=== PATIENT | female | born 1950 | race Caucasian/White ===

== ENCOUNTER 2017-05-07 11:51 | Inpatient (IN) | payer MEDICARE, BC ==
[2017-05-07] MEDS ORDERED: MAG HYDROX/ALUMINUM HYD/SIMETH 30 ML ORAL.SUSP PO (12:30)
[2017-05-07] MEDS ORDERED: CALCIUM CARBONATE 500 MG TAB.CHEW PO (12:30)
[2017-05-07] MEDS ORDERED: IBUPROFEN 400 MG TABLET. PO (12:30)
[2017-05-07] MEDS ORDERED: PROCHLORPERAZINE 25 MG SUPP.RECT. PR (12:30)
[2017-05-07] MEDS ORDERED: ACETAMINOPHEN 325 MG TABLET. PO (12:30)
[2017-05-07] MEDS ORDERED: LIDOCAINE WITH 8.4% SOD BICARB 3 ML DISP.SYRIN. (13:20)
[2017-05-07] MEDS ORDERED: MIDAZOLAM HCL/PF 2 MG/2 ML VIAL. (13:21)
[2017-05-07] MEDS ORDERED: fentaNYL PF VIAL 100 MCG/2 ML VIAL (13:21)
[2017-05-07] MEDS ORDERED: FLUMAZENIL 0.5 MG/5 ML VIAL. IV (13:21)
[2017-05-07] MEDS ORDERED: NALOXONE 0.4 MG/ML VIAL. (13:21)
[2017-05-07 13:29] LABS: INR 1.2 (0.8-1.1); PROTHROMBIN TIME PATIENT 14.3 SEC (11.7-14.0)
[2017-05-07] MEDS: fentaNYL PF VIAL 100 MCG/2 ML VIAL IV ×3 (14:00→18:33)
[2017-05-07] MEDS: MIDAZOLAM HCL/PF 2 MG/2 ML VIAL. IV (14:00)
[2017-05-07] MEDS: LIDOCAINE WITH 8.4% SOD BICARB 3 ML DISP.SYRIN. INJ (14:00)
[2017-05-07] MEDS: CIPROFLOXACIN 400MG PREMIX 200 ML IV (14:39)
[2017-05-07] MEDS: IV 1/2 NORMAL SALINE 1,000 ML IV ×2 (14:39→22:23)
[2017-05-07] MEDS: PANTOPRAZOLE IV PUSH 40 MG VIAL. IVP (14:40)
[2017-05-07] MEDS: LACTOBACILLUS RHAMNOSUS GG 1 CAPSULE. PO ×2 (14:52→21:27)
[2017-05-07] MEDS: HYDROcodone/APAP 5/325MG 1 TAB TABLET PO (21:27)
[2017-05-08] MEDS: CIPROFLOXACIN 400MG PREMIX 200 ML IV ×3 (00:17→20:31)
[2017-05-08 05:41] LABS: ADD MAN DIFF? NO
[2017-05-08 05:47] LABS: BASO % 0 % (0-3); EOS # 0.1 x10^3/uL (0.0-0.7); EOS % 2 % (0-3); HEMATOCRIT 26.9 % (36.0-47.0); HEMOGLOBIN 8.9 g/dL (12.0-15.5); LYMPH # 0.9 x10^3/uL (1.0-4.8); LYMPH % 24 % (24-48); MEAN CORPUSCULAR HEMOGLOBIN 27 pg (25-35); MEAN CORPUSCULAR HGB CONC 33 g/dL (31-37); MEAN CORPUSCULAR VOLUME 82 fL (79-100); MONO # 0.4 x10^3/uL (0.0-1.1); MONO % 11 % (0-9); NEUT # 2.3 x10^3uL (1.8-7.7); NEUT % 62 % (31-73); PLATELET COUNT 144 x10^3/uL (140-400); RED BLOOD COUNT 3.29 x10^6/uL (3.50-5.40); RED CELL DISTRIBUTION WIDTH 15.2 % (11.5-14.5); WHITE BLOOD COUNT 3.6 x10^3/uL (4.0-11.0)
[2017-05-08] MEDS: IV 1/2 NORMAL SALINE 1,000 ML IV ×2 (06:08→20:31)
[2017-05-08 06:31] LABS: ALBUMIN 2.4 g/dL (3.4-5.0); ALBUMIN/GLOBULIN RATIO 0.7 (1.0-1.7); ALK PHOS 54 U/L (46-116); ALT (SGPT) 14 U/L (14-59); ANION GAP 8 (6-14); AST (SGOT) 10 U/L (15-37); BLOOD UREA NITROGEN 7 mg/dL (7-20); BUN/CREATININE RATIO 7 (6-20); CALCIUM 8.3 mg/dL (8.5-10.1); CARBON DIOXIDE 28 mmol/L (21-32); CHLORIDE 105 mmol/L (98-107); GFR 55.6; GLUCOSE 104 mg/dL (70-99); MAGNESIUM 1.7 mg/dL (1.8-2.4); PHOSPHORUS 3.6 mg/dL (2.6-4.7); POTASSIUM 3.8 mmol/L (3.5-5.1); SODIUM 141 mmol/L (136-145); TOTAL BILIRUBIN 0.7 mg/dL (0.2-1.0); TOTAL PROTEIN 5.7 g/dL (6.4-8.2)
[2017-05-08] MEDS: LACTOBACILLUS RHAMNOSUS GG 1 CAPSULE. PO ×2 (09:10→20:31)
[2017-05-08] MEDS: PANTOPRAZOLE IV PUSH 40 MG VIAL. IVP (09:10)
[2017-05-08] MEDS ORDERED: IPRATRPIUM/ALBUTEROL 0.5/2.5MG 3 ML NEBU. IH (09:15)
[2017-05-08] MEDS ORDERED: NON FORMULARY ITEM (Albuterol Sulfate (Proair Hfa Inhaler) 1 PUFF) INH (09:15)
[2017-05-08] MEDS ORDERED: traMADol 50 MG TABLET PO (09:15)
[2017-05-08] MEDS ORDERED: ALBUTEROL SULFATE 2.5 MG/3 ML NEBU. NEB (09:45)
[2017-05-08] MEDS: PANTOPRAZOLE 40 MG TABLET.DR. PO ×2 (09:49→09:57)
[2017-05-08] MEDS: SERTRALINE 50 MG TABLET. PO (10:00)
[2017-05-08] MEDS: amLODIPine BESYLATE 5 MG TABLET PO (10:00)
[2017-05-08] MEDS: MELOXICAM 7.5 MG TABLET PO (10:01)
[2017-05-08] MEDS: LOSARTAN POTASSIUM 50 MG TABLET. PO (10:01)
[2017-05-08] MEDS: HYDROcodone/APAP 5/325MG 1 TAB TABLET PO ×2 (14:07→20:32)
[2017-05-08] MEDS: traZODone 50 MG TABLET. PO (20:32)
[2017-05-08] MEDS: PROCHLORPERAZINE 10 MG/2 ML VIAL. IV (22:46)
[2017-05-09] MEDS: PANTOPRAZOLE IV PUSH 40 MG VIAL. IVP (07:30)
[2017-05-09] MEDS: IV 1/2 NORMAL SALINE 1,000 ML IV ×2 (10:06→20:59)
[2017-05-09] MEDS: CIPROFLOXACIN 400MG PREMIX 200 ML IV ×2 (10:07→20:58)
[2017-05-09] MEDS: LACTOBACILLUS RHAMNOSUS GG 1 CAPSULE. PO ×2 (10:07→22:05)
[2017-05-09] MEDS: SERTRALINE 50 MG TABLET. PO (10:07)
[2017-05-09] MEDS: amLODIPine BESYLATE 5 MG TABLET PO (10:08)
[2017-05-09] MEDS: MELOXICAM 7.5 MG TABLET PO (10:08)
[2017-05-09] MEDS: PANTOPRAZOLE 40 MG TABLET.DR. PO (10:08)
[2017-05-09] MEDS: LOSARTAN POTASSIUM 50 MG TABLET. PO (10:08)
[2017-05-09] MEDS: HYDROcodone/APAP 5/325MG 1 TAB TABLET PO ×2 (10:41→22:05)
[2017-05-09] MEDS: ONDANSETRON PF 4 MG/2 ML VIAL. IV (21:04)
[2017-05-09] MEDS: HYDROmorphone 2 MG/ML VIAL IVP (21:06)
[2017-05-09] MEDS: ZOLPIDEM 5 MG TABLET. PO (22:04)
[2017-05-09] MEDS: traZODone 50 MG TABLET. PO (22:04)
[2017-05-10] MEDS: IV 1/2 NORMAL SALINE 1,000 ML IV ×3 (00:23→20:44)
[2017-05-10 04:36] LABS: ADD MAN DIFF? NO
[2017-05-10 04:50] LABS: BASO % 0 % (0-3); EOS # 0.1 x10^3/uL (0.0-0.7); EOS % 3 % (0-3); HEMATOCRIT 27.3 % (36.0-47.0); HEMOGLOBIN 8.9 g/dL (12.0-15.5); LYMPH # 0.8 x10^3/uL (1.0-4.8); LYMPH % 19 % (24-48); MEAN CORPUSCULAR HEMOGLOBIN 27 pg (25-35); MEAN CORPUSCULAR HGB CONC 33 g/dL (31-37); MEAN CORPUSCULAR VOLUME 82 fL (79-100); MONO # 0.4 x10^3/uL (0.0-1.1); MONO % 9 % (0-9); NEUT % 68 % (31-73); PLATELET COUNT 144 x10^3/uL (140-400); RED BLOOD COUNT 3.35 x10^6/uL (3.50-5.40); RED CELL DISTRIBUTION WIDTH 15.2 % (11.5-14.5); WHITE BLOOD COUNT 4.4 x10^3/uL (4.0-11.0)
[2017-05-10 05:01] LABS: ANION GAP 7 (6-14); BLOOD UREA NITROGEN 10 mg/dL (7-20); CALCIUM 8.1 mg/dL (8.5-10.1); CARBON DIOXIDE 27 mmol/L (21-32); CHLORIDE 104 mmol/L (98-107); GFR 55.6; GLUCOSE 143 mg/dL (70-99); POTASSIUM 3.9 mmol/L (3.5-5.1); SODIUM 138 mmol/L (136-145)
[2017-05-10] MEDS: MELOXICAM 7.5 MG TABLET PO (09:04)
[2017-05-10] MEDS: LACTOBACILLUS RHAMNOSUS GG 1 CAPSULE. PO ×2 (09:04→20:42)
[2017-05-10] MEDS: PANTOPRAZOLE 40 MG TABLET.DR. PO (09:04)
[2017-05-10] MEDS: SERTRALINE 50 MG TABLET. PO (09:04)
[2017-05-10] MEDS: amLODIPine BESYLATE 5 MG TABLET PO (09:05)
[2017-05-10] MEDS: CIPROFLOXACIN 400MG PREMIX 200 ML IV (09:05)
[2017-05-10] MEDS: LOSARTAN POTASSIUM 50 MG TABLET. PO (09:05)
[2017-05-10] MEDS: HYDROmorphone 2 MG/ML VIAL IVP (10:43)
[2017-05-10] MEDS ORDERED: cefTRIAXone SODIUM 2 GM in IV DEXTROSE 5% 100 ML IV (11:45)
[2017-05-10] MEDS: cefTRIAXone IV Push 2 GM VIAL. IVP (13:29)
[2017-05-10] MEDS: ONDANSETRON PF 4 MG/2 ML VIAL. IV (16:13)
[2017-05-10] MEDS ORDERED: NALOXONE 0.4 MG/ML VIAL. (16:48)
[2017-05-10] MEDS ORDERED: LIDOCAINE WITH 8.4% SOD BICARB 3 ML DISP.SYRIN. ×2 (16:48→17:33)
[2017-05-10] MEDS ORDERED: fentaNYL PF VIAL 100 MCG/2 ML VIAL ×2 (16:48→17:34)
[2017-05-10] MEDS ORDERED: MIDAZOLAM HCL/PF 2 MG/2 ML VIAL. ×2 (16:48→17:34)
[2017-05-10] MEDS ORDERED: FLUMAZENIL 0.5 MG/5 ML VIAL. IV (16:48)
[2017-05-10] MEDS: LIDOCAINE WITH 8.4% SOD BICARB 3 ML DISP.SYRIN. INJ (17:00)
[2017-05-10] MEDS: MIDAZOLAM HCL/PF 2 MG/2 ML VIAL. IV ×2 (17:00→17:59)
[2017-05-10] MEDS: fentaNYL PF VIAL 100 MCG/2 ML VIAL IV ×2 (17:00→17:59)
[2017-05-10] MEDS ORDERED: GELATIN SPONGE SIZE 12-7MM SPONGE. (17:37)
[2017-05-10] MEDS: traZODone 50 MG TABLET. PO (20:42)
[2017-05-10] MEDS: HYDROcodone/APAP 5/325MG 1 TAB TABLET PO (21:48)
[2017-05-11 04:53] LABS: ADD MAN DIFF? NO
[2017-05-11 05:08] LABS: BASO % 0 % (0-3); EOS # 0.1 x10^3/uL (0.0-0.7); EOS % 4 % (0-3); HEMATOCRIT 32.4 % (36.0-47.0); HEMOGLOBIN 10.4 g/dL (12.0-15.5); LYMPH # 0.7 x10^3/uL (1.0-4.8); LYMPH % 20 % (24-48); MEAN CORPUSCULAR HEMOGLOBIN 26 pg (25-35); MEAN CORPUSCULAR HGB CONC 32 g/dL (31-37); MEAN CORPUSCULAR VOLUME 82 fL (79-100); MONO # 0.3 x10^3/uL (0.0-1.1); MONO % 8 % (0-9); NEUT # 2.4 x10^3uL (1.8-7.7); NEUT % 67 % (31-73); PLATELET COUNT 150 x10^3/uL (140-400); RED BLOOD COUNT 3.95 x10^6/uL (3.50-5.40); RED CELL DISTRIBUTION WIDTH 15.4 % (11.5-14.5); WHITE BLOOD COUNT 3.6 x10^3/uL (4.0-11.0)
[2017-05-11 05:34] LABS: ANION GAP 7 (6-14); BLOOD UREA NITROGEN 10 mg/dL (7-20); CALCIUM 8.6 mg/dL (8.5-10.1); CARBON DIOXIDE 26 mmol/L (21-32); CHLORIDE 107 mmol/L (98-107); GFR 55.6; GLUCOSE 102 mg/dL (70-99); POTASSIUM 3.9 mmol/L (3.5-5.1); SODIUM 140 mmol/L (136-145)
[2017-05-11] MEDS: IV 1/2 NORMAL SALINE 1,000 ML IV ×2 (05:38→16:44)
[2017-05-11] MEDS: LACTOBACILLUS RHAMNOSUS GG 1 CAPSULE. PO ×2 (08:21→20:19)
[2017-05-11] MEDS: SERTRALINE 50 MG TABLET. PO (08:21)
[2017-05-11] MEDS: oxyCODONE IR 5 MG TABLET PO ×3 (08:22→22:33)
[2017-05-11] MEDS: PANTOPRAZOLE 40 MG TABLET.DR. PO (08:22)
[2017-05-11] MEDS: LOSARTAN POTASSIUM 50 MG TABLET. PO (08:22)
[2017-05-11] MEDS: MELOXICAM 7.5 MG TABLET PO (08:22)
[2017-05-11] MEDS: amLODIPine BESYLATE 5 MG TABLET PO (08:23)
[2017-05-11] MEDS: cefTRIAXone IV Push 2 GM VIAL. IVP (11:18)
[2017-05-11] MEDS: traZODone 50 MG TABLET. PO (20:19)
[2017-05-11] MEDS: NYSTATIN TOPICAL POWDER 15GM BOTTLE. TP (20:20)
[2017-05-12] MEDS: IV 1/2 NORMAL SALINE 1,000 ML IV ×2 (03:25→12:23)
[2017-05-12 04:51] LABS: ADD MAN DIFF? NO
[2017-05-12 04:59] LABS: BASO % 1 % (0-3); EOS # 0.3 x10^3/uL (0.0-0.7); EOS % 8 % (0-3); HEMATOCRIT 28.1 % (36.0-47.0); LYMPH # 0.5 x10^3/uL (1.0-4.8); LYMPH % 16 % (24-48); MEAN CORPUSCULAR HEMOGLOBIN 26 pg (25-35); MEAN CORPUSCULAR HGB CONC 32 g/dL (31-37); MEAN CORPUSCULAR VOLUME 82 fL (79-100); MONO # 0.3 x10^3/uL (0.0-1.1); MONO % 9 % (0-9); NEUT # 2.2 x10^3uL (1.8-7.7); NEUT % 67 % (31-73); PLATELET COUNT 150 x10^3/uL (140-400); RED BLOOD COUNT 3.44 x10^6/uL (3.50-5.40); RED CELL DISTRIBUTION WIDTH 15.3 % (11.5-14.5); WHITE BLOOD COUNT 3.4 x10^3/uL (4.0-11.0)
[2017-05-12 05:13] LABS: ANION GAP 5 (6-14); BLOOD UREA NITROGEN 8 mg/dL (7-20); CALCIUM 8.4 mg/dL (8.5-10.1); CARBON DIOXIDE 27 mmol/L (21-32); CHLORIDE 105 mmol/L (98-107); CREATININE 0.8 mg/dL (0.6-1.0); GLUCOSE 114 mg/dL (70-99); POTASSIUM 3.9 mmol/L (3.5-5.1); SODIUM 137 mmol/L (136-145)
[2017-05-12] MEDS: NYSTATIN TOPICAL POWDER 15GM BOTTLE. TP ×2 (08:31→20:23)
[2017-05-12] MEDS: LOSARTAN POTASSIUM 50 MG TABLET. PO (08:32)
[2017-05-12] MEDS: amLODIPine BESYLATE 5 MG TABLET PO (08:32)
[2017-05-12] MEDS: SERTRALINE 50 MG TABLET. PO (08:32)
[2017-05-12] MEDS: PANTOPRAZOLE 40 MG TABLET.DR. PO (08:32)
[2017-05-12] MEDS: MELOXICAM 7.5 MG TABLET PO (08:33)
[2017-05-12] MEDS: LACTOBACILLUS RHAMNOSUS GG 1 CAPSULE. PO ×2 (08:33→20:22)
[2017-05-12] MEDS: MAGNESIUM SULFATE 2GM 50 ML IV (12:47)
[2017-05-12] MEDS: cefTRIAXone IV Push 2 GM VIAL. IVP (12:48)
[2017-05-12] MEDS: oxyCODONE IR 5 MG TABLET PO ×2 (12:53→20:23)
[2017-05-12] MEDS: traZODone 50 MG TABLET. PO (20:22)
[2017-05-13] MEDS: IV 1/2 NORMAL SALINE 1,000 ML IV ×3 (04:00→18:23)
[2017-05-13 05:48] LABS: ADD MAN DIFF? NO
[2017-05-13 06:25] LABS: ANION GAP 6 (6-14); BLOOD UREA NITROGEN 5 mg/dL (7-20); CALCIUM 7.8 mg/dL (8.5-10.1); CARBON DIOXIDE 26 mmol/L (21-32); CHLORIDE 107 mmol/L (98-107); CREATININE 0.8 mg/dL (0.6-1.0); GLUCOSE 104 mg/dL (70-99); POTASSIUM 3.8 mmol/L (3.5-5.1); SODIUM 139 mmol/L (136-145)
[2017-05-13 07:05] LABS: BASO % 1 % (0-3); EOS # 0.3 x10^3/uL (0.0-0.7); EOS % 9 % (0-3); HEMATOCRIT 27.3 % (36.0-47.0); HEMOGLOBIN 8.9 g/dL (12.0-15.5); LYMPH # 0.7 x10^3/uL (1.0-4.8); LYMPH % 24 % (24-48); MEAN CORPUSCULAR HEMOGLOBIN 27 pg (25-35); MEAN CORPUSCULAR HGB CONC 33 g/dL (31-37); MEAN CORPUSCULAR VOLUME 82 fL (79-100); MONO # 0.3 x10^3/uL (0.0-1.1); MONO % 9 % (0-9); NEUT # 1.6 x10^3uL (1.8-7.7); NEUT % 57 % (31-73); PLATELET COUNT 160 x10^3/uL (140-400); RED BLOOD COUNT 3.35 x10^6/uL (3.50-5.40); RED CELL DISTRIBUTION WIDTH 15.4 % (11.5-14.5); WHITE BLOOD COUNT 2.9 x10^3/uL (4.0-11.0)
[2017-05-13] MEDS: NYSTATIN TOPICAL POWDER 15GM BOTTLE. TP ×2 (09:14→20:48)
[2017-05-13] MEDS: LACTOBACILLUS RHAMNOSUS GG 1 CAPSULE. PO ×2 (09:15→20:48)
[2017-05-13] MEDS: PANTOPRAZOLE 40 MG TABLET.DR. PO (09:15)
[2017-05-13] MEDS: MELOXICAM 7.5 MG TABLET PO (09:15)
[2017-05-13] MEDS: LOSARTAN POTASSIUM 50 MG TABLET. PO (09:16)
[2017-05-13] MEDS: SERTRALINE 50 MG TABLET. PO (09:16)
[2017-05-13] MEDS: amLODIPine BESYLATE 5 MG TABLET PO (09:16)
[2017-05-13 11:30] LABS: POC GLUCOSE 95 mg/dL (70-99)
[2017-05-13] MEDS: clonazePAM 1 MG TABLET PO ×3 (11:38→18:24)
[2017-05-13] MEDS: cefTRIAXone IV Push 2 GM VIAL. IVP (11:39)
[2017-05-13] MEDS ORDERED: SALIVA STIMULANT AGENT 44ML SPRAY BOTTLE. PO (12:00)
[2017-05-13] MEDS: traZODone 50 MG TABLET. PO (20:48)
[2017-05-13] MEDS: HYDROcodone/APAP 5/325MG 1 TAB TABLET PO (20:55)
[2017-05-14] MEDS: IV 1/2 NORMAL SALINE 1,000 ML IV ×2 (02:36→12:59)
[2017-05-14] MEDS: HYDROcodone/APAP 5/325MG 1 TAB TABLET PO ×2 (06:23→19:43)
[2017-05-14 06:46] LABS: ADD MAN DIFF? NO
[2017-05-14 07:03] LABS: BASO % 1 % (0-3); EOS # 0.3 x10^3/uL (0.0-0.7); EOS % 10 % (0-3); HEMATOCRIT 29.9 % (36.0-47.0); HEMOGLOBIN 9.7 g/dL (12.0-15.5); LYMPH # 0.8 x10^3/uL (1.0-4.8); LYMPH % 29 % (24-48); MEAN CORPUSCULAR HEMOGLOBIN 26 pg (25-35); MEAN CORPUSCULAR HGB CONC 32 g/dL (31-37); MEAN CORPUSCULAR VOLUME 81 fL (79-100); MONO # 0.3 x10^3/uL (0.0-1.1); MONO % 9 % (0-9); NEUT # 1.4 x10^3uL (1.8-7.7); NEUT % 52 % (31-73); PLATELET COUNT 188 x10^3/uL (140-400); RED BLOOD COUNT 3.69 x10^6/uL (3.50-5.40); RED CELL DISTRIBUTION WIDTH 15.8 % (11.5-14.5); WHITE BLOOD COUNT 2.7 x10^3/uL (4.0-11.0)
[2017-05-14 07:06] LABS: ANION GAP 9 (6-14); BLOOD UREA NITROGEN 7 mg/dL (7-20); CALCIUM 8.9 mg/dL (8.5-10.1); CARBON DIOXIDE 26 mmol/L (21-32); CHLORIDE 108 mmol/L (98-107); CREATININE 0.7 mg/dL (0.6-1.0); GLUCOSE 116 mg/dL (70-99); POTASSIUM 3.7 mmol/L (3.5-5.1); SODIUM 143 mmol/L (136-145)
[2017-05-14] MEDS: clonazePAM 1 MG TABLET PO ×2 (09:44→19:43)
[2017-05-14] MEDS: SERTRALINE 50 MG TABLET. PO (09:45)
[2017-05-14] MEDS: MELOXICAM 7.5 MG TABLET PO (09:45)
[2017-05-14] MEDS: PANTOPRAZOLE 40 MG TABLET.DR. PO (09:45)
[2017-05-14] MEDS: amLODIPine BESYLATE 5 MG TABLET PO (09:45)
[2017-05-14] MEDS: LACTOBACILLUS RHAMNOSUS GG 1 CAPSULE. PO ×2 (09:46→19:44)
[2017-05-14] MEDS: LOSARTAN POTASSIUM 50 MG TABLET. PO (09:46)
[2017-05-14] MEDS: NYSTATIN TOPICAL POWDER 15GM BOTTLE. TP ×2 (10:00→21:50)
[2017-05-14] MEDS: cefTRIAXone IV Push 2 GM VIAL. IVP (12:58)
[2017-05-14 14:29] LABS: C DIFF BY PCR Negative (Negative)
[2017-05-14] MEDS: MEROPENEM IV Push 500 MG VIAL. IVP (17:42)
[2017-05-14] MEDS ORDERED: MEROPENEM 500 MG in IV NORMAL SALINE 50ML 50 ML IV (18:00)
[2017-05-14] MEDS: traZODone 50 MG TABLET. PO (19:44)
[2017-05-15] MEDS: MEROPENEM IV Push 500 MG VIAL. IVP ×4 (00:16→17:42)
[2017-05-15] MEDS: IV 1/2 NORMAL SALINE 1,000 ML IV ×2 (00:17→10:23)
[2017-05-15] MEDS: HYDROcodone/APAP 5/325MG 1 TAB TABLET PO ×2 (00:21→08:50)
[2017-05-15 04:12] LABS: ADD MAN DIFF? NO
[2017-05-15 04:22] LABS: BASO % 1 % (0-3); EOS # 0.3 x10^3/uL (0.0-0.7); EOS % 10 % (0-3); HEMATOCRIT 27.7 % (36.0-47.0); HEMOGLOBIN 9.1 g/dL (12.0-15.5); LYMPH # 0.9 x10^3/uL (1.0-4.8); LYMPH % 28 % (24-48); MEAN CORPUSCULAR HEMOGLOBIN 27 pg (25-35); MEAN CORPUSCULAR HGB CONC 33 g/dL (31-37); MEAN CORPUSCULAR VOLUME 81 fL (79-100); MONO # 0.3 x10^3/uL (0.0-1.1); MONO % 10 % (0-9); NEUT # 1.7 x10^3uL (1.8-7.7); NEUT % 52 % (31-73); PLATELET COUNT 201 x10^3/uL (140-400); RED BLOOD COUNT 3.42 x10^6/uL (3.50-5.40); RED CELL DISTRIBUTION WIDTH 16.1 % (11.5-14.5); WHITE BLOOD COUNT 3.3 x10^3/uL (4.0-11.0)
[2017-05-15 04:38] LABS: ANION GAP 8 (6-14); BLOOD UREA NITROGEN 10 mg/dL (7-20); CALCIUM 8.8 mg/dL (8.5-10.1); CARBON DIOXIDE 27 mmol/L (21-32); CHLORIDE 107 mmol/L (98-107); CREATININE 0.9 mg/dL (0.6-1.0); GFR 62.8; GLUCOSE 121 mg/dL (70-99); SODIUM 142 mmol/L (136-145)
[2017-05-15] MEDS: PANTOPRAZOLE 40 MG TABLET.DR. PO (05:42)
[2017-05-15] MEDS: LACTOBACILLUS RHAMNOSUS GG 1 CAPSULE. PO ×2 (08:46→20:49)
[2017-05-15] MEDS: SERTRALINE 50 MG TABLET. PO (08:46)
[2017-05-15] MEDS: MELOXICAM 7.5 MG TABLET PO (08:46)
[2017-05-15] MEDS: amLODIPine BESYLATE 5 MG TABLET PO (08:47)
[2017-05-15] MEDS: LOSARTAN POTASSIUM 50 MG TABLET. PO (08:47)
[2017-05-15] MEDS: NYSTATIN TOPICAL POWDER 15GM BOTTLE. TP ×2 (09:00→20:49)
[2017-05-15] MEDS: traZODone 50 MG TABLET. PO (20:49)
[2017-05-15] MEDS: clonazePAM 1 MG TABLET PO (23:18)
[2017-05-16] MEDS: MEROPENEM IV Push 500 MG VIAL. IVP ×4 (00:41→17:41)
[2017-05-16] MEDS: IV 1/2 NORMAL SALINE 1,000 ML IV ×3 (03:27→16:23)
[2017-05-16 04:25] LABS: ADD MAN DIFF? NO
[2017-05-16 04:29] LABS: BASO % 1 % (0-3); EOS # 0.4 x10^3/uL (0.0-0.7); EOS % 10 % (0-3); HEMATOCRIT 29.8 % (36.0-47.0); HEMOGLOBIN 9.9 g/dL (12.0-15.5); LYMPH # 1.2 x10^3/uL (1.0-4.8); LYMPH % 32 % (24-48); MEAN CORPUSCULAR HEMOGLOBIN 27 pg (25-35); MEAN CORPUSCULAR HGB CONC 33 g/dL (31-37); MEAN CORPUSCULAR VOLUME 81 fL (79-100); MONO # 0.4 x10^3/uL (0.0-1.1); MONO % 10 % (0-9); NEUT # 1.8 x10^3uL (1.8-7.7); NEUT % 47 % (31-73); PLATELET COUNT 235 x10^3/uL (140-400); RED BLOOD COUNT 3.66 x10^6/uL (3.50-5.40); WHITE BLOOD COUNT 3.7 x10^3/uL (4.0-11.0)
[2017-05-16 04:49] LABS: ANION GAP 6 (6-14); BLOOD UREA NITROGEN 11 mg/dL (7-20); CALCIUM 9.2 mg/dL (8.5-10.1); CARBON DIOXIDE 29 mmol/L (21-32); CHLORIDE 107 mmol/L (98-107); CREATININE 0.9 mg/dL (0.6-1.0); GFR 62.8; GLUCOSE 111 mg/dL (70-99); POTASSIUM 4.5 mmol/L (3.5-5.1); SODIUM 142 mmol/L (136-145)
[2017-05-16] MEDS: MELOXICAM 7.5 MG TABLET PO (09:45)
[2017-05-16] MEDS: HYDROcodone/APAP 5/325MG 1 TAB TABLET PO (09:46)
[2017-05-16] MEDS: LACTOBACILLUS RHAMNOSUS GG 1 CAPSULE. PO ×2 (09:46→20:25)
[2017-05-16] MEDS: amLODIPine BESYLATE 5 MG TABLET PO (09:46)
[2017-05-16] MEDS: LOSARTAN POTASSIUM 50 MG TABLET. PO (09:47)
[2017-05-16] MEDS: NYSTATIN TOPICAL POWDER 15GM BOTTLE. TP ×2 (09:47→20:26)
[2017-05-16] MEDS: SERTRALINE 50 MG TABLET. PO (09:47)
[2017-05-16] MEDS: PANTOPRAZOLE 40 MG TABLET.DR. PO (09:47)
[2017-05-16] MEDS: clonazePAM 1 MG TABLET PO ×2 (09:49→20:25)
[2017-05-16] MEDS: IOHEXOL 240 MG/ML 50ML VIAL. PO (10:00)
[2017-05-16] MEDS: IOHEXOL 300 MG/ML 100ML VIAL. IV (10:00)
[2017-05-16] MEDS ORDERED: CONTRAST GIVEN MC (10:00)
[2017-05-16] MEDS: traZODone 50 MG TABLET. PO (20:26)
[2017-05-17] MEDS: MEROPENEM IV Push 500 MG VIAL. IVP ×4 (00:13→18:00)
[2017-05-17] MEDS: IV 1/2 NORMAL SALINE 1,000 ML IV ×2 (00:14→12:23)
[2017-05-17] MEDS: HYDROcodone/APAP 5/325MG 1 TAB TABLET PO ×2 (05:46→09:30)
[2017-05-17] MEDS: NYSTATIN TOPICAL POWDER 15GM BOTTLE. TP (09:00)
[2017-05-17] MEDS: clonazePAM 1 MG TABLET PO (09:28)
[2017-05-17] MEDS: PANTOPRAZOLE 40 MG TABLET.DR. PO (09:28)
[2017-05-17] MEDS: LACTOBACILLUS RHAMNOSUS GG 1 CAPSULE. PO (09:28)
[2017-05-17] MEDS: LOSARTAN POTASSIUM 50 MG TABLET. PO (09:29)
[2017-05-17] MEDS: amLODIPine BESYLATE 5 MG TABLET PO (09:29)
[2017-05-17] MEDS: SERTRALINE 50 MG TABLET. PO (09:29)
[2017-05-17] MEDS: MELOXICAM 7.5 MG TABLET PO (09:30)
== END 2017-05-17 20:23 | disposition home or self-care (01) | DRG 871 ==
LOC: 6 SOUTH 11:51
PROC: 0J9C30Z Drainage of Pelvic Region Subcutaneous Tissue and Fascia with Drainage Device, Percutaneous Approach (ICD-10-PCS; 2017-05-07)
PROC: 0J9C30Z Drainage of Pelvic Region Subcutaneous Tissue and Fascia with Drainage Device, Percutaneous Approach (ICD-10-PCS; principal; 2017-05-10)
DX: A41.9 Sepsis, unspecified organism (principal); E43 Unspecified severe protein-calorie malnutrition; E66.01 Morbid (severe) obesity due to excess calories; K57.20 Diverticulitis of large intestine with perforation and abscess without bleeding; Z68.41 Body mass index [BMI] 40.0-44.9, adult; B37.2 Candidiasis of skin and nail; E11.9 Type 2 diabetes mellitus without complications; B96.20 Unspecified Escherichia coli [E. coli] as the cause of diseases classified elsewhere; F41.9 Anxiety disorder, unspecified; N73.9 Female pelvic inflammatory disease, unspecified; I10 Essential (primary) hypertension; J45.909 Unspecified asthma, uncomplicated; K44.9 Diaphragmatic hernia without obstruction or gangrene; K59.00 Constipation, unspecified; M19.90 Unspecified osteoarthritis, unspecified site; Z96.659 Presence of unspecified artificial knee joint; Z82.3 Family history of stroke; Z82.49 Family history of ischemic heart disease and other diseases of the circulatory system; Z83.3 Family history of diabetes mellitus; Z87.442 Personal history of urinary calculi; Z88.0 Allergy status to penicillin; Z88.5 Allergy status to narcotic agent; Z90.49 Acquired absence of other specified parts of digestive tract
CPT/HCPCS: 36415; 49406; 74176; 74177; 80048; 80053; 82962; 83735; 84100; 85025; 85610; 87071; 87075; 87186; 87205; 87324; 94760; 97161-GP; 97165-GO; 99152; 99153; A4215; C1729; C1894; C9113; J0696; J0744; J0780; J1170; J2185; J2250; J2405; J3010; J3490; J7060; Q9966; Q9967

== ENCOUNTER → 2017-06-17 | Outpatient (CLI) | payer MEDICARE | END | disposition home or self-care (01) | LOC: KCIC MRI 09:50 | DX: M75.121 Complete rotator cuff tear or rupture of right shoulder, not specified as traumatic (principal); M19.011 Primary osteoarthritis, right shoulder; M25.411 Effusion, right shoulder; M62.511 Muscle wasting and atrophy, not elsewhere classified, right shoulder; R60.0 Localized edema | CPT/HCPCS: 73221 ==

== ENCOUNTER 2018-04-29 10:44 | Inpatient (IN) | payer MEDICARE ==
[~2018-04-29] VITALS: Ht 154.9 cm; Wt 95.8 kg
[~2018-04-29 10:44] MED LIST: ALBU2.5V8 INH; AMLO5TAB4 PO; CEFP200T PO; CLON0.25 PO; CLON1TAB11 PO; DEXT30TA2 PO; DICL75TA PO; ESTR0.5T PO; FURO20TA3 PO; HYDR-2145 PO; IPRA3AMP29 IH; LOSA-73 PO; LOSA100T14 PO; MEDR2.5T28 PO; MELO15TA23 PO; METR500T PO; OMEP20TA63 PO; PANT40TA5 PO; SERT100T8 PO; SERT50TA8 PO; TRAM50TA PO; TRAZ-85 PO; VERA80TA2 PO
[2018-04-29 12:30] VITALS: BP 127/49
--- NOTE | 2018-04-29 12:30 | NUR ---
Pt transferred from [place] via [facility] with EMS. Report received from Shannon. Upon arrival pt si A&O X4, c/o pain only with movement, VSS. Completed admission and assessment. Oriented to room and routines. Paged Dr. Pearl for orders. Call light within reach. Will continue to monitor.
[2018-04-29] MEDS ORDERED: ONDANSETRON PF 4 MG/2 ML VIAL. IV PRN (13:15)
[2018-04-29 13:45] LABS: BASO % 0 % (0-3); EOS % 0 % (0-3); HEMATOCRIT 31.5 % (36.0-47.0); HEMOGLOBIN 10.4 g/dL (12.0-15.5); LYMPH # 0.7 x10^3/uL (1.0-4.8); LYMPH % 11 % (24-48); MEAN CORPUSCULAR HEMOGLOBIN 25 pg (25-35); MEAN CORPUSCULAR HGB CONC 33 g/dL (31-37); MEAN CORPUSCULAR VOLUME 77 fL (79-100); MONO # 0.1 x10^3/uL (0.0-1.1); MONO % 2 % (0-9); NEUT # 5.4 x10^3uL (1.8-7.7); NEUT % 87 % (31-73); PLATELET COUNT 232 x10^3/uL (140-400); RED BLOOD COUNT 4.09 x10^6/uL (3.50-5.40); RED CELL DISTRIBUTION WIDTH 16.8 % (11.5-14.5); WHITE BLOOD COUNT 6.3 x10^3/uL (4.0-11.0)
[2018-04-29 14:10] LABS: CALCIUM 8.9 mg/dL (8.5-10.1); GFR 55.5; POTASSIUM 4.1 mmol/L (3.5-5.1)
[2018-04-29 14:23] LABS: % BANDS 7 % (0-9); % LYMPHS 12 % (24-48); % SEGS 81 % (35-66); ANISOCYTOSIS SLIGHT; MICROCYTOSIS SLIGHT; OVALOCYTES FEW; PLT ESTIMATE ADEQUATE (ADEQUATE); POIKILOCYTOSIS SLIGHT
[2018-04-29] MEDS: fentaNYL PF VIAL 100 MCG/2 ML VIAL IV PRN ×2 (14:27→20:34)
[2018-04-29] MEDS ORDERED: GADOBUTROL 10 MMOL/10 ML VIAL IV ONE ×2 (15:30)
--- NOTE | 2018-04-29 16:06 | RAD ---
MRI of the lumbar spine without and with contrast 04/29/2018 CLINICAL HISTORY: Low back pain. TECHNIQUE: Unenhanced T1-weighted and T2-weighted sagittal and axial and inversion recovery sagittal images of the lumbar spine were obtained. After the intravenous administration of 10 cc of Gadavist, enhanced T1-weighted sagittal and axial images of the lumbar spine were obtained. FINDINGS: For the purposes of this dictation 5 lumbar vertebrae have been assumed. The last well-defined lumbar-appearing disc space will be referred to as L5-S1. L5 is partially sacralized. Mild to moderate S-shaped curvature of the thoracolumbar spine is seen. Degenerative signal changes are seen involving all of the disks of the lumbar spine. Loss of height of the L4-5 and L5-S1 discs is noted. Degenerative signal changes are seen within the marrow surrounding these discs. The conus medullaris is normal in position and signal characteristics. No area of abnormal contrast enhancement is seen. At the L1-2 disc space there is a mild generalized disc bulge. Degenerative changes are seen involving the facet joints bilaterally. These findings do not result in significant central spinal canal or neural foraminal stenosis. At the L2-3 disc space there is a mild generalized disc bulge. Degenerative changes are seen involving the facet joints bilaterally. These findings result in mild central spinal canal stenosis. No neural foraminal stenosis is seen. At the L3-4 disc space there is a moderate generalized disc bulge. Degenerative changes are seen involving the facet joints bilaterally. There is moderate ligamentum flavum hypertrophy bilaterally. There are small to moderate-sized facet joint effusions, right greater than left. These findings when combined result in moderate to severe central spinal canal stenosis. Mild bilateral neural foraminal stenosis is seen. At the L4-5 disc space there is a mild generalized disc bulge. Degenerative changes are seen involving the facet joints bilaterally. These findings when combined do not result in significant central spinal canal or neural foraminal stenosis. The L5-S1 disc space there is a mild generalized disc bulge. Degenerative changes are seen involving the facet joints bilaterally. These findings when combined do not result in significant central spinal canal or neural foraminal stenosis. IMPRESSION: The changes of degenerative disc disease are seen throughout the lumbar spine. These findings result in mild central spinal canal stenosis at L2-3 and moderate to severe central spinal canal stenosis at L3-4. Mild bilateral neural foraminal stenosis is seen L3-4. Electronically signed by: Benny Aguayo MD (04/29/2018 4:01 PM) [email or web address]
[2018-04-29 19:00] VITALS: BP 142/98
[2018-04-29] MEDS: clonazePAM 1 MG TABLET PO PRN (20:27)
[2018-04-29] MEDS: NYSTATIN TOPICAL POWDER 15GM BOTTLE. TP SCH (20:27)
[2018-04-29] MEDS: traZODone 50 MG TABLET. PO SCH (20:27)
[2018-04-29 23:00] VITALS: BP 124/58
[2018-04-30 02:43] VITALS: BP 118/88
[2018-04-30 07:00] VITALS: BP 144/57
[2018-04-30] MEDS: PANTOPRAZOLE 40 MG TABLET.DR. PO SCH (07:01)
[2018-04-30] MEDS: SERTRALINE 50 MG TABLET. PO SCH (08:43)
[2018-04-30] MEDS: MELOXICAM 7.5 MG TABLET PO SCH (08:44)
[2018-04-30] MEDS: amLODIPine BESYLATE 5 MG TABLET PO SCH (08:44)
[2018-04-30] MEDS: clonazePAM 1 MG TABLET PO PRN ×2 (08:44→21:29)
[2018-04-30] MEDS: LOSARTAN POTASSIUM 50 MG TABLET. PO SCH (08:44)
[2018-04-30] MEDS: fentaNYL PF VIAL 100 MCG/2 ML VIAL IV PRN ×2 (08:45→21:32)
[2018-04-30] MEDS: NYSTATIN TOPICAL POWDER 15GM BOTTLE. TP SCH ×2 (08:45→21:00)
[2018-04-30] MEDS ORDERED: ACETAMINOPHEN 325 MG TABLET. PO PRN (10:00)
--- NOTE | 2018-04-30 10:40 | NUR ---
IP> Pt may be removed form contact precautions. VRE in abd fluid has been resolved.
[2018-04-30 11:00] VITALS: BP 147/84
[2018-04-30] MEDS ORDERED: ALBUTEROL SULFATE 2.5 MG/3 ML NEBU. INH PRN ×2 (11:30→12:21)
[2018-04-30] MEDS ORDERED: IPRATRPIUM/ALBUTEROL 0.5/2.5MG 3 ML NEBU. IH PRN (11:30)
--- NOTE | 2018-04-30 11:41 | PN ---
DATE: 04/30/2018 SUBJECTIVE: The patient is resting flat in bed, comfortably in no apparent distress, continued to have severe pain with any movement. The pain starts in lower back and radiates to both legs, has also tingling and numbness, although she denied any loss of bowel or bladder control. She did have an MRI of her lumbar spine, which showed that there are degenerative changes seen throughout the lumbar spine. These findings resulted in mild central spinal canal stenosis at L2-L3 and ewppcogk-st-lhphys central spinal canal stenosis at L3-L4. She has mild lateral neural foraminal stenosis seen at L3-L4. We have consulted the neurosurgeon as well as the neurologist. PHYSICAL EXAMINATION: GENERAL: When I examined her this morning, she looked well and was clearly in no apparent respiratory distress. She was slightly pale, but no jaundice, cyanosis, or thyromegaly. No jugular venous distension. No lower limb edema. VITAL SIGNS: Heart rate was 63, blood pressure 144/57, temperature was 97.9, respiratory rate was 18 and oxygen saturation was 97%. HEAD, EYES, EARS, NOSE AND THROAT: Showed normocephalic, atraumatic. NECK: Supple. HEART: Showed normal first and second sounds. No gallop, rub or murmur. CHEST: Clear to auscultation. No crepitation or rhonchi. ABDOMEN: Distended, soft, nontender. NEUROLOGIC: She was awake, alert, responding appropriately. All cranial nerves intact. LABORATORY DATA: Showed white cell count 6300, hemoglobin 10, hematocrit 31, MCV 77, and platelet count 232,000. Her chemistry showed serum sodium 142, potassium 4.1, chloride 103, bicarbonate 29, anion gap of 10, BUN 21, creatinine 1. Her aPTT was 32. ASSESSMENT AND PLAN: New onset of low back pain that worsened over the last 3 days with difficulty walking, pain radiating to both lower extremities, tingling and numbness in her feet. MRI showed spondylolisthesis, well-defined lumbar appearing disk space with S-shaped curvature of the thoracolumbar spine is seen. She has also mild central spinal canal stenosis at L2-L3 and pavqxlwy-gb-gblxei central spinal canal stenosis at L3-L4. I will start her also on Lovenox for DVT prophylaxis. Would continue with pain management and await evaluation by the neurosurgeon and neurologist. ALISHA ROSARIO MD DR: Ashlee JOB#: [id number] / [id number]
--- NOTE | 2018-04-30 11:51 | HP ---
ADMIT DATE: 04/29/2018 HISTORY OF PRESENT ILLNESS: The patient is a 68-year-old female patient who presented to [facility] Emergency Room with a complaint of intermittent low back pain since the end of March. She has had no trauma. Her pain has progressed over the last 3 days and yesterday, she was unable to sit up in the chair. She also has radiculopathy going down to her feet, worse in the right side. She described it as a tingling sensation. She denied any loss of bowel or bladder control. She denied any perineal numbness or changes in sensation. The patient has had plain x-rays done, which she was told that showed only arthritis. She has recently completed a steroid taper, which seem to help at first, but the pain has since become worse. Her muscles became spasm with even the smallest movement. She is fine when she is sitting still in bed without any movement, but the moment she starts to move her pain gets worse. She was evaluated in the Emergency Room and basically had a CT scan of the lumbar spine there, which showed moderate degenerative changes of the lumbar spine with multilevel disk bulges throughout the lumbar spine and she has 7 mm retrolisthesis of L1 and L2 and right-sided L4 ____ and she was transferred to this hospital due to get an MRI and to consult the neurosurgeon as well as neurologist. While at [facility], she also found to have a UTI and was started on IV antibiotic after obtaining the appropriate culture. When I examined her this morning, she continued to have severe pain the moment she attempts to move or sit or change position. PAST MEDICAL HISTORY: Significant for obesity with a body mass index of 40 kilograms per square meter. She is also known to have hypertension, bronchial asthma, generalized osteoarthritis, previous episode of diverticulitis, history of VRE as well as E. coli. She did have diverticular abscess and was admitted to [facility] on 05/07/2017 and underwent placement of a drain and the abscess, which showed the growth of Streptococcus anginosus as well as E. coli that was resistant to the quinolone. PAST SURGICAL HISTORY: Significant for breast biopsy, cholecystectomy, total knee replacement, tonsillectomy and drainage with diverticular abscess. REVIEW OF SYSTEMS: As per history of present illness. ALLERGIES: She is allergic to PENICILLIN, although she did tolerate amoxicillin. SHE IS ALSO ALLERGIC TO AUGMENTIN, CODEINE, CLINDAMYCIN, AND MORPHINE. FAMILY HISTORY: Positive for cancer, coronary artery disease, diabetes, hypertension, and CVA. SOCIAL HISTORY: She is and lives with her . She does not smoke, drink alcohol or use recreational drugs. She has been using a walker since her symptoms started at the end of March. MEDICATIONS: She is currently on following medications: She is on ipratropium bromide/albuterol sulfate 3 mL by nebulizer 4 times a day, albuterol sulfate 1 puff every 6 hours, amlodipine 5 mg once a day, losartan potassium 50 mg once a day, meloxicam 15 mg once a day, clonazepam 1 mg 3 times a day, sertraline 50 mg daily and trazodone 50 mg at bedtime, omeprazole 20 mg daily. PHYSICAL EXAMINATION: GENERAL: On arrival to the Emergency Room at [facility], she looked well and was clearly in no apparent respiratory distress. No pallor, jaundice or cyanosis. No lymphadenopathy, no thyromegaly. No jugular venous distention. No limb edema. VITAL SIGNS: Her heart rate was 59, blood pressure 130/60, temperature was 98, respiratory rate was 18 and oxygen saturation was 96% on room air. HEAD, EYES, EARS, NOSE AND THROAT: Showed normocephalic, atraumatic. NECK: Supple. HEART: Showed normal first and second sounds. No gallop or murmur. CHEST: Clear to auscultation. No crepitation or rhonchi. ABDOMEN: Distended, soft, nontender. No guarding or rigidity. No organomegaly. All hernial orifices intact. Bowel sounds normal. NEUROLOGIC: She is awake, alert, responding appropriately. All cranial nerves intact. She moves her upper extremities without difficulty. She does complain of pain whenever she moves her lower extremities. She has also feeling of tingling and numbness in feet. LABORATORY DATA: While in the Emergency Room there, she has had lab work done as well as an EKG and a CT scan of the lumbar spine. Her white cell count was 5100, hemoglobin 10, hematocrit 31, MCV 77, and platelet count 241,000 with normal manual differential. Her urinalysis showed the urine was cloudy with a pH of 7, specific gravity of 1.010. The urine was negative for glucose, bilirubin, ketones and there was a trace of blood, negative for protein, there was moderate amount of leukocyte esterase with 20-40 wbc's, no rbc's and many bacteria. Her serum sodium was 140, potassium 3.7, chloride 104, bicarbonate was 32, glucose was 79, BUN 21, creatinine 1. Total bilirubin, AST, ALT, alkaline phosphatase were normal. Total protein was 6.7, albumin 3.3, calcium was 8.6, estimated GFR was 55 mL per minute. Her EKG showed that she was in sinus rhythm and no ST segment elevation or depression. Her CT scan of the lumbar spine showed that the lumbar vertebral body heights are maintained. Examination is limited due to exaggerated kyphosis and dextroscoliosis, bony fusions of L5-S1 vertebral levels. There is no obvious acute fracture identified. Moderate intervertebral disk height loss with a moderate disk bulges identified in the lumbar spine. There is mild 7 mm retrolisthesis of L1 and L2 and moderate facet degenerative changes, right-sided L4 ____ cystic structures identified in the left kidney measuring 3 cm, likely cyst similar to the prior CT scan, moderate aortic atherosclerosis, partially visualized; fatty atrophic changes of the pancreas. ASSESSMENT AND PLAN: The patient was admitted to [facility] with lower back pain that started on the end of March and has progressed recently with difficulty walking and pain is radiating to both legs with tingling and numbness. She denied any problem controlling her bladder or bowel. Plan is to reconcile all her medication, continue with the pain management and will consult the neurologist as well as the neurosurgeon and we ordered an MRI. ALISHA ROSARIO MD DR: JASWINDER/natalya JOB#: [id number] / [id number]
[2018-04-30] MEDS: ENOXAPARIN 40 MG/0.4 ML SYRINGE. SQ SCH (12:13)
--- NOTE | 2018-04-30 12:56 | NUR ---
SW following for discharge planning. Discussed with RN, pt is from home with , neuro consulted. RN advised no SW needs at this time. SW will continue to follow.
--- NOTE | 2018-04-30 14:01 | PDOC ---
Provider Note Provider Note patient seen and examined c/o back pain, no leg pain neuro intact significant scoliosis and moderately severe stenosis at L4-[address] Fofana and Dr. Bedoya for conservative management full consult dictated XIOMARA GARCIA MD Apr 30, 2018 14:00
[2018-04-30] MEDS ORDERED: methylPREDNISolone ACETATE 40 MG/ML VIAL. IM ONE (14:45)
[2018-04-30] MEDS ORDERED: BUPIVACAINE MPF 0.25% 10 ML VIAL. IJ ONE (14:45)
[2018-04-30 15:00] VITALS: BP 129/97
[2018-04-30] MEDS ORDERED: BUPIVACAINE MPF 0.25% 10 ML VIAL. ONE (15:00)
[2018-04-30] MEDS ORDERED: methylPREDNISolone ACETATE 40 MG/ML VIAL. ONE (15:00)
--- NOTE | 2018-04-30 15:05 | NUR ---
Pt received steroid inj to back per Dr Fofana. States she wants to wait to see how she feels in the am to decide on epidural in pain clinic. Appt is tenatively set for 1000 on 05/01.
[2018-04-30] MEDS: HYDROcodone/APAP 10/325 1 TAB TABLET PO PRN (16:36)
--- NOTE | 2018-04-30 16:38 | CONS ---
DATE OF CONSULTATION: 04/30/2018 REASON FOR CONSULTATION: Back pain. HISTORY OF PRESENT ILLNESS: The patient is a pleasant 68-year-old woman who reported that she has never had difficulties with significant back pain, but on 04/12 She developed lower back pain, which became more and more severe. She says that currently she has difficulty sitting for any length of time because of the development of severe pain and found that she must lay down virtually all of the time. The pain does not radiate into her lower extremities. She does not notice numbness or weakness in her lower extremities. She said that for a number of years, she has noticed if she stood for any length of time, she can develop a feeling of numbness in the lateral thighs. She has had no treatment for her lower back. A few years ago, she was told she does have scoliosis, but she has not had epidural steroids or physical therapy in the past. PAST MEDICAL HISTORY: Significant for obesity with a body mass index of 40. She also has problems with hypertension, asthma, degenerative arthritis, diverticulitis. Additionally, she has had problems with diverticular abscess. PAST SURGICAL HISTORY: Includes breast biopsy, cholecystectomy, knee replacement, tonsillectomy. ALLERGIES: SHE IS ALLERGIC TO PENICILLIN. SHE IS ALSO ALLERGIC TO AUGMENTIN, CODEINE, CLINDAMYCIN AND MORPHINE. MEDICATIONS: Reviewed on the MRAD. They are noncontributory. PERSONAL HISTORY: She is and lives with her . She does not smoke, drink alcohol or use drugs. She has been using a walker since the end of March when the symptoms became much more severe. REVIEW OF SYSTEMS: Twelve points was performed, it was negative other than outlined above. PHYSICAL EXAMINATION: GENERAL: She is pleasant, alert, cooperative, supine in bed. NEUROLOGIC: Her strength is 5/5 in upper and lower extremities bilaterally. On sensory examination, she was intact to light touch in the lower extremities bilaterally with hypoactive reflexes. Absent knee jerks. Negative straight leg raising except for back pain. There was full range of motion of the lower extremities bilaterally. She turned to the left side and on palpation of the lower lumbar spine, there was no significant tenderness. She did localize her pain to the very lower lumbar region. IMAGING: I reviewed a CT scan of the lumbar spine as well as an MRI scan. On those studies, there is significant scoliosis with stenosis, which is moderately severe at L4-5. At this point, with regard to evaluation, I think she is a poor surgical candidate and that she would require an instrumentation in addition to decompression, which would be problematic based on her body size. She has not had conservative measures. I think most appropriate for consideration at this point would be to have her seen by Rehab Medicine as well as the pain clinic. We will make those arrangements. XIOMARA GARCIA MD DR: ADINA/natalya JOB#: [id number] / [id number] JAQUELINE
--- NOTE | 2018-04-30 17:59 | CONS ---
DATE OF CONSULTATION: 04/30/2018 I saw her on 04/30/2018 at the request of Dr. Bardales for rehab evaluation. 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 She is with obesity, hypertension, asthmatic bronchitis, osteoarthritis, status post bilateral total knee arthroplasty done by Dr. Mustafa in the past without any problems, diverticulitis, VRE as well as E. coli, diverticular abscess, had placement of a drain done on 05/07/2017. The patient also had cholecystectomy, tonsillectomy, KNOWN ALLERGIC TO PENICILLIN, AUGMENTIN, CODEINE CAUSES RASH, CLINDAMYCIN. SHE IS ALLERGIC TO MORPHINE, NOT ALLERGY, MAINLY IT CAUSES GI DISCOMFORT. FAMILY HISTORY: Positive for carcinoma, coronary artery disease, diabetes mellitus, hypertension, cerebrovascular accident. The patient also had diabetes mellitus type 2. She lives with her in [facility], had three steps to enter the house, no steps inside the house. She has been independent with her mobility and self-care skills until her back problem started around 04/12/2018 without any specific injury. She is having difficulty to sit. She had to use a walker since the problem started. The patient denies any tingling or numbness in the extremities. She admits some constipation, but denies any difficulty with bladder control. The patient had MRI scan of her lumbar vertebrae done today, which revealed multilevel degenerative disk disease and degenerative joint disease of lumbar vertebrae with some degree of central spinal stenosis and neural foraminal compromise. PHYSICAL EXAMINATION: The patient on physical examination today revealed a middle-aged female. She is alert, oriented to time, place, person, and circumstance, follows commands appropriately, moves all 4 extremities voluntarily where she had 4+/5 grade muscle strength. Deep tendon reflexes are 1-2+ and symmetrical with absent ankle jerks. She had equal perception of touch and pinprick sensation bilaterally. She had tenderness to palpation over the right sacroiliac joint area and straight leg raising test is negative bilaterally. Her skin is intact at this time. She is independent with rolling from side to side. I have not tested her transfers or ambulation skills at present time. ASSESSMENT: A middle-aged female with degenerative disk disease and degenerative joint disease of lumbar vertebrae with some degree of central spinal and neural foraminal compromise without any clinical evidence of ongoing lumbar radiculopathy, diabetes mellitus, peripheral neuropathy, obesity, asthmatic bronchitis, hypertension, status post bilateral total knee arthroplasty. RECOMMENDATIONS: At her request, I have injected painful right sacroiliac joint area using Marcaine and Depo-Medrol solution under aseptic skin technique after skin preparation using alcohol swab and she tolerated the procedure satisfactorily without any side effects. To get her up as tolerated. Hopefully, home with outpatient followup when medically stable. Dr. Bardales, I appreciate asking me to participate in the care of this interesting patient. I will be glad to follow her with you as needed for her rehabilitation. SHEYLA SINGER MD DR: SRAVANI/natalya JOB#: [id number] / [id number]
[2018-04-30 19:00] VITALS: BP 107/51
[2018-04-30] MEDS: traZODone 50 MG TABLET. PO SCH (21:29)
[2018-04-30 23:00] VITALS: BP 108/45
[2018-05-01] MEDS: HYDROcodone/APAP 10/325 1 TAB TABLET PO PRN ×2 (00:44→12:13)
[2018-05-01 03:00] VITALS: BP 132/64
[2018-05-01 07:00] VITALS: BP 138/61
[2018-05-01] MEDS: PANTOPRAZOLE 40 MG TABLET.DR. PO SCH (07:06)
[2018-05-01] MEDS: NYSTATIN TOPICAL POWDER 15GM BOTTLE. TP SCH ×2 (09:00→21:00)
[2018-05-01] MEDS: ENOXAPARIN 40 MG/0.4 ML SYRINGE. SQ SCH (09:00)
[2018-05-01] MEDS: SERTRALINE 50 MG TABLET. PO SCH (09:03)
[2018-05-01] MEDS: clonazePAM 1 MG TABLET PO PRN ×2 (09:03→21:09)
[2018-05-01] MEDS: LOSARTAN POTASSIUM 50 MG TABLET. PO SCH (09:04)
[2018-05-01] MEDS: amLODIPine BESYLATE 5 MG TABLET PO SCH (09:05)
[2018-05-01] MEDS: MELOXICAM 7.5 MG TABLET PO SCH (09:05)
--- NOTE | 2018-05-01 09:07 | PDOC ---
PROGRESS NOTES Subjective Subjective She admits continued pain in her low back but got up and walked last evening after right sacroiliac joint injection and she is constipated. Objective Objective Vital Signs Date Time Temp Pulse Resp B/P (MAP) Pulse Ox O2 Delivery O2 Flow Rate FiO2 05/01/18 07:05 Room Air 05/01/18 07:00 98.1 47 18 138/61 (86) 99 98.1 Intake and Output 05/01/18 07:01 Intake Total 985 ml Balance 985 ml Intake Oral 985 ml # Voids 4 Physical Exam Physical Exam She is alert,supine in bed and no change noted with her neurological examination.She continues with painfully limited lumbar spine ROM. Plan Plan of Care She is planning to proceed with lumbar epidural steroid injection and hope it will ease her pain. Comment Review of Relevant I have reviewed the following items juju (where applicable) has been applied. Labs Laboratory Tests Test 04/29/18 12:46 04/29/18 13:30 04/29/18 16:44 04/29/18 19:51 Glucose (Fingerstick) 142 mg/dL (70-99) 138 mg/dL (70-99) 200 mg/dL (70-99) White Blood Count 6.3 x10^3/uL (4.0-11.0) Red Blood Count 4.09 x10^6/uL (3.50-5.40) Hemoglobin 10.4 g/dL (12.0-15.5) Hematocrit 31.5 % (36.0-47.0) Mean Corpuscular Volume 77 fL (79-100) Mean Corpuscular Hemoglobin 25 pg (25-35) Mean Corpuscular Hemoglobin Concent 33 g/dL (31-37) Red Cell Distribution Width 16.8 % (11.5-14.5) Platelet Count 232 x10^3/uL (140-400) Neutrophils (%) (Auto) 87 % (31-73) Lymphocytes (%) (Auto) 11 % (24-48) Monocytes (%) (Auto) 2 % (0-9) Eosinophils (%) (Auto) 0 % (0-3) Basophils (%) (Auto) 0 % (0-3) Neutrophils # (Auto) 5.4 x10^3uL (1.8-7.7) Lymphocytes # (Auto) 0.7 x10^3/uL (1.0-4.8) Monocytes # (Auto) 0.1 x10^3/uL (0.0-1.1) Eosinophils # (Auto) 0.0 x10^3/uL (0.0-0.7) Basophils # (Auto) 0.0 x10^3/uL (0.0-0.2) Segmented Neutrophils % 81 % (35-66) Band Neutrophils % 7 % (0-9) Lymphocytes % 12 % (24-48) Platelet Estimate Adequate (ADEQUATE) Poikilocytosis Slight Anisocytosis Slight Microcytosis Slight Ovalocytes Few Activated Partial Thromboplast Time 32 SEC (24-38) Sodium Level 142 mmol/L (136-145) Potassium Level 4.1 mmol/L (3.5-5.1) Chloride Level 103 mmol/L (98-107) Carbon Dioxide Level 29 mmol/L (21-32) Anion Gap 10 (6-14) Blood Urea Nitrogen 21 mg/dL (7-20) Creatinine 1.0 mg/dL (0.6-1.0) Estimated GFR (Cockcroft-Gault) 55.5 Glucose Level 154 mg/dL (70-99) Calcium Level 8.9 mg/dL (8.5-10.1) Test 04/30/18 07:20 04/30/18 11:38 04/30/18 16:57 04/30/18 18:40 Glucose (Fingerstick) 141 mg/dL (70-99) 101 mg/dL (70-99) 129 mg/dL (70-99) Creatine Kinase 25 U/L (26-192) Vitamin B12 Level 1122 pg/mL (247-911) Thyroid Stimulating Hormone (TSH) 0.577 uIU/mL (0.358-3.74) Test 04/30/18 20:51 05/01/18 07:33 Glucose (Fingerstick) 166 mg/dL (70-99) 96 mg/dL (70-99) Laboratory Tests Test 04/30/18 11:38 04/30/18 16:57 04/30/18 18:40 04/30/18 20:51 Glucose (Fingerstick) 101 mg/dL (70-99) 129 mg/dL (70-99) 166 mg/dL (70-99) Creatine Kinase 25 U/L (26-192) Vitamin B12 Level 1122 pg/mL (247-911) Thyroid Stimulating Hormone (TSH) 0.577 uIU/mL (0.358-3.74) Test 05/01/18 07:33 Glucose (Fingerstick) 96 mg/dL (70-99) Medications Current Medications Fentanyl Citrate (Fentanyl 2ml Vial) 50 mcg PRN Q3HRS PRN IV PAIN Last administered on 04/30/18 21:32; Start 04/29/18 at 13:15 Ondansetron HCl (Zofran) 4 mg PRN Q6HRS PRN IV NAUSEA/VOMITING Last administered on 04/30/18 10:15; Start 04/29/18 at 13:15 Gadobutrol (Gadavist) 10 mmol 1X ONCE IV ; Start 04/29/18 at 15:30; Stop at 15:31; Status DC Gadobutrol (Gadavist) 10 mmol 1X ONCE IV Last administered on 04/29/18at 15:21 ; Start 04/29/18 at 15:30; Stop 04/29/18 at 15:31; Status DC Amlodipine Besylate (Norvasc) 5 mg DAILY PO Last administered on 04/30/18 08: 44; Start 04/30/18 at 09:00 Clonazepam (KlonoPIN) 1 mg PRN TID PRN PO ANXIETY Last administered on 21:29; Start 04/29/18 at 18:30 Losartan Potassium (Cozaar) 50 mg DAILY PO Last administered on 04/30/18 08:44 ; Start 04/30/18 at 09:00 Sertraline HCl (Zoloft) 50 mg DAILY PO Last administered on 04/30/18 08:43; Start 04/30/18 at 09:00 Trazodone HCl (Desyrel) 50 mg QHS PO Last administered on 04/30/18 21:29; Start 04/29/18 at 21:00 Meloxicam (Mobic) 15 mg DAILY PO Last administered on 04/30/18 08:44; Start at 09:00 Pantoprazole Sodium (Protonix) 40 mg DAILYAC PO Last administered on 05/01/18 07:06; Start 04/30/18 at 07:30 Nystatin (Nystop) 1 seferino BID TP Last administered on 04/30/18at 08:45; Start at 21:00 Acetaminophen (Tylenol) 650 mg PRN Q6HRS PRN PO HEADACHE Last administered on at 10:14; Start 04/30/18 at 10:00 Enoxaparin Sodium (Lovenox 40mg Syringe) 40 mg DAILY SQ Last administered on at 12:13; Start 04/30/18 at 12:00 Albuterol Sulfate (Ventolin Neb Soln) 8.5 mg PRN Q6HRS PRN INH SHORTNESS OF BREATH; Start 04/30/18 at 11:30; Stop 04/30/18 at 12:21; Status DC Albuterol/ Ipratropium (Duoneb) 3 ml PRN QID PRN IH SHORTNESS OF BREATH; Start 04/30/18 at 11:30; Status UNV Albuterol Sulfate (Ventolin Neb Soln) 2.5 mg QID INH ; Start 05/01/18 at 17:00 Albuterol Sulfate (Ventolin Neb Soln) 2.5 mg PRN Q6HRS PRN INH SHORTNESS OF BREATH; Start 04/30/18 at 12:21; Stop 04/30/18 at 16:00; Status DC Methylprednisolone Acetate (DEPO-Medrol 40MG VIAL) 40 mg 1X ONCE IM ; Start at 14:45; Stop 04/30/18 at 14:46; Status DC Bupivacaine HCl (Sensorcaine-Mpf 0.25%) 10 ml 1X ONCE IJ ; Start 04/30/18 at 14 :45; Stop 04/30/18 at 14:46; Status DC Acetaminophen/ Hydrocodone Bitart (Lortab 10/325) 1 tab PRN Q6HRS PRN PO PAIN MODERATE TO SEVERE Last administered on 05/01/18at 00:44; Start 04/30/18 at 14:45 Active Scripts Active Reported Prilosec Otc (Omeprazole Magnesium) 20 Mg Tablet. 1 Tab PO DAILY Norvasc (Amlodipine Besylate) 5 Mg Tablet 1 Tab PO DAILY Losartan Potassium 50 Mg Tablet 50 Mg PO DAILY Meloxicam 15 Mg Tablet 1 Tab PO DAILY Trazodone Hcl 50 Mg Tablet 1 Tab PO QHS Sertraline Hcl 50 Mg Tablet 50 Mg PO DAILY Duoneb 0.5-3(2.5) Mg/3 Ml (Albuterol/Ipratropium) 3 Ml Ampul.neb 3 Ml IH PRN QID PRN Clonazepam 1 Mg Tablet 1 Tab PO PRN TID PRN Proair Hfa Inhaler (Albuterol Sulfate) 8.5 Gm Hfa.aer.ad 1 Puff INH PRN Q6HRS PRN Vitals/I & O Vital Sign - Last 24 Hours 04/30/18 04/30/18 04/30/18 04/30/18 11:00 15:00 16:36 19:00 Temp 97.7 97.8 98.2 97.7 97.8 98.2 Pulse 63 62 56 Resp 18 18 18 B/P (MAP) 147/84 (105) 129/97 (108) 107/51 (69) Pulse Ox 96 98 96 O2 Delivery Room Air Room Air Room Air Room Air 04/30/18 04/30/18 04/30/18 04/30/18 19:50 21:32 22:02 23:00 Temp 97.9 97.9 Pulse 57 Resp 20 18 18 B/P (MAP) 108/45 (66) Pulse Ox 96 O2 Delivery Room Air Room Air Room Air Room Air 05/01/18 05/01/18 05/01/18 05/01/18 00:44 01:44 03:00 07:00 Temp 97.7 98.1 97.7 98.1 Pulse 55 47 Resp 18 18 18 18 B/P (MAP) 132/64 (86) 138/61 (86) Pulse Ox 97 99 O2 Delivery Room Air Room Air Room Air 05/01/18 07:05 O2 Delivery Room Air Intake and Output 04/30/18 04/30/18 05/01/18 15:01 23:01 07:01 Intake Total 525 ml 460 ml Balance 525 ml 460 ml SHEYLA SINGER MD May 01, 2018 09:07
[2018-05-01] MEDS ORDERED: SENNOSIDES/DOCUSATE 8.6/50MG TABLET. PO PRN (09:15)
[2018-05-01] MEDS ORDERED: BISACODYL 5 MG TABLET.DR. PO PRN (09:15)
[2018-05-01] MEDS: fentaNYL PF VIAL 100 MCG/2 ML VIAL IV PRN ×2 (09:55→22:32)
--- NOTE | 2018-05-01 10:18 | PN ---
DATE: 05/01/2018 SUBJECTIVE: The patient is resting slightly propped up in bed, eating her breakfast comfortably, in no apparent distress. She said that Dr. Fofana injected her sore spot yesterday and she felt slightly better, was able to sit in the chair despite continuing pain. She was seen by Dr. Bardales, who recommended to start first the conservative measures and asked the pain clinic to arrange for the spinal epidural steroid injection as she would require an instrumentation in addition to decompression, which would be problematic based on her body size. OBJECTIVE: GENERAL: When I examined her this morning, she looked well and was clearly in no apparent respiratory distress. No pallor, jaundice, cyanosis or thyromegaly. No jugular venous distention. No lower limb edema. VITAL SIGNS: Her heart rate was 47, blood pressure was 138/61, temperature was 98.1, respiratory rate was 18 and oxygen saturation was 99%. The rest of the clinical examination was unremarkable, has not really changed. Her intake and output were incompletely recorded. LABORATORY DATA: Her lab work showed her blood sugar is well controlled. Her CK, vitamin B12 and TSH are all within normal range. ASSESSMENT AND PLAN: Significant scoliosis with stenosis, which is moderately severe at L4-L5. She has other medical problems including morbid obesity with a body mass index of 40, hypertension, bronchial asthma, degenerative joint disease and has had before history of diverticular abscess. The patient is scheduled for spinal epidural steroid injection at the pain clinic today. ALISHA ROSARIO MD DR: JASWINDER/natalya JOB#: [id number] / [id number]
--- NOTE | 2018-05-01 10:22 | NUR ---
SW following for discharge planning. Chart reviewed, discussed with RN. Pt is from home with and uses a walker at home. RN advised no SW needs at this time. SW will continue to follow.
[2018-05-01] MEDS ORDERED: methylPREDNISolone ACETATE 80 MG/ML VIAL. ONE (10:38)
[2018-05-01] MEDS ORDERED: methylPREDNISolone ACETATE 40 MG/ML VIAL. ONE (10:38)
[2018-05-01] MEDS ORDERED: IOHEXOL 180 MG/ML 10 ML VIAL. ONE (10:38)
[2018-05-01 11:00] VITALS: BP 90/63
--- NOTE | 2018-05-01 12:43 | PDOC ---
Infectious Disease Note Vital Sign Vital Signs Vital Signs Date Time Temp Pulse Resp B/P (MAP) Pulse Ox O2 Delivery O2 Flow Rate FiO2 05/01/18 12:13 Room Air 05/01/18 11:00 98.1 55 16 90/63 (72) 96 98.1 Labs Lab Laboratory Tests Test 04/30/18 16:57 04/30/18 18:40 04/30/18 20:51 05/01/18 07:33 Glucose (Fingerstick) 129 mg/dL (70-99) 166 mg/dL (70-99) 96 mg/dL (70-99) Creatine Kinase 25 U/L (26-192) Vitamin B12 Level 1122 pg/mL (247-911) Thyroid Stimulating Hormone (TSH) 0.577 uIU/mL (0.358-3.74) Test 05/01/18 11:16 Glucose (Fingerstick) 92 mg/dL (70-99) Objective Assessment Back pain Asymptomatic , abnormal urine Obesity h/o c diff Plan Plan of Care no need for antibiotics offered her to check u/a strait cath, pt is comfortable no need, she feels fine urinating without any problem VAZQUEZ GAMBLE MD May 01, 2018 12:43
--- NOTE | 2018-05-01 13:19 | CONS ---
DATE OF CONSULTATION: CONSULTING PHYSICIAN: Dr. Pearl. REASON FOR CONSULTATION: UTI. HISTORY OF PRESENT ILLNESS: This is a 68-year-old female who was transferred from [place]. The patient evidently is having severe back pain that started about 04/12 and just gotten worse as she could not do anything that is why she called ambulance and went to the hospital. Evidently, she has been getting treatment off and on last 3 or 4 times with UTI without any symptoms, and the primary care keep checking the urine and keep throwing some antibiotics at her. The patient denies any nausea, vomiting, diarrhea. Denies any incontinence other than occasionally she knows she has to pee, but because of the pain, she does not go to the bathroom, and she does have accidents at that time, but she is able to control and she knows when she has to urinate. The patient denies any nausea, vomiting, diarrhea. Denies any urinary symptoms, denies any fevers, chills, night sweats. PAST MEDICAL HISTORY: Positive for history of C. diff. The patient has obesity. The patient has "recurrent UTI." The patient had diverticulitis and diverticular abscess in the past. She has had knee replacement, cholecystectomy and breast biopsy. SOCIAL HISTORY: Negative for smoking, alcohol, illicit drug use. ALLERGIES: SHE IS LISTED ALLERGIC TO AUGMENTIN, CLINDAMYCIN. CURRENT MEDICATIONS: The patient is not on any antibiotics. The patient evidently received Cipro at [place]. REVIEW OF SYSTEMS: As per HPI, all other systems reviewed are negative. PHYSICAL EXAMINATION: GENERAL: Alert, oriented female, not in distress. VITAL SIGNS: Stable, afebrile. HEENT: NAD. NECK: Supple, no JVP, no lymphadenopathy. LUNGS: Clear. HEART: S1, S2 regular. ABDOMEN: Benign. EXTREMITIES: No edema, no cyanosis. SKIN: Unremarkable. The patient is neurologically intact. LABORATORY DATA: White count 6.3. BUN and creatinine are normal. CT scan of the spine showed degenerative joint disease, mild spinal stenosis. IMPRESSION: 1. Back pain. 2. Osteoarthritis. 3. Asymptomatic abnormal urinalysis, should not be treated. The patient does not have any symptoms. There is no urinary tract infection. She is at high risk for C. diff coming back. 4. Obesity. 5. Hypertension. RECOMMENDATIONS: No need for any antibiotics. Supportive care. I did offer her to check urine with straight catheterization if there is any question that she should have, and she is comfortable. She does not want straight catheterization. Thank you very much, Dr. Pearl, for giving me the opportunity to participate in this patient's care and a detailed education done to her about when to call UTI or not. VAZQUEZ GAMBLE MD DR: ESTHER/natalya JOB#: [id number] / [id number]
[2018-05-01] MEDS: GABAPENTIN 100 MG CAPSULE. PO SCH ×2 (14:27→21:09)
[2018-05-01 15:00] VITALS: BP 121/45
--- NOTE | 2018-05-01 15:13 | PDOC2 ---
NEUROLOGY CONSULT Date of Admission Date of Admission DATE: 05/01/18 TIME: 14:58 Reason for Consult Reason for Consult: IMPRESSION: NEUROLOGY CONSULTATION 04-30-18 Right LE numbness and tingling. Peripheral neuropathy. Chronic back pain. 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 DM. OA. Obesity. RECOMMENDATIONS/PLAN: Neurontin 100 mg tid. L-spine MRI, performed. Lab: see orders. Consulted NS. Weight reduction. OT/PT. HISTORY OF THE PRESENT ILLNESS: 68-y-old female patient with Hx of chronic back pain. She has increased pain in her lower back recently with symptoms of numbness and tingling in her right LE. Her left LE is fine. Her UE are not involved. No symptoms of urinary or bowel dysfunction. PAST MEDICAL HISTORY: Hypertension, bronchial asthma, generalized osteoarthritis, previous episode of diverticulitis, history of VRE as well as E. coli. Diverticular abscess and was admitted to [facility] on 05/07/2017 and underwent placement of a drain and the abscess, which showed the growth of Streptococcus anginosus as well as E. coli that was resistant to the quinolone. PAST SURGICAL HISTORY: Breast biopsy, cholecystectomy, total knee replacement, tonsillectomy and drainage with diverticular abscess. ALLERGIES: She is allergic to PENICILLIN, although she did tolerate amoxicillin. SHE IS ALSO ALLERGIC TO AUGMENTIN, CODEINE, CLINDAMYCIN, AND MORPHINE. FAMILY HISTORY: Cancer, coronary artery disease, diabetes, hypertension, and CVA. SOCIAL HISTORY: She is and lives with her . She does not smoke, drink alcohol or use recreational drugs. MEDICATIONS: Refer to MAR REVIEW OF SYSTEMS: Constitutional: Obesity. Head: No traumatic brain or head injury. Skin: No edema, or rash. Ear: No infection, tinnitus. Eyes: No vision loss or color blindness. Nose: No bleeding or purulent discharges. Hearing: No hearing decrease. Neck: No injury. Cardiac: No ND, arrhythmia. Pulmonary: No COPD. GI: No GI ulcer, GI bleeding. Urinary/genital: UTI. Endocrinologic: Diabetes Mellitus, obesity. Skeletomuscular: No muscular atrophy, deformity. Neurological: see HP. Psychiatric: Denies drug use/abuse. Otherwise, not [id number] review of systems. PHYSICAL EXAMINATION: General appearance is in chronic distress. HEENT: Normocephalic and nontraumatic. Eyes, nose, ears, and throat are unremarkable. Neck is supple. No lymphadenopathy. No crepitus. Cardiovascular: S1, S2, regular rate and rhythm. Pulmonary: Clear to auscultation bilaterally. Abdomen: Bowel sounds are positive. Abdomen is soft, nontender, and nondistended. Extremities: No rash, lesions, or edema. No restriction of range of motion NEUROLOGICAL EXAMINATION: Alert Oriented to time, place and person. PERRL. EOMI. CN: no focal findings. Muscle tone: within normal. Muscle strength: 4+ DTR: 1 due to obesity. Plantar reflex: Flexor response bilaterally Gait: not examined in bed. Sensory exam: no abnormal findings. No cerebellar signs elicited. F-T-N test accurate. Current Medications Current Medications Current Medications Fentanyl Citrate (Fentanyl 2ml Vial) 50 mcg PRN Q3HRS PRN IV PAIN Last administered on 05/01/18at 09:55; Start 04/29/18 at 13:15 Ondansetron HCl (Zofran) 4 mg PRN Q6HRS PRN IV NAUSEA/VOMITING Last administered on 04/30/18at 10:15; Start 04/29/18 at 13:15 Gadobutrol (Gadavist) 10 mmol 1X ONCE IV ; Start 04/29/18 at 15:30; Stop at 15:31; Status DC Gadobutrol (Gadavist) 10 mmol 1X ONCE IV Last administered on 04/29/18at 15:21 ; Start 04/29/18 at 15:30; Stop 04/29/18 at 15:31; Status DC Amlodipine Besylate (Norvasc) 5 mg DAILY PO Last administered on 05/01/18at 09: 05; Start 04/30/18 at 09:00 Clonazepam (KlonoPIN) 1 mg PRN TID PRN PO ANXIETY Last administered on 09:03; Start 04/29/18 at 18:30 Losartan Potassium (Cozaar) 50 mg DAILY PO Last administered on 05/01/18at 09:04 ; Start 04/30/18 at 09:00 Sertraline HCl (Zoloft) 50 mg DAILY PO Last administered on 05/01/18at 09:03; Start 04/30/18 at 09:00 Trazodone HCl (Desyrel) 50 mg QHS PO Last administered on 04/30/18at 21:29; Start 04/29/18 at 21:00 Meloxicam (Mobic) 15 mg DAILY PO Last administered on 05/01/18at 09:05; Start at 09:00 Pantoprazole Sodium (Protonix) 40 mg DAILYAC PO Last administered on 05/01/18at 07:06; Start 04/30/18 at 07:30 Nystatin (Nystop) 1 seferino BID TP Last administered on 04/30/18at 08:45; Start at 21:00 Acetaminophen (Tylenol) 650 mg PRN Q6HRS PRN PO HEADACHE Last administered on at 10:14; Start 04/30/18 at 10:00 Enoxaparin Sodium (Lovenox 40mg Syringe) 40 mg DAILY SQ Last administered on at 12:13; Start 04/30/18 at 12:00 Albuterol Sulfate (Ventolin Neb Soln) 8.5 mg PRN Q6HRS PRN INH SHORTNESS OF BREATH; Start 04/30/18 at 11:30; Stop 04/30/18 at 12:21; Status DC Albuterol/ Ipratropium (Duoneb) 3 ml PRN QID PRN IH SHORTNESS OF BREATH; Start 04/30/18 at 11:30; Status UNV Albuterol Sulfate (Ventolin Neb Soln) 2.5 mg QID INH ; Start 05/01/18 at 17:00 Albuterol Sulfate (Ventolin Neb Soln) 2.5 mg PRN Q6HRS PRN INH SHORTNESS OF BREATH; Start 04/30/18 at 12:21; Stop 04/30/18 at 16:00; Status DC Methylprednisolone Acetate (DEPO-Medrol 40MG VIAL) 40 mg 1X ONCE IM ; Start at 14:45; Stop 04/30/18 at 14:46; Status DC Bupivacaine HCl (Sensorcaine-Mpf 0.25%) 10 ml 1X ONCE IJ ; Start 04/30/18 at 14 :45; Stop 04/30/18 at 14:46; Status DC Acetaminophen/ Hydrocodone Bitart (Lortab 10/325) 1 tab PRN Q6HRS PRN PO PAIN MODERATE TO SEVERE Last administered on 05/01/18at 12:13; Start 04/30/18 at 14:45 Senna/Docusate Sodium (Senna Plus) 1 tab PRN BID PRN PO CONSTIPATION; Start at 09:15 Bisacodyl (Dulcolax Tab) 5 mg PRN DAILY PRN PO CONSTIPATION; Start 05/01/18 at 09:15 Methylprednisolone Acetate (DEPO-Medrol 40MG VIAL) 40 mg STK-MED ONCE .ROUTE ; Start 05/01/18 at 10:38; Stop 05/01/18 at 10:40; Status DC Iohexol (Omnipaque 180 Mg/ml) 10 ml STK-MED ONCE .ROUTE ; Start 05/01/18 at 10: 38; Stop 05/01/18 at 10:40; Status DC Methylprednisolone Acetate (DEPO-Medrol 80MG VIAL) 80 mg STK-MED ONCE .ROUTE ; Start 05/01/18 at 10:38; Stop 05/01/18 at 10:40; Status DC Gabapentin (Neurontin) 100 mg TID PO Last administered on 05/01/18at 14:27; Start 05/01/18 at 14:00 Bupivacaine HCl (Sensorcaine-Mpf 0.25%) 10 ml STK-MED ONCE .ROUTE ; Start at 15:00; Stop 05/01/18 at 14:24; Status DC Methylprednisolone Acetate (DEPO-Medrol 40MG VIAL) 40 mg STK-MED ONCE .ROUTE ; Start 04/30/18 at 15:00; Stop 05/01/18 at 14:24; Status DC Active Scripts Active Reported Prilosec Otc (Omeprazole Magnesium) 20 Mg Tablet.dr 1 Tab PO DAILY Norvasc (Amlodipine Besylate) 5 Mg Tablet 1 Tab PO DAILY Losartan Potassium 50 Mg Tablet 50 Mg PO DAILY Meloxicam 15 Mg Tablet 1 Tab PO DAILY Trazodone Hcl 50 Mg Tablet 1 Tab PO QHS Sertraline Hcl 50 Mg Tablet 50 Mg PO DAILY Duoneb 0.5-3(2.5) Mg/3 Ml (Albuterol/Ipratropium) 3 Ml Ampul.neb 3 Ml IH PRN QID PRN Clonazepam 1 Mg Tablet 1 Tab PO PRN TID PRN Proair Hfa Inhaler (Albuterol Sulfate) 8.5 Gm Hfa.aer.ad 1 Puff INH PRN Q6HRS PRN Allergies Allergies: Allergies Coded Allergies Type Severity Reaction Last Updated Verified Penicillins Allergy Intermediate 12/22/14 Yes clindamycin Allergy Intermediate 12/22/14 Yes codeine Adverse Reaction Intermediate Itching; 04/29/18 Yes morphine Adverse Reaction Mild nausea/vomiting 04/29/18 Yes ROS Review of System The patient denies any associated fevers, chills, headache, ear pain, rhinorrhea , sore throat, stiff neck, productive cough, chest pain, shortness of breath, back or flank pain, abdominal pain, nausea, vomiting, diarrhea, constipation, dysuria, rash, numbness, weakness, tingling, incontinence, difficulty ambulating, or diaphoresis. Physical Exam Physical Exam General: Well developed, well nourished, no acute distress, well appearing HEENT: Pupils equally round and reactive to light, EOMI, no discharge, normal conjunctiva Neck: Supple, no nuchal rigidity, no JVD, trachea midline, no tenderness Cardiac: RRR, no murmurs, no gallops, no rubs Chest/Lungs: CTAB, no wheeze, no rhonchi, no crackles Abdomen: soft, non-distended, no guarding, no peritoneal signs, non-tender Back: No tenderness Extremities: no edema, pulses intact, non-tender,capillary refill <3 sec bilateral upper and lower extremities, Neuro: Alert and oriented x 4, no focal deficits, normal speech Vitals Vitals: Vital Signs Date Time Temp Pulse Resp B/P (MAP) Pulse Ox O2 Delivery O2 Flow Rate FiO2 05/01/18 13:23 Room Air 05/01/18 11:00 98.1 55 16 90/63 (72) 96 98.1 Labs Labs Laboratory Tests Test 04/29/18 16:44 04/29/18 19:51 04/30/18 07:20 04/30/18 11:38 Glucose (Fingerstick) 138 mg/dL (70-99) 200 mg/dL (70-99) 141 mg/dL (70-99) 101 mg/dL (70-99) Test 04/30/18 16:57 04/30/18 18:40 04/30/18 20:51 05/01/18 07:33 Glucose (Fingerstick) 129 mg/dL (70-99) 166 mg/dL (70-99) 96 mg/dL (70-99) Creatine Kinase 25 U/L (26-192) Vitamin B12 Level 1122 pg/mL (247-911) Thyroid Stimulating Hormone (TSH) 0.577 uIU/mL (0.358-3.74) Test 05/01/18 11:16 Glucose (Fingerstick) 92 mg/dL (70-99) Laboratory Tests Test 04/30/18 16:57 04/30/18 18:40 04/30/18 20:51 05/01/18 07:33 Glucose (Fingerstick) 129 mg/dL (70-99) 166 mg/dL (70-99) 96 mg/dL (70-99) Creatine Kinase 25 U/L (26-192) Vitamin B12 Level 1122 pg/mL (247-911) Thyroid Stimulating Hormone (TSH) 0.577 uIU/mL (0.358-3.74) Test 05/01/18 11:16 Glucose (Fingerstick) 92 mg/dL (70-99) ANGIE SIM MD May 01, 2018 15:13
--- NOTE | 2018-05-01 15:14 | PDOC ---
PROGRESS NOTES Assessment Assessment Right LE numbness and tingling. Peripheral neuropathy. Chronic back pain. 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 DM. OA. Obesity. RECOMMENDATIONS/PLAN: Neurontin 100 mg tid. Consulted NS. Weight reduction. OT/PT. FU with NS. FU with PCP. FU with Neurology as needed. HISTORY OF THE PRESENT ILLNESS: 68-y-old female patient with Hx of chronic back pain. She has increased pain in her lower back recently with symptoms of numbness and tingling in her right LE. Her left LE is fine. Her UE are not involved. No symptoms of urinary or bowel dysfunction. PAST MEDICAL HISTORY: Hypertension, bronchial asthma, generalized osteoarthritis, previous episode of diverticulitis, history of VRE as well as E. coli. Diverticular abscess and was admitted to [facility] on 05/07/2017 and underwent placement of a drain and the abscess, which showed the growth of Streptococcus anginosus as well as E. coli that was resistant to the quinolone. PAST SURGICAL HISTORY: Breast biopsy, cholecystectomy, total knee replacement, tonsillectomy and drainage with diverticular abscess. ALLERGIES: She is allergic to PENICILLIN, although she did tolerate amoxicillin. SHE IS ALSO ALLERGIC TO AUGMENTIN, CODEINE, CLINDAMYCIN, AND MORPHINE. FAMILY HISTORY: Cancer, coronary artery disease, diabetes, hypertension, and CVA. SOCIAL HISTORY: She is and lives with her . She does not smoke, drink alcohol or use recreational drugs. MEDICATIONS: Refer to MAR REVIEW OF SYSTEMS: Constitutional: Obesity. Head: No traumatic brain or head injury. Skin: No edema, or rash. Ear: No infection, tinnitus. Eyes: No vision loss or color blindness. Nose: No bleeding or purulent discharges. Hearing: No hearing decrease. Neck: No injury. Cardiac: No MO, arrhythmia. Pulmonary: No COPD. GI: No GI ulcer, GI bleeding. Urinary/genital: UTI. Endocrinologic: Diabetes Mellitus, obesity. Skeletomuscular: No muscular atrophy, deformity. Neurological: see HP. Psychiatric: Denies drug use/abuse. Otherwise, not [id number] review of systems. PHYSICAL EXAMINATION: General appearance is in chronic distress. HEENT: Normocephalic and nontraumatic. Eyes, nose, ears, and throat are unremarkable. Neck is supple. No lymphadenopathy. No crepitus. Cardiovascular: S1, S2, regular rate and rhythm. Pulmonary: Clear to auscultation bilaterally. Abdomen: Bowel sounds are positive. Abdomen is soft, nontender, and nondistended. Extremities: No rash, lesions, or edema. No restriction of range of motion NEUROLOGICAL EXAMINATION: Alert Oriented to time, place and person. PERRL. EOMI. CN: no focal findings. Muscle tone: within normal. Muscle strength: 4+ DTR: 1 due to obesity. Plantar reflex: Flexor response bilaterally Gait: not examined in chair. Sensory exam: no abnormal findings. No cerebellar signs elicited. F-T-N test accurate. Objective Objective Vital Signs Date Time Temp Pulse Resp B/P (MAP) Pulse Ox O2 Delivery O2 Flow Rate FiO2 05/01/18 13:23 Room Air 05/01/18 11:00 98.1 55 16 90/63 (72) 96 98.1 Intake and Output 05/01/18 07:01 Intake Total 985 ml Balance 985 ml Intake Oral 985 ml # Voids 4 Vitals Signs Vitals VS - Last 72 Hours, by Label Date Time Temp Pulse Resp B/P (MAP) Pulse Ox O2 Delivery O2 Flow Rate FiO2 05/01/18 13:23 Room Air 05/01/18 12:13 Room Air 05/01/18 11:00 98.1 55 16 90/63 (72) 96 Room Air 98.1 05/01/18 09:55 Nasal Cannula 05/01/18 09:05 47 138/61 05/01/18 09:04 70 138/61 05/01/18 07:05 Room Air 05/01/18 07:00 98.1 47 18 138/61 (86) 99 Room Air 98.1 05/01/18 03:00 97.7 55 18 132/64 (86) 97 Room Air 97.7 05/01/18 01:44 18 05/01/18 00:44 18 04/30/18 23:00 97.9 57 18 108/45 (66) 96 Room Air 97.9 04/30/18 22:02 18 Room Air 04/30/18 21:32 20 Room Air 04/30/18 19:50 Room Air 04/30/18 19:00 98.2 56 18 107/51 (69) 96 Room Air 98.2 04/30/18 16:36 Room Air 04/30/18 15:00 97.8 62 18 129/97 (108) 98 Room Air 97.8 04/30/18 11:00 97.7 63 18 147/84 (105) 96 Room Air 97.7 04/30/18 08:45 Room Air 04/30/18 08:44 64 144/57 04/30/18 08:44 64 144/57 04/30/18 07:00 97.9 64 18 144/57 (86) 97 Room Air 97.9 04/30/18 07:00 Room Air Laboratory Laboratory Laboratory Tests Test 04/30/18 16:57 04/30/18 18:40 04/30/18 20:51 05/01/18 07:33 Glucose (Fingerstick) 129 mg/dL (70-99) 166 mg/dL (70-99) 96 mg/dL (70-99) Creatine Kinase 25 U/L (26-192) Vitamin B12 Level 1122 pg/mL (247-911) Thyroid Stimulating Hormone (TSH) 0.577 uIU/mL (0.358-3.74) Test 05/01/18 11:16 Glucose (Fingerstick) 92 mg/dL (70-99) Medication Medications Current Medications Albuterol Sulfate (Ventolin Neb Soln) 2.5 mg QID INH ; Start 05/01/18 at 17:00 Bisacodyl (Dulcolax Tab) 5 mg PRN DAILY PRN PO CONSTIPATION; Start 05/01/18 at 09:15 Gabapentin (Neurontin) 100 mg TID PO Last administered on 05/01/18at 14:27; Start 05/01/18 at 14:00 Iohexol (Omnipaque 180 Mg/ml) 10 ml STK-MED ONCE .ROUTE ; Start 05/01/18 at 10: 38; Stop 05/01/18 at 10:40; Status DC Methylprednisolone Acetate (DEPO-Medrol 40MG VIAL) 40 mg STK-MED ONCE .ROUTE ; Start 05/01/18 at 10:38; Stop 05/01/18 at 10:40; Status DC Methylprednisolone Acetate (DEPO-Medrol 80MG VIAL) 80 mg STK-MED ONCE .ROUTE ; Start 05/01/18 at 10:38; Stop 05/01/18 at 10:40; Status DC Senna/Docusate Sodium (Senna Plus) 1 tab PRN BID PRN PO CONSTIPATION; Start at 09:15 Comment Review of Relevant I have reviewed the following items juju (where applicable) has been applied. ANGIE SIM MD May 01, 2018 15:14
[2018-05-01] MEDS: ALBUTEROL SULFATE 2.5 MG/3 ML NEBU. INH SCH (17:00)
[2018-05-01 19:00] VITALS: BP 114/48
[2018-05-01] MEDS: traZODone 50 MG TABLET. PO SCH (21:09)
[2018-05-01 23:00] VITALS: BP 113/41
[2018-05-02 03:00] VITALS: BP 145/64
[2018-05-02 07:00] VITALS: BP 169/70
[2018-05-02] MEDS: ALBUTEROL SULFATE 2.5 MG/3 ML NEBU. INH SCH ×2 (08:36→11:45)
[2018-05-02] MEDS: NYSTATIN TOPICAL POWDER 15GM BOTTLE. TP SCH ×2 (09:00→21:00)
[2018-05-02] MEDS: GABAPENTIN 100 MG CAPSULE. PO SCH ×3 (09:29→20:47)
[2018-05-02] MEDS: ENOXAPARIN 40 MG/0.4 ML SYRINGE. SQ SCH (09:29)
[2018-05-02] MEDS: PANTOPRAZOLE 40 MG TABLET.DR. PO SCH (09:30)
[2018-05-02] MEDS: amLODIPine BESYLATE 5 MG TABLET PO SCH (09:30)
[2018-05-02] MEDS: MELOXICAM 7.5 MG TABLET PO SCH (09:30)
[2018-05-02] MEDS: LOSARTAN POTASSIUM 50 MG TABLET. PO SCH (09:31)
[2018-05-02] MEDS: SERTRALINE 50 MG TABLET. PO SCH (09:31)
[2018-05-02] MEDS: HYDROcodone/APAP 10/325 1 TAB TABLET PO PRN ×2 (09:32→20:52)
[2018-05-02] MEDS: DOCUSATE SODIUM 100 MG CAPSULE. PO SCH ×2 (09:32→20:47)
[2018-05-02] MEDS: POLYETHYLENE GLYCOL 3350 17 GM PACKET. PO SCH (09:33)
--- NOTE | 2018-05-02 09:51 | PDOC ---
PROGRESS NOTES Subjective Subjective She admits severe low back pain. Objective Objective Vital Signs Date Time Temp Pulse Resp B/P (MAP) Pulse Ox O2 Delivery O2 Flow Rate FiO2 05/02/18 09:32 20 Room Air 05/02/18 09:31 60 169/70 05/02/18 07:00 97.8 99 97.8 Intake and Output 05/02/18 07:01 Intake Total 295 ml Balance 295 ml Intake Oral 295 ml # Voids 2 Physical Exam Physical Exam She admits pain this AM after she felt good after lumbar epidural steroid injection. No change with her neurological status. She is moving both lower extremities actively but continues with pain limiting her bed mobility and transfers. Plan Plan of Care To see how she responds in the next few days and to get her up as tolerated. Comment Review of Relevant I have reviewed the following items juju (where applicable) has been applied. Labs Laboratory Tests Test 04/30/18 11:38 04/30/18 16:57 04/30/18 18:40 04/30/18 20:51 Glucose (Fingerstick) 101 mg/dL (70-99) 129 mg/dL (70-99) 166 mg/dL (70-99) Creatine Kinase 25 U/L (26-192) Vitamin B12 Level 1122 pg/mL (247-911) Thyroid Stimulating Hormone (TSH) 0.577 uIU/mL (0.358-3.74) Test 05/01/18 07:33 05/01/18 11:16 05/01/18 16:51 05/01/18 20:46 Glucose (Fingerstick) 96 mg/dL (70-99) 92 mg/dL (70-99) 115 mg/dL (70-99) 140 mg/dL (70-99) Test 05/02/18 07:17 Glucose (Fingerstick) 105 mg/dL (70-99) Laboratory Tests Test 05/01/18 11:16 05/01/18 16:51 05/01/18 20:46 05/02/18 07:17 Glucose (Fingerstick) 92 mg/dL (70-99) 115 mg/dL (70-99) 140 mg/dL (70-99) 105 mg/dL (70-99) Medications Current Medications Fentanyl Citrate (Fentanyl 2ml Vial) 50 mcg PRN Q3HRS PRN IV PAIN Last administered on 05/01/18 22:32; Start 04/29/18 at 13:15 Ondansetron HCl (Zofran) 4 mg PRN Q6HRS PRN IV NAUSEA/VOMITING Last administered on 04/30/18 10:15; Start 04/29/18 at 13:15 Gadobutrol (Gadavist) 10 mmol 1X ONCE IV ; Start 04/29/18 at 15:30; Stop at 15:31; Status DC Gadobutrol (Gadavist) 10 mmol 1X ONCE IV Last administered on 04/29/18at 15:21 ; Start 04/29/18 at 15:30; Stop 04/29/18 at 15:31; Status DC Amlodipine Besylate (Norvasc) 5 mg DAILY PO Last administered on 05/02/18 09: 30; Start 04/30/18 at 09:00 Clonazepam (KlonoPIN) 1 mg PRN TID PRN PO ANXIETY Last administered on 21:09; Start 04/29/18 at 18:30 Losartan Potassium (Cozaar) 50 mg DAILY PO Last administered on 05/02/18 09:31 ; Start 04/30/18 at 09:00 Sertraline HCl (Zoloft) 50 mg DAILY PO Last administered on 05/02/18 09:31; Start 04/30/18 at 09:00 Trazodone HCl (Desyrel) 50 mg QHS PO Last administered on 05/01/18at 21:09; Start 04/29/18 at 21:00 Meloxicam (Mobic) 15 mg DAILY PO Last administered on 05/02/18 09:30; Start at 09:00 Pantoprazole Sodium (Protonix) 40 mg DAILYAC PO Last administered on 05/02/18 09:30; Start 04/30/18 at 07:30 Nystatin (Nystop) 1 seferino BID TP Last administered on 04/30/18 08:45; Start at 21:00 Acetaminophen (Tylenol) 650 mg PRN Q6HRS PRN PO HEADACHE Last administered on 10:14; Start 04/30/18 at 10:00 Enoxaparin Sodium (Lovenox 40mg Syringe) 40 mg DAILY SQ Last administered on at 09:29; Start 04/30/18 at 12:00 Albuterol Sulfate (Ventolin Neb Soln) 8.5 mg PRN Q6HRS PRN INH SHORTNESS OF BREATH; Start 04/30/18 at 11:30; Stop 04/30/18 at 12:21; Status DC Albuterol/ Ipratropium (Duoneb) 3 ml PRN QID PRN IH SHORTNESS OF BREATH; Start 04/30/18 at 11:30; Status UNV Albuterol Sulfate (Ventolin Neb Soln) 2.5 mg QID INH ; Start 05/01/18 at 17:00 Albuterol Sulfate (Ventolin Neb Soln) 2.5 mg PRN Q6HRS PRN INH SHORTNESS OF BREATH; Start 04/30/18 at 12:21; Stop 04/30/18 at 16:00; Status DC Methylprednisolone Acetate (DEPO-Medrol 40MG VIAL) 40 mg 1X ONCE IM ; Start at 14:45; Stop 04/30/18 at 14:46; Status DC Bupivacaine HCl (Sensorcaine-Mpf 0.25%) 10 ml 1X ONCE IJ ; Start 04/30/18 at 14 :45; Stop 04/30/18 at 14:46; Status DC Acetaminophen/ Hydrocodone Bitart (Lortab 10/325) 1 tab PRN Q6HRS PRN PO PAIN MODERATE TO SEVERE Last administered on 05/01/18at 12:13; Start 04/30/18 at 14:45 ; Stop 05/02/18 at 09:01; Status DC Senna/Docusate Sodium (Senna Plus) 1 tab PRN BID PRN PO CONSTIPATION; Start at 09:15 Bisacodyl (Dulcolax Tab) 5 mg PRN DAILY PRN PO CONSTIPATION; Start 05/01/18 at 09:15 Methylprednisolone Acetate (DEPO-Medrol 40MG VIAL) 40 mg STK-MED ONCE .ROUTE ; Start 05/01/18 at 10:38; Stop 05/01/18 at 10:40; Status DC Iohexol (Omnipaque 180 Mg/ml) 10 ml STK-MED ONCE .ROUTE ; Start 05/01/18 at 10: 38; Stop 05/01/18 at 10:40; Status DC Methylprednisolone Acetate (DEPO-Medrol 80MG VIAL) 80 mg STK-MED ONCE .ROUTE ; Start 05/01/18 at 10:38; Stop 05/01/18 at 10:40; Status DC Gabapentin (Neurontin) 100 mg TID PO Last administered on 05/02/18at 09:29; Start 05/01/18 at 14:00 Bupivacaine HCl (Sensorcaine-Mpf 0.25%) 10 ml STK-MED ONCE .ROUTE ; Start at 15:00; Stop 05/01/18 at 14:24; Status DC Methylprednisolone Acetate (DEPO-Medrol 40MG VIAL) 40 mg STK-MED ONCE .ROUTE ; Start 04/30/18 at 15:00; Stop 05/01/18 at 14:24; Status DC Acetaminophen/ Hydrocodone Bitart (Lortab 10/325) 1 tab PRN Q4HRS PRN PO PAIN MODERATE TO SEVERE Last administered on 05/02/18at 09:32; Start 05/02/18 at 09:00 Docusate Sodium (Colace) 100 mg BID PO Last administered on 05/02/18at 09:32; Start 05/02/18 at 09:00 Polyethylene Glycol (miraLAX PACKET) 17 gm DAILY PO Last administered on at 09:33; Start 05/02/18 at 09:00 Active Scripts Active Reported Prilosec Otc (Omeprazole Magnesium) 20 Mg Tablet. 1 Tab PO DAILY Norvasc (Amlodipine Besylate) 5 Mg Tablet 1 Tab PO DAILY Losartan Potassium 50 Mg Tablet 50 Mg PO DAILY Meloxicam 15 Mg Tablet 1 Tab PO DAILY Trazodone Hcl 50 Mg Tablet 1 Tab PO QHS Sertraline Hcl 50 Mg Tablet 50 Mg PO DAILY Duoneb 0.5-3(2.5) Mg/3 Ml (Albuterol/Ipratropium) 3 Ml Ampul.neb 3 Ml IH PRN QID PRN Clonazepam 1 Mg Tablet 1 Tab PO PRN TID PRN Proair Hfa Inhaler (Albuterol Sulfate) 8.5 Gm Hfa.aer.ad 1 Puff INH PRN Q6HRS PRN Vitals/I & O Vital Sign - Last 24 Hours 1/18/19 1/18/19 1/18/19 1/18/19 09:55 11:00 12:13 13:23 Temp 98.1 98.1 Pulse 55 Resp 16 B/P (MAP) 90/63 (72) Pulse Ox 96 O2 Delivery Nasal Cannula Room Air Room Air Room Air 05/01/18 05/01/18 05/01/18 05/01/18 15:00 19:00 19:50 22:32 Temp 98.0 97.9 98.0 97.9 Pulse 57 63 Resp 18 18 18 B/P (MAP) 121/45 (70) 114/48 (70) Pulse Ox 96 97 O2 Delivery Room Air Room Air Room Air Room Air 05/01/18 05/01/18 05/02/18 05/02/18 23:00 23:02 03:00 07:00 Temp 97.8 97.7 97.8 97.8 97.7 97.8 Pulse 53 53 60 Resp 18 18 18 18 B/P (MAP) 113/41 (65) 145/64 (91) 169/70 (103) Pulse Ox 98 96 99 O2 Delivery Room Air Room Air Room Air Room Air 05/02/18 05/02/18 05/02/18 09:30 09:31 09:32 Pulse 60 60 Resp 20 B/P (MAP) 169/70 169/70 O2 Delivery Room Air Intake and Output 05/01/18 05/01/18 05/02/18 15:01 23:01 07:01 Intake Total 175 ml 120 ml Balance 175 ml 120 ml SHEYLA SINGER MD May 02, 2018 09:51
--- NOTE | 2018-05-02 10:14 | PN ---
DATE: 05/02/2018 SUBJECTIVE: The patient is resting slightly propped up in bed, in no apparent respiratory distress. She did very well yesterday after the epidural steroid injection, has been up and about, is able to walk and did very well. Unfortunately, her pain is back to square one this morning. PHYSICAL EXAMINATION: GENERAL: When I examined her, she looked pale, but no jaundice, cyanosis or thyromegaly. No jugular venous distention. No lymphedema. VITAL SIGNS: Her heart rate was 60, blood pressure 169/70, temperature was 97.8, respiratory rate was 18 and oxygen saturation was 99% on room air. HEAD, EYES, EARS, NOSE AND THROAT: Normocephalic, atraumatic. NECK: Supple. CARDIAC: Normal first and second heart sounds. NEUROLOGIC: She was awake, alert, responding appropriately. All cranial nerves intact. She moves extremities without difficulty. INS AND OUTS: Her intake and output were incompletely recorded. LABORATORY DATA: Showed blood sugar is well controlled. Her white cell count was 6300, hemoglobin 10, hematocrit 31, MCV 77, and platelet count 232,000. Her chemistry showed serum sodium 142, potassium 4.1, chloride 103, bicarbonate 29, anion gap of 10, BUN 21, creatinine 1. ASSESSMENT: 1. Severe low back pain with significant scoliosis and stenosis, which is moderately severe at L4-L5, did very well yesterday immediately after spinal epidural steroid injection. Unfortunately, she continues to have severe pain today. 2. She has multiple other medical problems including: A. Morbid obesity with a body mass index of 40. B. Hypertension. C. Bronchial asthma. D. Degenerative joint disease. E. History of diverticular abscess. PLAN: My plan is to increase her Lortab to every 4 hours. I started her on some Colace and MiraLax. We will consult Physical and Occupational Therapy to work with her with Pain Management, so that she can start working out and also to make sure that she does not get constipated I added Colace and MiraLax. ALISHA ROSARIO MD DR: JASWINDER/natalya JOB#: [id number] / [id number]
[2018-05-02 11:00] VITALS: BP 168/68
[2018-05-02 15:00] VITALS: BP 147/73
[2018-05-02] MEDS: ALBUTEROL SULFATE 2.5 MG/3 ML NEBU. NEB SCH ×2 (15:21→20:00)
[2018-05-02 19:20] VITALS: BP 124/44
[2018-05-02] MEDS: traZODone 50 MG TABLET. PO SCH (20:47)
[2018-05-02] MEDS: clonazePAM 1 MG TABLET PO PRN (20:52)
[2018-05-02 23:18] VITALS: BP 184/46
[2018-05-03 03:12] VITALS: BP 97/51
[2018-05-03] MEDS: HYDROcodone/APAP 10/325 1 TAB TABLET PO PRN ×2 (04:21→20:20)
[2018-05-03 05:05] LABS: HEMATOCRIT 28.7 % (36.0-47.0); HEMOGLOBIN 9.4 g/dL (12.0-15.5); RED BLOOD COUNT 3.72 x10^6/uL (3.50-5.40); RED CELL DISTRIBUTION WIDTH 17.2 % (11.5-14.5); WHITE BLOOD COUNT 5.1 x10^3/uL (4.0-11.0)
[2018-05-03 05:23] LABS: ALBUMIN 2.7 g/dL (3.4-5.0); ALBUMIN/GLOBULIN RATIO 0.8 (1.0-1.7); CALCIUM 8.7 mg/dL (8.5-10.1); GFR 55.5; POTASSIUM 5.1 mmol/L (3.5-5.1); TOTAL BILIRUBIN 0.4 mg/dL (0.2-1.0)
[2018-05-03 07:00] VITALS: BP 151/61
[2018-05-03] MEDS: ALBUTEROL SULFATE 2.5 MG/3 ML NEBU. NEB SCH (07:07)
[2018-05-03] MEDS: clonazePAM 1 MG TABLET PO PRN ×2 (08:20→20:22)
[2018-05-03] MEDS: POLYETHYLENE GLYCOL 3350 17 GM PACKET. PO SCH (08:21)
[2018-05-03] MEDS: ENOXAPARIN 40 MG/0.4 ML SYRINGE. SQ SCH (08:21)
[2018-05-03] MEDS: GABAPENTIN 100 MG CAPSULE. PO SCH ×3 (08:22→20:20)
[2018-05-03] MEDS: PANTOPRAZOLE 40 MG TABLET.DR. PO SCH (08:22)
[2018-05-03] MEDS: LOSARTAN POTASSIUM 50 MG TABLET. PO SCH (08:22)
[2018-05-03] MEDS: MELOXICAM 7.5 MG TABLET PO SCH (08:23)
[2018-05-03] MEDS: SERTRALINE 50 MG TABLET. PO SCH (08:23)
[2018-05-03] MEDS: amLODIPine BESYLATE 5 MG TABLET PO SCH (08:23)
[2018-05-03] MEDS: DOCUSATE SODIUM 100 MG CAPSULE. PO SCH ×2 (08:23→20:20)
[2018-05-03] MEDS: NYSTATIN TOPICAL POWDER 15GM BOTTLE. TP SCH ×2 (08:24→21:00)
--- NOTE | 2018-05-03 09:54 | PN ---
DATE: 05/03/2018 SUBJECTIVE: The patient is resting slightly propped up in bed, in no apparent respiratory distress. She is awake, alert. On questioning her, she had a great day yesterday throughout the day; however, at the end of the day she started having her pain again. When she tried to go to the bathroom at nighttime she had severe pain. PHYSICAL EXAMINATION: GENERAL: When I examined her today, she looked well and was clearly in no apparent respiratory distress. No pallor, jaundice, cyanosis, or thyromegaly. No jugular venous distension. No lymphedema. VITAL SIGNS: Her heart rate was 56, blood pressure 151/61, temperature was 97.5, respiratory rate was 18 and oxygen saturation was 96%. The rest of clinical examination is stable, has not really changed. Her intake over the last 24 hours was incompletely recorded. LABORATORY DATA: As of this morning showed a white cell count 5100, hemoglobin 9.4, hematocrit 28.7, MCV 77 and platelet count 229,000. Her chemistry showed a serum sodium 137, potassium 5.1, chloride 102, bicarbonate 30, anion gap of 5, BUN is 41, creatinine 1, her estimated GFR was 55 mL per minute, her glucose 159, calcium was 8.7. Total bilirubin, AST, ALT, alkaline phosphatase were normal. Total protein 6, albumin was 2.7. ASSESSMENT: 1. Severe low back pain and significant scoliosis and stenosis, which is moderate to severe at L4-L5. She did very well yesterday, walked around and sat in the chair for almost 2 hours. Unfortunately, the pain came back again at nighttime. 2. She has multiple other medical problems including: A. Morbid obesity with body mass index of 40. B. Hypertension. C. Bronchial asthma. D. Degenerative joint disease. E. History of diverticular abscess. PLAN: To continue with Lortab. Continue with physical and occupational therapy. Hopefully, tomorrow if she feels much better, she can be discharged home. ALISHA ROSARIO MD DR: JASWINDER/natalya JOB#: [id number] / [id number]
[2018-05-03 10:49] VITALS: BP 128/59
[2018-05-03 14:53] VITALS: BP 118/58
[2018-05-03] MEDS: traZODone 50 MG TABLET. PO SCH (20:20)
[2018-05-03 23:22] VITALS: BP 91/41
[2018-05-04 03:05] VITALS: BP 116/45
[2018-05-04 07:00] VITALS: BP 149/64
[2018-05-04] MEDS: ALBUTEROL SULFATE 2.5 MG/3 ML NEBU. NEB SCH ×2 (07:04→11:30)
--- NOTE | 2018-05-04 08:54 | PDOC ---
PROGRESS NOTES Subjective Subjective She feels better. Objective Objective Vital Signs Date Time Temp Pulse Resp B/P (MAP) Pulse Ox O2 Delivery O2 Flow Rate FiO2 05/04/18 07:00 97.5 51 18 149/64 (92) 94 Room Air 97.5 Intake and Output 05/04/18 07:01 Intake Total 1620 ml Output Total 300 ml Balance 1320 ml Intake Oral 1620 ml Output Urine Total 300 ml # Voids 4 Physical Exam Physical Exam She is supine in bed and comfortable and she did walk in hallway yesterday. Plan Plan of Custodial today with out patient follow up and I have reviewed with her home exercise program. Comment Review of Relevant I have reviewed the following items juju (where applicable) has been applied. Labs Laboratory Tests Test 05/02/18 11:35 05/02/18 16:46 05/02/18 20:55 05/03/18 03:50 Glucose (Fingerstick) 69 mg/dL (70-99) 103 mg/dL (70-99) 93 mg/dL (70-99) White Blood Count 5.1 x10^3/uL (4.0-11.0) Red Blood Count 3.72 x10^6/uL (3.50-5.40) Hemoglobin 9.4 g/dL (12.0-15.5) Hematocrit 28.7 % (36.0-47.0) Mean Corpuscular Volume 77 fL (79-100) Mean Corpuscular Hemoglobin 25 pg (25-35) Mean Corpuscular Hemoglobin Concent 33 g/dL (31-37) Red Cell Distribution Width 17.2 % (11.5-14.5) Platelet Count 229 x10^3/uL (140-400) Sodium Level 137 mmol/L (136-145) Potassium Level 5.1 mmol/L (3.5-5.1) Chloride Level 102 mmol/L (98-107) Carbon Dioxide Level 30 mmol/L (21-32) Anion Gap 5 (6-14) Blood Urea Nitrogen 41 mg/dL (7-20) Creatinine 1.0 mg/dL (0.6-1.0) Estimated GFR (Cockcroft-Gault) 55.5 BUN/Creatinine Ratio 41 (6-20) Glucose Level 129 mg/dL (70-99) Calcium Level 8.7 mg/dL (8.5-10.1) Total Bilirubin 0.4 mg/dL (0.2-1.0) Aspartate Amino Transf (AST/SGOT) 7 U/L (15-37) Alanine Aminotransferase (ALT/SGPT) 13 U/L (14-59) Alkaline Phosphatase 87 U/L (46-116) Total Protein 6.0 g/dL (6.4-8.2) Albumin 2.7 g/dL (3.4-5.0) Albumin/Globulin Ratio 0.8 (1.0-1.7) Test 05/03/18 07:06 05/03/18 11:06 05/03/18 16:18 05/03/18 21:22 Glucose (Fingerstick) 99 mg/dL (70-99) 84 mg/dL (70-99) 128 mg/dL (70-99) 111 mg/dL (70-99) Test 05/04/18 08:02 Glucose (Fingerstick) 92 mg/dL (70-99) Laboratory Tests Test 05/03/18 11:06 05/03/18 16:18 05/03/18 21:22 05/04/18 08:02 Glucose (Fingerstick) 84 mg/dL (70-99) 128 mg/dL (70-99) 111 mg/dL (70-99) 92 mg/dL (70-99) Medications Current Medications Fentanyl Citrate (Fentanyl 2ml Vial) 50 mcg PRN Q3HRS PRN IV PAIN Last administered on 05/01/18at 22:32; Start 04/29/18 at 13:15 Ondansetron HCl (Zofran) 4 mg PRN Q6HRS PRN IV NAUSEA/VOMITING Last administered on 04/30/18at 10:15; Start 04/29/18 at 13:15 Gadobutrol (Gadavist) 10 mmol 1X ONCE IV ; Start 04/29/18 at 15:30; Stop at 15:31; Status DC Gadobutrol (Gadavist) 10 mmol 1X ONCE IV Last administered on 04/29/18at 15:21 ; Start 04/29/18 at 15:30; Stop 04/29/18 at 15:31; Status DC Amlodipine Besylate (Norvasc) 5 mg DAILY PO Last administered on 05/03/18at 08: 23; Start 04/30/18 at 09:00 Clonazepam (KlonoPIN) 1 mg PRN TID PRN PO ANXIETY Last administered on 20:22; Start 04/29/18 at 18:30 Losartan Potassium (Cozaar) 50 mg DAILY PO Last administered on 05/03/18at 08:22 ; Start 04/30/18 at 09:00 Sertraline HCl (Zoloft) 50 mg DAILY PO Last administered on 05/03/18at 08:23; Start 04/30/18 at 09:00 Trazodone HCl (Desyrel) 50 mg QHS PO Last administered on 05/03/18at 20:20; Start 04/29/18 at 21:00 Meloxicam (Mobic) 15 mg DAILY PO Last administered on 05/03/18 08:23; Start at 09:00 Pantoprazole Sodium (Protonix) 40 mg DAILYAC PO Last administered on 05/03/18 08:22; Start 04/30/18 at 07:30 Nystatin (Nystop) 1 seferino BID TP Last administered on 04/30/18at 08:45; Start at 21:00 Acetaminophen (Tylenol) 650 mg PRN Q6HRS PRN PO HEADACHE Last administered on at 10:14; Start 04/30/18 at 10:00 Enoxaparin Sodium (Lovenox 40mg Syringe) 40 mg DAILY SQ Last administered on at 08:21; Start 04/30/18 at 12:00 Albuterol Sulfate (Ventolin Neb Soln) 8.5 mg PRN Q6HRS PRN INH SHORTNESS OF BREATH; Start 04/30/18 at 11:30; Stop 04/30/18 at 12:21; Status DC Albuterol/ Ipratropium (Duoneb) 3 ml PRN QID PRN IH SHORTNESS OF BREATH; Start 04/30/18 at 11:30; Status UNV Albuterol Sulfate (Ventolin Neb Soln) 2.5 mg QID INH ; Start 05/01/18 at 17:00; Stop 05/02/18 at 12:01; Status DC Albuterol Sulfate (Ventolin Neb Soln) 2.5 mg PRN Q6HRS PRN INH SHORTNESS OF BREATH; Start 04/30/18 at 12:21; Stop 04/30/18 at 16:00; Status DC Methylprednisolone Acetate (DEPO-Medrol 40MG VIAL) 40 mg 1X ONCE IM ; Start at 14:45; Stop 04/30/18 at 14:46; Status DC Bupivacaine HCl (Sensorcaine-Mpf 0.25%) 10 ml 1X ONCE IJ ; Start 04/30/18 at 14 :45; Stop 04/30/18 at 14:46; Status DC Acetaminophen/ Hydrocodone Bitart (Lortab 10325) 1 tab PRN Q6HRS PRN PO PAIN MODERATE TO SEVERE Last administered on 05/01/18at 12:13; Start 04/30/18 at 14:45 ; Stop 05/02/18 at 09:01; Status DC Senna/Docusate Sodium (Senna Plus) 1 tab PRN BID PRN PO CONSTIPATION, 1sT CHOICE Last administered on 05/03/18at 16:40; Start 05/01/18 at 09:15 Bisacodyl (Dulcolax Tab) 5 mg PRN DAILY PRN PO CONSTIPATION, 2nd CHOICE; Start 05/01/18 at 09:15 Methylprednisolone Acetate (DEPO-Medrol 40MG VIAL) 40 mg STK-MED ONCE .ROUTE ; Start 05/01/18 at 10:38; Stop 05/01/18 at 10:40; Status DC Iohexol (Omnipaque 180 Mg/ml) 10 ml STK-MED ONCE .ROUTE ; Start 05/01/18 at 10: 38; Stop 05/01/18 at 10:40; Status DC Methylprednisolone Acetate (DEPO-Medrol 80MG VIAL) 80 mg STK-MED ONCE .ROUTE ; Start 05/01/18 at 10:38; Stop 05/01/18 at 10:40; Status DC Gabapentin (Neurontin) 100 mg TID PO Last administered on 05/03/18at 20:20; Start 05/01/18 at 14:00 Bupivacaine HCl (Sensorcaine-Mpf 0.25%) 10 ml STK-MED ONCE .ROUTE ; Start at 15:00; Stop 05/01/18 at 14:24; Status DC Methylprednisolone Acetate (DEPO-Medrol 40MG VIAL) 40 mg STK-MED ONCE .ROUTE ; Start 04/30/18 at 15:00; Stop 05/01/18 at 14:24; Status DC Acetaminophen/ Hydrocodone Bitart (Lortab 10/325) 1 tab PRN Q4HRS PRN PO PAIN MODERATE TO SEVERE Last administered on 05/03/18at 20:20; Start 05/02/18 at 09:00 Docusate Sodium (Colace) 100 mg BID PO Last administered on 05/03/18at 20:20; Start 05/02/18 at 09:00 Polyethylene Glycol (miraLAX PACKET) 17 gm DAILY PO Last administered on at 08:21; Start 05/02/18 at 09:00 Albuterol Sulfate (Ventolin Neb Soln) 2.5 mg RTQID NEB ; Start 05/02/18 at 16:00 Active Scripts Active Reported Prilosec Otc (Omeprazole Magnesium) 20 Mg Tablet.dr 1 Tab PO DAILY Norvasc (Amlodipine Besylate) 5 Mg Tablet 1 Tab PO DAILY Losartan Potassium 50 Mg Tablet 50 Mg PO DAILY Meloxicam 15 Mg Tablet 1 Tab PO DAILY Trazodone Hcl 50 Mg Tablet 1 Tab PO QHS Sertraline Hcl 50 Mg Tablet 50 Mg PO DAILY Duoneb 0.5-3(2.5) Mg/3 Ml (Albuterol/Ipratropium) 3 Ml Ampul.neb 3 Ml IH PRN QID PRN Clonazepam 1 Mg Tablet 1 Tab PO PRN TID PRN Proair Hfa Inhaler (Albuterol Sulfate) 8.5 Gm Hfa.aer.ad 1 Puff INH PRN Q6HRS PRN Vitals/I & O Vital Sign - Last 24 Hours 05/03/18 05/03/18 05/03/18 05/03/18 10:49 14:53 19:55 20:20 Temp 97.7 97.7 97.7 97.7 Pulse 65 59 Resp 18 18 20 B/P (MAP) 128/59 (82) 118/58 (78) Pulse Ox 97 98 O2 Delivery Room Air Room Air Room Air Room Air 05/03/18 05/03/18 05/04/18 05/04/18 21:20 23:22 03:05 07:00 Temp 97.9 98.0 97.5 97.9 98.0 97.5 Pulse 63 59 51 Resp 20 18 18 18 B/P (MAP) 91/41 (58) 116/45 (68) 149/64 (92) Pulse Ox 97 97 94 O2 Delivery Room Air Room Air Room Air Room Air Intake and Output 05/03/18 05/03/18 05/04/18 15:01 23:01 07:01 Intake Total 600 ml 540 ml 480 ml Output Total 300 ml Balance 300 ml 540 ml 480 ml SHEYLA SINGER MD May 04, 2018 08:54
[2018-05-04] MEDS: DOCUSATE SODIUM 100 MG CAPSULE. PO SCH (09:00)
[2018-05-04] MEDS: POLYETHYLENE GLYCOL 3350 17 GM PACKET. PO SCH (09:00)
[2018-05-04] MEDS: NYSTATIN TOPICAL POWDER 15GM BOTTLE. TP SCH (09:00)
[2018-05-04] MEDS: amLODIPine BESYLATE 5 MG TABLET PO SCH (09:11)
[2018-05-04] MEDS: LOSARTAN POTASSIUM 50 MG TABLET. PO SCH (09:11)
[2018-05-04] MEDS: MELOXICAM 7.5 MG TABLET PO SCH (09:12)
[2018-05-04] MEDS: PANTOPRAZOLE 40 MG TABLET.DR. PO SCH (09:12)
[2018-05-04] MEDS: SERTRALINE 50 MG TABLET. PO SCH (09:12)
[2018-05-04] MEDS: GABAPENTIN 100 MG CAPSULE. PO SCH (09:12)
[2018-05-04] MEDS: ENOXAPARIN 40 MG/0.4 ML SYRINGE. SQ SCH (09:13)
[2018-05-04] MEDS: clonazePAM 1 MG TABLET PO PRN (09:16)
[2018-05-04] MEDS ORDERED: HYDR-2769 PO (09:37)
[2018-05-04] MEDS ORDERED: GABA-585 PO (09:37)
--- NOTE | 2018-05-04 10:06 | DS ---
DATE OF DISCHARGE: 05/04/2018 HOSPITAL COURSE: The patient is a 68-year-old female patient who came with severe intractable low back pain, for which we have consulted Dr. Bardales who did not recommend any surgical intervention. She was seen by Dr. Fofana who injected her sacroiliac joint, and she was seen by Dr. Keo Bedoya, who did a spinal epidural steroid injection, and she did very well. She is now up and about, walking without any difficulty. She felt that the Neurontin actually helped her more than the meloxicam, and the plan was to discharge her home to continue on her hydrocodone as well as Neurontin, to follow with the pain management clinic as an outpatient. PHYSICAL EXAMINATION: GENERAL: When I examined her today, she was resting slightly propped up in bed, in no apparent respiratory distress. No pallor, jaundice, cyanosis or thyromegaly. No jugular venous distension. No lower limb edema. VITAL SIGNS: Her heart rate was 51, blood pressure 149/64, temperature was 97.5, respiratory rate was 18 and oxygen saturation was 94%. The rest of clinical examination is unremarkable has not changed. She has been up and about ambulating without assistance or assistive devices. LABORATORY DATA: Showed that her blood sugar has been well controlled. Her most recent lab work available showed her serum sodium was around 137, potassium 5.1, chloride 102, bicarbonate 30, anion gap of 5, BUN 41, creatinine 1, estimated GFR was 55 mL per minute. Her glucose 129, calcium was 8.7. Total bilirubin, AST, ALT, alkaline phosphatase were normal. Total protein 6.6 g/dL and albumin was 2.7. Her most recent lab work as of yesterday showed a white cell count 5000, hemoglobin 9.4, hematocrit 28.7, MCV 77 and platelet count of 229,000. DISCHARGE MEDICATIONS: She was discharged home to continue on gabapentin 100 mg 3 times a day, hydrocodone/APAP 10/325 one tablet every 4 hours as needed, amlodipine for Norvasc 5 mg once a day, clonazepam 1 mg 3 times a day as needed for anxiety, ipratropium bromide, albuterol sulfate in 3 mL by nebulizer 4 times a day. Losartan potassium 50 mg once a day, omeprazole for Prilosec 20 mg daily, sertraline 50 mg daily and trazodone 50 mg at bedtime. FINAL DISCHARGE DIAGNOSES: 1. Severe low back pain and significant scoliosis and stenosis, which is moderate to severe at L4-L5. She did very well with the spinal epidural steroid injection. 2. The patient has multiple other medical problems including morbid obesity with a body mass index of 40, hypertension, bronchial asthma, degenerative joint disease, history of diverticular abscess. ALISHA ROSARIO MD DR: JASWINDER/natalya JOB#: [id number] / [id number]
--- NOTE | 2018-05-04 10:43 | NUR ---
SW following for discharge planning. Discussed with RN, discussed with Dr. Pearl. Per Dr. Pearl, pt is feeling much better and will be discharging home today with . No further SW needs.
--- NOTE | 2018-05-04 10:46 | PDOC ---
PROGRESS NOTES Assessment Right LE numbness and tingling, lumbar radiculopathy, patient feeling better. Chronic back pain. 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 DM. OA. Obesity. Plan Neurontin 100 mg tid. Neurosurgery and physiatry consults noted Weight reduction. OT/PT. FU with NS and physiatry FU with Neurology as needed. Home with outpatient rehab Subjective I feel much better, I want to go home Objective Vital Signs Date Time Temp Pulse Resp B/P (MAP) Pulse Ox O2 Delivery O2 Flow Rate FiO2 05/04/18 09:11 51 149/64 05/04/18 07:00 97.5 18 94 Room Air 97.5 Intake and Output 05/04/18 07:01 Intake Total 1620 ml Output Total 300 ml Balance 1320 ml Intake Oral 1620 ml Output Urine Total 300 ml # Voids 4 PHYSICAL EXAM Alert. Oriented to time, place and person. PERRL. EOMI. CN: no focal findings. Muscle tone: normal. Muscle strength: 4+/5 DTR: 1+ Plantar reflex: flexor Gait: not examined in bed. Sensory exam: patchy loss in right leg. No cerebellar signs elicited. Review of Relevant I have reviewed the following items juju (where applicable) has been applied. Labs Laboratory Tests Test 05/02/18 11:35 05/02/18 16:46 05/02/18 20:55 05/03/18 03:50 Glucose (Fingerstick) 69 mg/dL (70-99) 103 mg/dL (70-99) 93 mg/dL (70-99) White Blood Count 5.1 x10^3/uL (4.0-11.0) Red Blood Count 3.72 x10^6/uL (3.50-5.40) Hemoglobin 9.4 g/dL (12.0-15.5) Hematocrit 28.7 % (36.0-47.0) Mean Corpuscular Volume 77 fL (79-100) Mean Corpuscular Hemoglobin 25 pg (25-35) Mean Corpuscular Hemoglobin Concent 33 g/dL (31-37) Red Cell Distribution Width 17.2 % (11.5-14.5) Platelet Count 229 x10^3/uL (140-400) Sodium Level 137 mmol/L (136-145) Potassium Level 5.1 mmol/L (3.5-5.1) Chloride Level 102 mmol/L (98-107) Carbon Dioxide Level 30 mmol/L (21-32) Anion Gap 5 (6-14) Blood Urea Nitrogen 41 mg/dL (7-20) Creatinine 1.0 mg/dL (0.6-1.0) Estimated GFR (Cockcroft-Gault) 55.5 BUN/Creatinine Ratio 41 (6-20) Glucose Level 129 mg/dL (70-99) Calcium Level 8.7 mg/dL (8.5-10.1) Total Bilirubin 0.4 mg/dL (0.2-1.0) Aspartate Amino Transf (AST/SGOT) 7 U/L (15-37) Alanine Aminotransferase (ALT/SGPT) 13 U/L (14-59) Alkaline Phosphatase 87 U/L (46-116) Total Protein 6.0 g/dL (6.4-8.2) Albumin 2.7 g/dL (3.4-5.0) Albumin/Globulin Ratio 0.8 (1.0-1.7) Test 05/03/18 07:06 05/03/18 11:06 05/03/18 16:18 05/03/18 21:22 Glucose (Fingerstick) 99 mg/dL (70-99) 84 mg/dL (70-99) 128 mg/dL (70-99) 111 mg/dL (70-99) Test 05/04/18 08:02 Glucose (Fingerstick) 92 mg/dL (70-99) Laboratory Tests Test 05/03/18 11:06 05/03/18 16:18 05/03/18 21:22 05/04/18 08:02 Glucose (Fingerstick) 84 mg/dL (70-99) 128 mg/dL (70-99) 111 mg/dL (70-99) 92 mg/dL (70-99) Medications Current Medications Fentanyl Citrate (Fentanyl 2ml Vial) 50 mcg PRN Q3HRS PRN IV PAIN Last administered on 05/01/18at 22:32; Start 04/29/18 at 13:15 Ondansetron HCl (Zofran) 4 mg PRN Q6HRS PRN IV NAUSEA/VOMITING Last administered on 04/30/18at 10:15; Start 04/29/18 at 13:15 Gadobutrol (Gadavist) 10 mmol 1X ONCE IV ; Start 04/29/18 at 15:30; Stop at 15:31; Status DC Gadobutrol (Gadavist) 10 mmol 1X ONCE IV Last administered on 04/29/18at 15:21 ; Start 04/29/18 at 15:30; Stop 04/29/18 at 15:31; Status DC Amlodipine Besylate (Norvasc) 5 mg DAILY PO Last administered on 05/04/18at 09: 11; Start 04/30/18 at 09:00 Clonazepam (KlonoPIN) 1 mg PRN TID PRN PO ANXIETY Last administered on 09:16; Start 04/29/18 at 18:30 Losartan Potassium (Cozaar) 50 mg DAILY PO Last administered on 05/04/18at 09:11 ; Start 04/30/18 at 09:00 Sertraline HCl (Zoloft) 50 mg DAILY PO Last administered on 05/04/18at 09:12; Start 04/30/18 at 09:00 Trazodone HCl (Desyrel) 50 mg QHS PO Last administered on 05/03/18at 20:20; Start 04/29/18 at 21:00 Meloxicam (Mobic) 15 mg DAILY PO Last administered on 05/04/18at 09:12; Start at 09:00 Pantoprazole Sodium (Protonix) 40 mg DAILYAC PO Last administered on 05/04/18at 09:12; Start 04/30/18 at 07:30 Nystatin (Nystop) 1 seferino BID TP Last administered on 04/30/18at 08:45; Start at 21:00 Acetaminophen (Tylenol) 650 mg PRN Q6HRS PRN PO HEADACHE Last administered on at 10:14; Start 04/30/18 at 10:00 Enoxaparin Sodium (Lovenox 40mg Syringe) 40 mg DAILY SQ Last administered on at 09:13; Start 04/30/18 at 12:00 Albuterol Sulfate (Ventolin Neb Soln) 8.5 mg PRN Q6HRS PRN INH SHORTNESS OF BREATH; Start 04/30/18 at 11:30; Stop 04/30/18 at 12:21; Status DC Albuterol/ Ipratropium (Duoneb) 3 ml PRN QID PRN IH SHORTNESS OF BREATH; Start 04/30/18 at 11:30; Status UNV Albuterol Sulfate (Ventolin Neb Soln) 2.5 mg QID INH ; Start 05/01/18 at 17:00; Stop 05/02/18 at 12:01; Status DC Albuterol Sulfate (Ventolin Neb Soln) 2.5 mg PRN Q6HRS PRN INH SHORTNESS OF BREATH; Start 04/30/18 at 12:21; Stop 04/30/18 at 16:00; Status DC Methylprednisolone Acetate (DEPO-Medrol 40MG VIAL) 40 mg 1X ONCE IM ; Start at 14:45; Stop 04/30/18 at 14:46; Status DC Bupivacaine HCl (Sensorcaine-Mpf 0.25%) 10 ml 1X ONCE IJ ; Start 04/30/18 at 14 :45; Stop 04/30/18 at 14:46; Status DC Acetaminophen/ Hydrocodone Bitart (Lortab 10/325) 1 tab PRN Q6HRS PRN PO PAIN MODERATE TO SEVERE Last administered on 05/01/18at 12:13; Start 04/30/18 at 14:45 ; Stop 05/02/18 at 09:01; Status DC Senna/Docusate Sodium (Senna Plus) 1 tab PRN BID PRN PO CONSTIPATION, 1sT CHOICE Last administered on 05/03/18at 16:40; Start 05/01/18 at 09:15 Bisacodyl (Dulcolax Tab) 5 mg PRN DAILY PRN PO CONSTIPATION, 2nd CHOICE; Start 05/01/18 at 09:15 Methylprednisolone Acetate (DEPO-Medrol 40MG VIAL) 40 mg STK-MED ONCE .ROUTE ; Start 05/01/18 at 10:38; Stop 05/01/18 at 10:40; Status DC Iohexol (Omnipaque 180 Mg/ml) 10 ml STK-MED ONCE .ROUTE ; Start 05/01/18 at 10: 38; Stop 05/01/18 at 10:40; Status DC Methylprednisolone Acetate (DEPO-Medrol 80MG VIAL) 80 mg STK-MED ONCE .ROUTE ; Start 05/01/18 at 10:38; Stop 05/01/18 at 10:40; Status DC Gabapentin (Neurontin) 100 mg TID PO Last administered on 05/04/18at 09:12; Start 05/01/18 at 14:00 Bupivacaine HCl (Sensorcaine-Mpf 0.25%) 10 ml STK-MED ONCE .ROUTE ; Start at 15:00; Stop 05/01/18 at 14:24; Status DC Methylprednisolone Acetate (DEPO-Medrol 40MG VIAL) 40 mg STK-MED ONCE .ROUTE ; Start 04/30/18 at 15:00; Stop 05/01/18 at 14:24; Status DC Acetaminophen/ Hydrocodone Bitart (Lortab 10/325) 1 tab PRN Q4HRS PRN PO PAIN MODERATE TO SEVERE Last administered on 05/03/18at 20:20; Start 05/02/18 at 09:00 Docusate Sodium (Colace) 100 mg BID PO Last administered on 05/03/18at 20:20; Start 05/02/18 at 09:00 Polyethylene Glycol (miraLAX PACKET) 17 gm DAILY PO Last administered on at 08:21; Start 05/02/18 at 09:00 Albuterol Sulfate (Ventolin Neb Soln) 2.5 mg RTQID NEB ; Start 05/02/18 at 16:00 Active Scripts Active Reported Prilosec Otc (Omeprazole Magnesium) 20 Mg Tablet.dr 1 Tab PO DAILY Norvasc (Amlodipine Besylate) 5 Mg Tablet 1 Tab PO DAILY Losartan Potassium 50 Mg Tablet 50 Mg PO DAILY Meloxicam 15 Mg Tablet 1 Tab PO DAILY Trazodone Hcl 50 Mg Tablet 1 Tab PO QHS Sertraline Hcl 50 Mg Tablet 50 Mg PO DAILY Duoneb 0.5-3(2.5) Mg/3 Ml (Albuterol/Ipratropium) 3 Ml Ampul.neb 3 Ml IH PRN QID PRN Clonazepam 1 Mg Tablet 1 Tab PO PRN TID PRN Proair Hfa Inhaler (Albuterol Sulfate) 8.5 Gm Hfa.aer.ad 1 Puff INH PRN Q6HRS PRN Vitals/I & O Vital Sign - Last 24 Hours 05/03/18 05/03/18 05/03/1819 10:49 14:53 19:55 20:20 Temp 97.7 97.7 97.7 97.7 Pulse 65 59 Resp 18 18 20 B/P (MAP) 128/59 (82) 118/58 (78) Pulse Ox 97 98 O2 Delivery Room Air Room Air Room Air Room Air 05/03/18 05/03/18 05/04/18 05/04/18 21:20 23:22 03:05 07:00 Temp 97.9 98.0 97.5 97.9 98.0 97.5 Pulse 63 59 51 Resp 20 18 18 18 B/P (MAP) 91/41 (58) 116/45 (68) 149/64 (92) Pulse Ox 97 97 94 O2 Delivery Room Air Room Air Room Air Room Air 05/04/18 05/04/18 09:11 09:11 Pulse 51 51 B/P (MAP) 149/64 149/64 Intake and Output 05/03/18 05/03/18 05/04/18 15:01 23:01 07:01 Intake Total 600 ml 540 ml 480 ml Output Total 300 ml Balance 300 ml 540 ml 480 ml DOUG ASENCIO MD May 04, 2018 10:46
[2018-05-04 11:15] VITALS: BP 142/71
--- NOTE | 2018-05-04 13:36 | NUR ---
Discharge Note: [place] Discharge instructions and discharge home medications reviewed with Patient and a copy given. All questions have been answered and understanding verbalized. The following instructions and handouts were given: discharge instructions (diet, activity, etc.), medications, 2 prescriptions (Neurontin, Lortab), follow-up instructions, patient education. Discontinued lines and drains: peripheral IV discontinued without complications and with catheter tip intact. Patient discharged to home with self care via private vehicle.
== END 2018-05-04 13:30 | disposition home or self-care (01) | DRG 552 ==
LOC: 4 NORTH 12:20
PROVIDERS: ADMIT Internal Medicine; ATTEND Internal Medicine
PROC: 3E0R33Z Introduction of Anti-inflammatory into Spinal Canal, Percutaneous Approach (ICD-10-PCS; principal; 2018-05-01)
PROC: 3E0R3BZ Introduction of Anesthetic Agent into Spinal Canal, Percutaneous Approach (ICD-10-PCS; 2018-05-01)
DX: M47.26 Other spondylosis with radiculopathy, lumbar region (principal); M48.061 Spinal stenosis, lumbar region without neurogenic claudication; E66.01 Morbid (severe) obesity due to excess calories; J45.909 Unspecified asthma, uncomplicated; Z88.0 Allergy status to penicillin; Z88.8 Allergy status to other drugs, medicaments and biological substances; E11.40 Type 2 diabetes mellitus with diabetic neuropathy, unspecified; G89.29 Other chronic pain; I10 Essential (primary) hypertension; K59.00 Constipation, unspecified; M15.9 Polyosteoarthritis, unspecified; E11.42 Type 2 diabetes mellitus with diabetic polyneuropathy; Z96.653 Presence of artificial knee joint, bilateral; Z79.899 Other long term (current) drug therapy; Z82.3 Family history of stroke; Z82.49 Family history of ischemic heart disease and other diseases of the circulatory system; Z87.440 Personal history of urinary (tract) infections; Z88.5 Allergy status to narcotic agent; Z83.3 Family history of diabetes mellitus; Z79.4 Long term (current) use of insulin; Z68.39 Body mass index [BMI] 39.0-39.9, adult; M41.9 Scoliosis, unspecified
CPT/HCPCS: 36415; 62323; 72158; 80048; 80053; 82550; 82607; 82962; 84443; 85007; 85025; 85027; 85730; A9585; J1030; J1040; J1650; J2405; J3010; J3490; Q9965; 97110; 97116; 97530

== ENCOUNTER 2018-05-25 08:40 | Inpatient (IN) | payer MEDICARE ==
[~2018-05-25] VITALS: Ht 154.9 cm; Wt 97.5 kg
[~2018-05-25 08:40] MED LIST changes: +GABA-585 PO; +HYDR-2769 PO
[2018-05-25 10:30] VITALS: BP 103/55
--- NOTE | 2018-05-25 11:24 | PDOC1 ---
History and Physical Date of Admission Date of Admission DATE: 05/25/18 TIME: 11:22 Identification/Chief Complaint Chief Complaint seen in er at [facility] with intractable back and radicular leg pain, required iv narcotics for relief, HAS HAD NO SUCESS WITH pt OUT-PT, PAIN INCREASED X 2 DAYS Past Medical History Past Medical History Past Medical History Past Medical History: Diverticulitis, Diverticulosis Past Surgical History: No Surgical History Additional Information: Never smoker Alcohol Use: None Drug Use: None, fhx obesity PAST SURGICAL HISTORY: breast biopsy, cholecystectomy, total knee replacement, tonsillectomy and drainage with diverticular abscess. ALLERGIES: She is allergic to PENICILLIN, although she did tolerate amoxicillin. SHE IS ALSO ALLERGIC TO AUGMENTIN, CODEINE,but takes hydrocodone ok , all to CLINDAMYCIN, AND MORPHINE. FAMILY HISTORY: Positive for cancer, coronary artery disease, diabetes, hypertension, and CVA. SOCIAL HISTORY: She does not smoke, drink alcohol or use recreational drugs. Cardiovascular: HTN Pulmonary: Asthma Psych: Anxiety Past Surgical History Past Surgical History Procedures ERCP+sphincterotomy. Findings 1. Dilated common bile duct up to the ampulla 2. Papillary stenosis 3. Status post sphincterotomy and balloon swipe. Plan Past Surgical History: Breast Biopsy, Cholecystectomy, Total knee replacement, Tonsillectomy, Other Family History Family History: Cancer, Coronary Artery Disease, Diabetes, Hypertension, Stroke Social History ALCOHOL: none Drugs: None Current Medications Current Medications Active Scripts Active Hydrocodone-Apap 10-325 (Hydrocodone Bit/Acetaminophen) 1 Tab Tablet 1 Tab PO Q4H PRN 30 Days Gabapentin (Gabapentin) 100 Mg Capsule 100 Mg PO TID 30 Days Reported Prilosec Otc (Omeprazole Magnesium) 20 Mg Tablet.dr 1 Tab PO DAILY Norvasc (Amlodipine Besylate) 5 Mg Tablet 1 Tab PO DAILY Losartan Potassium 50 Mg Tablet 50 Mg PO DAILY Trazodone Hcl 50 Mg Tablet 1 Tab PO QHS Sertraline Hcl 50 Mg Tablet 50 Mg PO DAILY Duoneb 0.5-3(2.5) Mg/3 Ml (Albuterol/Ipratropium) 3 Ml Ampul.neb 3 Ml IH PRN QID PRN Clonazepam 1 Mg Tablet 1 Tab PO PRN TID PRN Allergies Allergies: Coded Allergies: Penicillins (Verified Allergy, Intermediate, 12/22/14) clindamycin (Verified Allergy, Intermediate, 12/22/14) codeine (Verified Adverse Reaction, Intermediate, Itching;, 04/29/18) morphine (Verified Adverse Reaction, Mild, nausea/vomiting, 04/29/18) ROS General: No: Chills, Night Sweats, Fatigue, Malaise, Appetite, Other PSYCHOLOGICAL ROS: No: Anxiety, Behavioral Disorder, Concentration difficultie , Decreased libido, Depression, Disorientation, Hallucinations, Hostility, Irritablity, Memory difficulties, Mood Swings, Obsessive thoughts, Physical abuse, Sexual abuse, Sleep disturbances, Suicidal ideation, Other Eyes: No Blurry vision, No Decreased vision, No Double vision, No Dry eyes, No Excessive tearing, No Eye Pain, No Itchy Eyes, No Loss of vision, No Photophobia , No Scotomata, No Uses contacts, No Uses glasses, No Other HEENT: No: Heacaches, Visual Changes, Hearing change, Nasal congestion, Nasal discharge, Oral lesions, Sinus pain, Sore Throat, Epistaxis, Sneezing, Snoring, Tinnitus, Vertigo, Vocal changes, Other ALLERGY AND IMMUNOLOGY: No: Hives, Insect Bite Sensitivity, Itchy/Watery Eyes, Nasal Congestion, Post Nasal Drip, Seasonal Allergies, Other Hematological and Lymphatic: No: Bleeding Problems, Blood Clots, Blood Transfusions, Brusing, Night Sweats, Pallor, Swollen Lymph Nodes, Other Cardiovascular: No Chest Pain, No Palpitations, No Orthopnea, No Paroxysmal Noc. Dyspnea, No Edema, No Lt Headedness, No Other Gastrointestinal: Yes Constipation Genitourinary: No Dysuria, No Frequency, No Incontinence, No Hematuria, No Retention, No Discharge, No Urgency, No Pain, No Flank Pain, No Other, No , No , No , No , No , No , No Musculoskeletal: Yes Gait Disturbance Neurological: Yes Gait Disturbance Skin: No Dry Skin, No Eczema, No Hair Changes, No Lumps, No Mole Changes, No Mottling, No Nail Changes, No Pruritus, No Rash, No Skin Lesion Changes, No Other, No Acne Physical Exam General: Alert, Oriented X3, Cooperative, moderate distress HEENT: Atraumatic, PERRLA Lungs: Clear to auscultation, Normal air movement Heart: S1S2, RRR, no thrills, no gallops Breasts: Not examined Abdomen: Normal bowel sounds, Soft, Other (VERY OBESE, NO PALPABLE MASS) Rectal Exam: not examined PELVIC: Examination not indicated Extremities: No clubbing, No cyanosis Skin: No breakdown Neuro: Normal speech, Sensation intact, Cranial nerves 3-12 NL Psych/Mental Status: Mental status NL, Mood NL Images Images MRI of the lumbar spine without and with contrast 04/29/2018 CLINICAL HISTORY: Low back pain. TECHNIQUE: Unenhanced T1-weighted and T2-weighted sagittal and axial and inversion recovery sagittal images of the lumbar spine were obtained. After the intravenous administration of 10 cc of Gadavist, enhanced T1-weighted sagittal and axial images of the lumbar spine were obtained. FINDINGS: For the purposes of this dictation 5 lumbar vertebrae have been assumed. The last well-defined lumbar-appearing disc space will be referred to as L5-S1. L5 is partially sacralized. Mild to moderate S-shaped curvature of the thoracolumbar spine is seen. Degenerative signal changes are seen involving all of the disks of the lumbar spine. Loss of height of the L4-5 and L5-S1 discs is noted. Degenerative signal changes are seen within the marrow surrounding these discs. The conus medullaris is normal in position and signal characteristics. No area of abnormal contrast enhancement is seen. At the L1-2 disc space there is a mild generalized disc bulge. Degenerative changes are seen involving the facet joints bilaterally. These findings do not result in significant central spinal canal or neural foraminal stenosis. At the L2-3 disc space there is a mild generalized disc bulge. Degenerative changes are seen involving the facet joints bilaterally. These findings result in mild central spinal canal stenosis. No neural foraminal stenosis is seen. At the L3-4 disc space there is a moderate generalized disc bulge. Degenerative changes are seen involving the facet joints bilaterally. There is moderate ligamentum flavum hypertrophy bilaterally. There are small to moderate-sized facet joint effusions, right greater than left. These findings when combined result in moderate to severe central spinal canal stenosis. Mild bilateral neural foraminal stenosis is seen. At the L4-5 disc space there is a mild generalized disc bulge. Degenerative changes are seen involving the facet joints bilaterally. These findings when combined do not result in significant central spinal canal or neural foraminal stenosis. The L5-S1 disc space there is a mild generalized disc bulge. Degenerative changes are seen involving the facet joints bilaterally. These findings when combined do not result in significant central spinal canal or neural foraminal stenosis. IMPRESSION: The changes of degenerative disc disease are seen throughout the lumbar spine. These findings result in mild central spinal canal stenosis at L2-3 and moderate to severe central spinal canal stenosis at L3-4. Mild bilateral neural foraminal stenosis is seen L3-4. Electronically signed by: Benny Aguayo MD (04/29/2018 4:01 PM) [id number] VTE Prophylaxis Ordered VTE Prophylaxis Devices: Yes VTE Pharmacological Prophylaxi: Yes Assessment/Plan Assessment/Plan Right LE numbness and tingling., INTRACTABLE PAIN Peripheral neuropathy. Chronic back pain. 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 moderate to severe central spinal canal stenosis at L3-4. Mild bilateral neural foraminal stenosis is seen L3-4. DM. OA. Obesity. PLAN IV PAIN CONTROL Neurology consult consult DR SINGER DVT PROPHYLAXIS CONT HOME MEDS PT/OT TRANSFER CARE TO DR ROSARIO, HER PCP LIDIA CONNELLY MD May 25, 2018 11:24
[2018-05-25] MEDS ORDERED: clonazePAM 1 MG TABLET PO PRN (11:45)
[2018-05-25] MEDS ORDERED: ALBUTEROL SULFATE 2.5 MG/3 ML NEBU. NEB PRN (11:45)
[2018-05-25] MEDS: fentaNYL PF VIAL 100 MCG/2 ML VIAL IV PRN ×2 (11:58→15:41)
[2018-05-25] MEDS: PANTOPRAZOLE 40 MG TABLET.DR. PO SCH (12:50)
[2018-05-25] MEDS: SERTRALINE 50 MG TABLET. PO SCH (12:50)
[2018-05-25] MEDS: LOSARTAN POTASSIUM 50 MG TABLET. PO SCH (12:51)
[2018-05-25] MEDS: amLODIPine BESYLATE 5 MG TABLET PO SCH (12:51)
[2018-05-25 13:07] LABS: BILIRUBIN,URINE NEGATIVE (NEG); COLOR,URINE YELLOW; NITRITE,URINE POSITIVE (NEG); PH,URINE 8.5; PROTEIN,URINE NEGATIVE (NEG-TRACE)
[2018-05-25 13:23] LABS: CLARITY,URINE CLOUDY
[2018-05-25 13:25] LABS: BACTERIA,URINE MANY /HPF (0-FEW); RBC,URINE OCC /HPF (0-2); SQUAMOUS EPITHELIAL CELL,UR FEW /LPF; WBC,URINE >40 /HPF (0-4)
[2018-05-25 13:40] LABS: BASO % 0 % (0-3); EOS # 0.1 x10^3/uL (0.0-0.7); EOS % 2 % (0-3); HEMATOCRIT 32.1 % (36.0-47.0); HEMOGLOBIN 10.4 g/dL (12.0-15.5); LYMPH # 0.8 x10^3/uL (1.0-4.8); LYMPH % 17 % (24-48); MEAN CORPUSCULAR HEMOGLOBIN 26 pg (25-35); MEAN CORPUSCULAR HGB CONC 32 g/dL (31-37); MEAN CORPUSCULAR VOLUME 80 fL (79-100); MONO # 0.4 x10^3/uL (0.0-1.1); MONO % 9 % (0-9); NEUT # 3.3 x10^3uL (1.8-7.7); NEUT % 72 % (31-73); PLATELET COUNT 172 x10^3/uL (140-400); RED CELL DISTRIBUTION WIDTH 18.5 % (11.5-14.5); WHITE BLOOD COUNT 4.6 x10^3/uL (4.0-11.0)
[2018-05-25 13:48] LABS: ALBUMIN 3.1 g/dL (3.4-5.0); ALBUMIN/GLOBULIN RATIO 0.9 (1.0-1.7); CALCIUM 8.9 mg/dL (8.5-10.1); CREATININE 0.9 mg/dL (0.6-1.0); GFR 62.6; TOTAL BILIRUBIN 0.9 mg/dL (0.2-1.0); TOTAL PROTEIN 6.5 g/dL (6.4-8.2)
[2018-05-25] MEDS: GABAPENTIN 100 MG CAPSULE. PO SCH ×2 (14:18→21:00)
[2018-05-25] MEDS: HYDROcodone/APAP 10/325 1 TAB TABLET PO PRN (14:18)
[2018-05-25 15:00] VITALS: BP 127/58
--- NOTE | 2018-05-25 16:08 | PDOC2 ---
NEUROLOGY CONSULT Date of Admission Date of Admission DATE: 05/25/18 TIME: 15:49 Reason for Consult Reason for Consult: IMPRESSION: Severe lower back pain, acute on chronic. Disc bulging. L3-L4 moderate to severe stenosis. UTI. Obesity. No cord compression or nerve roots impingement on L-spine MRI. RECOMMENDATIONS/PLAN: L-spine MRI performed. Pain control. Consulted Pain Clinic. Consulted Dr. Fofana. OT/PT. Treat medical diseases. Weight reduction. HISTORY OF THE PRESENT ILLNESS: 68-y-old female patient with above medical diseases and lower back pain since . She received injection in Pain Clinic stating helped some degree of her pain. Her pain recurred in the past 2 to 3 days to the point she was unable to move or mobile. No focaled sensory or motor deficits. No urinary or bowel incontinence or retention. Past Medical History Past Medical History: Diverticulitis, Diverticulosis Cardiovascular: HTN Pulmonary: Asthma Psych: Anxiet PAST SURGICAL HISTORY: Breast biopsy, cholecystectomy, total knee replacement, tonsillectomy and drainage with diverticular abscess. ERCP+sphincterotomy. Findings: 1. Dilated common bile duct up to the ampulla 2. Papillary stenosis 3. Status post sphincterotomy and balloon swipe FAMILY HISTORY: Positive for cancer, coronary artery disease, diabetes, hypertension, and CVA. SOCIAL HISTORY: She does not smoke, drink alcohol or use recreational drugs. Psych: Anxiety ALCOHOL: none Drugs: None Allergies Coded Allergies: Penicillins (Verified Allergy, Intermediate, 12/22/14) clindamycin (Verified Allergy, Intermediate, 12/22/14) codeine (Verified Adverse Reaction, Intermediate, Itching;, 04/29/18) morphine (Verified Adverse Reaction, Mild, nausea/vomiting, 04/29/18) ROS General: No: Chills, Night Sweats, Fatigue, Malaise, Appetite, Other PSYCHOLOGICAL ROS: No: Anxiety, Behavioral Disorder, Concentration difficultie , Decreased libido, Depression, Disorientation, Hallucinations, Hostility, Irritablity, Memory difficulties, Mood Swings, Obsessive thoughts, Physical abuse, Sexual abuse, Sleep disturbances, Suicidal ideation, Other Eyes: No Blurry vision, No Decreased vision, No Double vision, No Dry eyes, No Excessive tearing, No Eye Pain, No Itchy Eyes, No Loss of vision, No Photophobia , No Scotomata, No Uses contacts, No Uses glasses, No Other HEENT: No: Heacaches, Visual Changes, Hearing change, Nasal congestion, Nasal discharge, Oral lesions, Sinus pain, Sore Throat, Epistaxis, Sneezing, Snoring, Tinnitus, Vertigo, Vocal changes, Other ALLERGY AND IMMUNOLOGY: No: Hives, Insect Bite Sensitivity, Itchy/Watery Eyes, Nasal Congestion, Post Nasal Drip, Seasonal Allergies, Other Hematological and Lymphatic: No: Bleeding Problems, Blood Clots, Blood Transfusions, Brusing, Night Sweats, Pallor, Swollen Lymph Nodes, Other Cardiovascular: No Chest Pain, No Palpitations, No Orthopnea, No Paroxysmal Noc. Dyspnea, No Edema, No Lt Headedness, No Other Gastrointestinal: Yes Constipation Genitourinary: No Dysuria, No Frequency, No Incontinence, No Hematuria, No Retention, No Discharge, No Urgency, No Pain, No Flank Pain, No Other, No , No , No , No , No , No , No Musculoskeletal: Yes Gait Disturbance Neurological: Yes Gait Disturbance Skin: No Dry Skin, No Eczema, No Hair Changes, No Lumps, No Mole Changes, No Mottling, No Nail Changes, No Pruritus, No Rash, No Skin Lesion Changes, No Other, No Acne MEDICATIONS: Refer to MAR PHYSICAL EXAMINATION: General appearance is in subacute distress. HEENT: Normocephalic and nontraumatic. Eyes, nose, ears, and throat are unremarkable. Neck is supple. No lymphadenopathy. No crepitus. Cardiovascular: S1, S2, regular rate and rhythm. Pulmonary: Clear to auscultation bilaterally. Abdomen: Bowel sounds are positive. Abdomen is soft, nontender, and nondistended. Extremities: No rash, lesions, or edema. Restriction of range of motion due to back pain. NEUROLOGICAL EXAMINATION: Alert Oriented to time, place and person. PERRL. EOMI. CN: no focal findings. Muscle tone: within normal. Muscle strength: 4+ DTR: 1- due to obesity. Plantar reflex: Flexor response bilaterally Gait: not examined in bed. Sensory exam: no abnormal findings. No cerebellar signs elicited. F-T-N test fine. Current Medications Current Medications Current Medications Fentanyl Citrate (Fentanyl 2ml Vial) 50 mcg PRN Q2HR PRN IV PAIN Last administered on 05/25/18at 15:41; Start 05/25/18 at 11:45 Amlodipine Besylate (Norvasc) 5 mg DAILY PO Last administered on 05/25/18at 12: 51; Start 05/25/18 at 12:30 Clonazepam (KlonoPIN) 1 mg PRN TID PRN PO ANXIETY; Start 05/25/18 at 11:45 Gabapentin (Neurontin) 100 mg TID PO Last administered on 05/25/18at 14:18; Start 05/25/18 at 14:00 Acetaminophen/ Hydrocodone Bitart (Lortab 10/325) 1 tab PRN Q4HRS PRN PO PAIN Last administered on 05/25/18at 14:18; Start 05/25/18 at 11:45 Albuterol Sulfate (Ventolin Neb Soln) 2.5 mg PRN Q6HRS PRN NEB SHORTNESS OF BREATH; Start 05/25/18 at 11:45 Losartan Potassium (Cozaar) 50 mg DAILY PO Last administered on 05/25/18at 12:51 ; Start 05/25/18 at 12:30 Sertraline HCl (Zoloft) 50 mg DAILY PO Last administered on 05/25/18at 12:50; Start 05/25/18 at 12:30 Trazodone HCl (Desyrel) 50 mg QHS PO ; Start 05/25/18 at 21:00 Pantoprazole Sodium (Protonix) 40 mg DAILYAC PO Last administered on 05/25/18at 12:50; Start 05/25/18 at 12:30 Active Scripts Active Hydrocodone-Apap 10-325 (Hydrocodone Bit/Acetaminophen) 1 Tab Tablet 1 Tab PO Q4H PRN 30 Days Gabapentin (Gabapentin) 100 Mg Capsule 100 Mg PO TID 30 Days Reported Prilosec Otc (Omeprazole Magnesium) 20 Mg Tablet. 1 Tab PO DAILY Norvasc (Amlodipine Besylate) 5 Mg Tablet 1 Tab PO DAILY Losartan Potassium 50 Mg Tablet 50 Mg PO DAILY Trazodone Hcl 50 Mg Tablet 1 Tab PO QHS Sertraline Hcl 50 Mg Tablet 50 Mg PO DAILY Duoneb 0.5-3(2.5) Mg/3 Ml (Albuterol/Ipratropium) 3 Ml Ampul.neb 3 Ml IH PRN QID PRN Clonazepam 1 Mg Tablet 1 Tab PO PRN TID PRN Allergies Allergies: Allergies Coded Allergies Type Severity Reaction Last Updated Verified Penicillins Allergy Intermediate 12/22/14 Yes clindamycin Allergy Intermediate 12/22/14 Yes codeine Adverse Reaction Intermediate Itching; 04/29/18 Yes morphine Adverse Reaction Mild nausea/vomiting 04/29/18 Yes ROS Review of System The patient denies any associated fevers, chills, headache, ear pain, rhinorrhea , sore throat, stiff neck, productive cough, chest pain, shortness of breath, back or flank pain, abdominal pain, nausea, vomiting, diarrhea, constipation, dysuria, rash, numbness, weakness, tingling, incontinence, difficulty ambulating, or diaphoresis. Physical Exam Physical Exam General: Well developed, well nourished, no acute distress, well appearing HEENT: Pupils equally round and reactive to light, EOMI, no discharge, normal conjunctiva Neck: Supple, no nuchal rigidity, no JVD, trachea midline, no tenderness Cardiac: RRR, no murmurs, no gallops, no rubs Chest/Lungs: CTAB, no wheeze, no rhonchi, no crackles Abdomen: soft, non-distended, no guarding, no peritoneal signs, non-tender Back: No tenderness Extremities: no edema, pulses intact, non-tender,capillary refill <3 sec bilateral upper and lower extremities, Neuro: Alert and oriented x 4, no focal deficits, normal speech Vitals Vitals: Vital Signs Date Time Temp Pulse Resp B/P (MAP) Pulse Ox O2 Delivery O2 Flow Rate FiO2 05/25/18 15:41 16 Nasal Cannula 2.0 05/25/18 15:00 98.1 64 127/58 (81) 98.1 05/25/18 10:30 95 Labs Labs Laboratory Tests Test 05/25/18 12:35 05/25/18 13:05 Urine Collection Type Unknown Urine Color Yellow Urine Clarity Cloudy Urine pH 8.5 Urine Specific [place] 1.015 Urine Protein Negative mg/dL (NEG-TRACE) Urine Glucose (UA) Negative mg/dL (NEG) Urine Ketones (Stick) Negative mg/dL (NEG) Urine Blood Negative (NEG) Urine Nitrite Positive (NEG) Urine Bilirubin Negative (NEG) Urine Urobilinogen Dipstick 1.0 mg/dL (0.2 mg/dL) Urine Leukocyte Esterase Large (NEG) Urine RBC Occ /HPF (0-2) Urine WBC >40 /HPF (0-4) Urine Squamous Epithelial Cells Few /LPF Urine Bacteria Many /HPF (0-FEW) Urine Mucus Slight /LPF White Blood Count 4.6 x10^3/uL (4.0-11.0) Red Blood Count 4.00 x10^6/uL (3.50-5.40) Hemoglobin 10.4 g/dL (12.0-15.5) Hematocrit 32.1 % (36.0-47.0) Mean Corpuscular Volume 80 fL (79-100) Mean Corpuscular Hemoglobin 26 pg (25-35) Mean Corpuscular Hemoglobin Concent 32 g/dL (31-37) Red Cell Distribution Width 18.5 % (11.5-14.5) Platelet Count 172 x10^3/uL (140-400) Neutrophils (%) (Auto) 72 % (31-73) Lymphocytes (%) (Auto) 17 % (24-48) Monocytes (%) (Auto) 9 % (0-9) Eosinophils (%) (Auto) 2 % (0-3) Basophils (%) (Auto) 0 % (0-3) Neutrophils # (Auto) 3.3 x10^3uL (1.8-7.7) Lymphocytes # (Auto) 0.8 x10^3/uL (1.0-4.8) Monocytes # (Auto) 0.4 x10^3/uL (0.0-1.1) Eosinophils # (Auto) 0.1 x10^3/uL (0.0-0.7) Basophils # (Auto) 0.0 x10^3/uL (0.0-0.2) Sodium Level 141 mmol/L (136-145) Potassium Level 4.0 mmol/L (3.5-5.1) Chloride Level 101 mmol/L (98-107) Carbon Dioxide Level 33 mmol/L (21-32) Anion Gap 7 (6-14) Blood Urea Nitrogen 20 mg/dL (7-20) Creatinine 0.9 mg/dL (0.6-1.0) Estimated GFR (Cockcroft-Gault) 62.6 BUN/Creatinine Ratio 22 (6-20) Glucose Level 86 mg/dL (70-99) Calcium Level 8.9 mg/dL (8.5-10.1) Total Bilirubin 0.9 mg/dL (0.2-1.0) Aspartate Amino Transf (AST/SGOT) 8 U/L (15-37) Alanine Aminotransferase (ALT/SGPT) 19 U/L (14-59) Alkaline Phosphatase 80 U/L (46-116) Total Protein 6.5 g/dL (6.4-8.2) Albumin 3.1 g/dL (3.4-5.0) Albumin/Globulin Ratio 0.9 (1.0-1.7) Laboratory Tests Test 05/25/18 12:35 05/25/18 13:05 Urine Collection Type Unknown Urine Color Yellow Urine Clarity Cloudy Urine pH 8.5 Urine Specific [place] 1.015 Urine Protein Negative mg/dL (NEG-TRACE) Urine Glucose (UA) Negative mg/dL (NEG) Urine Ketones (Stick) Negative mg/dL (NEG) Urine Blood Negative (NEG) Urine Nitrite Positive (NEG) Urine Bilirubin Negative (NEG) Urine Urobilinogen Dipstick 1.0 mg/dL (0.2 mg/dL) Urine Leukocyte Esterase Large (NEG) Urine RBC Occ /HPF (0-2) Urine WBC >40 /HPF (0-4) Urine Squamous Epithelial Cells Few /LPF Urine Bacteria Many /HPF (0-FEW) Urine Mucus Slight /LPF White Blood Count 4.6 x10^3/uL (4.0-11.0) Red Blood Count 4.00 x10^6/uL (3.50-5.40) Hemoglobin 10.4 g/dL (12.0-15.5) Hematocrit 32.1 % (36.0-47.0) Mean Corpuscular Volume 80 fL (79-100) Mean Corpuscular Hemoglobin 26 pg (25-35) Mean Corpuscular Hemoglobin Concent 32 g/dL (31-37) Red Cell Distribution Width 18.5 % (11.5-14.5) Platelet Count 172 x10^3/uL (140-400) Neutrophils (%) (Auto) 72 % (31-73) Lymphocytes (%) (Auto) 17 % (24-48) Monocytes (%) (Auto) 9 % (0-9) Eosinophils (%) (Auto) 2 % (0-3) Basophils (%) (Auto) 0 % (0-3) Neutrophils # (Auto) 3.3 x10^3uL (1.8-7.7) Lymphocytes # (Auto) 0.8 x10^3/uL (1.0-4.8) Monocytes # (Auto) 0.4 x10^3/uL (0.0-1.1) Eosinophils # (Auto) 0.1 x10^3/uL (0.0-0.7) Basophils # (Auto) 0.0 x10^3/uL (0.0-0.2) Sodium Level 141 mmol/L (136-145) Potassium Level 4.0 mmol/L (3.5-5.1) Chloride Level 101 mmol/L (98-107) Carbon Dioxide Level 33 mmol/L (21-32) Anion Gap 7 (6-14) Blood Urea Nitrogen 20 mg/dL (7-20) Creatinine 0.9 mg/dL (0.6-1.0) Estimated GFR (Cockcroft-Gault) 62.6 BUN/Creatinine Ratio 22 (6-20) Glucose Level 86 mg/dL (70-99) Calcium Level 8.9 mg/dL (8.5-10.1) Total Bilirubin 0.9 mg/dL (0.2-1.0) Aspartate Amino Transf (AST/SGOT) 8 U/L (15-37) Alanine Aminotransferase (ALT/SGPT) 19 U/L (14-59) Alkaline Phosphatase 80 U/L (46-116) Total Protein 6.5 g/dL (6.4-8.2) Albumin 3.1 g/dL (3.4-5.0) Albumin/Globulin Ratio 0.9 (1.0-1.7) ANGIE SIM MD May 25, 2018 16:08
[2018-05-25 19:00] VITALS: BP 106/43
--- NOTE | 2018-05-25 19:48 | CONS ---
DATE OF CONSULTATION: 05/25/2018 ATTENDING PHYSICIAN: Dr. Ba. The patient was seen at the request of Dr. Ba for rehab evaluation. 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 Mustafa in the past without any problems, diverticulitis, VRE as well as E. coli, diverticular abscess, status post drainage placement done on 05/07/2017, also status post cholecystectomy, tonsillectomy. ALLERGIES: KNOWN ALLERGIC TO PENICILLIN, AUGMENTIN, CODEINE, CLINDAMYCIN, MORPHINE. The patient also with family history positive for carcinoma, coronary artery disease, diabetes mellitus, hypertension, cerebrovascular accident. The patient had history of diabetes mellitus type 2, lives with her in [place], [place], home had three steps to enter the house, no steps inside the house. She has been independent with her mobility and self-care skills until her back problem started on 04/12/2018 without any specific injury having difficulty to sit. She had to use a walker ever since then. The patient admits radiation of pain to her right lower extremity with associated tingling and numbness. She admits some problems with constipation, but denies any difficulty with bladder control, had an MRI scan of her lumbar vertebrae, which revealed multilevel degenerative disk disease and degenerative joint disease of lumbar vertebrae with some degree of central spinal stenosis and neural foraminal compromise. She had gone through epidural steroid injection without any lasting help. I have injected her right sacral joint area during her last admission on 04/30/2018 with temporary help. The patient had been using a roller walker and also abdominal binder as lumbar corset. The patient admits continued pain and hydrocodone is not helping. PHYSICAL EXAMINATION: Today revealed a middle-aged female. She is alert, oriented to time, place, person and circumstance and follows commands appropriately. Moves all 4 extremities voluntarily where she had 4+/5 grade muscle strength. Deep tendon reflexes are 1-2+ and symmetrical with absent ankle jerks. She had equal perception of touch and pinprick sensation bilaterally. She had tenderness to palpation mainly over right sacroiliac joint area and straight leg raising test is negative bilaterally. Her skin is intact at this time. She complains of pain while rolling from side to side. I have not tested her transfers or ambulation skills at this time. ASSESSMENT: A middle-aged female with degenerative disk disease and degenerative joint disease of lumbar vertebrae with some degree of central spinal and neural foraminal compromise with right lumbar radiculitis. No clinical evidence of ongoing lumbar radiculopathy, diabetes mellitus with peripheral neuropathy, obesity, asthmatic bronchitis, hypertension, status post bilateral total knee arthroplasty. RECOMMENDATION: To ask Physical Therapy and Occupational Therapy to see her. She might need lumbar corset for use while up and to ask for a neurosurgical advice as trigger point injection and epidural steroid injection did not provide any lasting help. Dr. Ba, I appreciate asking me to participate in the care of this interesting patient. I will be glad to follow her with you as needed for her rehabilitation. SHEYLA SINGER MD DR: SRAVANI/natalya JOB#: [id number] / [id number]
[2018-05-25] MEDS: traZODone 50 MG TABLET. PO SCH (21:00)
[2018-05-26 03:00] VITALS: BP 116/91
--- NOTE | 2018-05-26 03:30 | NUR ---
[employer] was down for 5 hours. See chart for documentation of medications given and shift assessment.
[2018-05-26 07:15] VITALS: BP 110/47
[2018-05-26] MEDS: PANTOPRAZOLE 40 MG TABLET.DR. PO SCH (08:51)
[2018-05-26] MEDS: LOSARTAN POTASSIUM 50 MG TABLET. PO SCH (08:52)
[2018-05-26] MEDS: amLODIPine BESYLATE 5 MG TABLET PO SCH (08:52)
[2018-05-26] MEDS: GABAPENTIN 100 MG CAPSULE. PO SCH ×3 (08:52→21:49)
[2018-05-26] MEDS: SERTRALINE 50 MG TABLET. PO SCH (08:52)
[2018-05-26] MEDS: HYDROcodone/APAP 10/325 1 TAB TABLET PO PRN ×3 (08:53→21:50)
--- NOTE | 2018-05-26 09:58 | PDOC ---
PROGRESS NOTES Subjective Subjective She admits continued low back pain. Objective Objective Vital Signs Date Time Temp Pulse Resp B/P (MAP) Pulse Ox O2 Delivery O2 Flow Rate FiO2 05/26/18 08:53 95 Room Air 05/26/18 08:52 57 110/47 05/26/18 07:15 98.0 18 98.0 05/26/18 03:00 1.0 Intake and Output 05/26/18 07:00 Intake Total 120 ml Balance 120 ml Intake Oral 120 ml # Voids 6 Physical Exam Physical Exam She is supine in bed and in no acute distress and no change with her neurological status.She is not getting up much. Plan Plan of Care Awaiting neurosurgical advise and she is agreeable for trial of 2nd lumbar epidural steroid injection to be done tomorrow. Comment Review of Relevant I have reviewed the following items juju (where applicable) has been applied. Labs Laboratory Tests Test 05/25/18 12:35 05/25/18 13:05 Urine Collection Type Unknown Urine Color Yellow Urine Clarity Cloudy Urine pH 8.5 Urine Specific [place] 1.015 Urine Protein Negative mg/dL (NEG-TRACE) Urine Glucose (UA) Negative mg/dL (NEG) Urine Ketones (Stick) Negative mg/dL (NEG) Urine Blood Negative (NEG) Urine Nitrite Positive (NEG) Urine Bilirubin Negative (NEG) Urine Urobilinogen Dipstick 1.0 mg/dL (0.2 mg/dL) Urine Leukocyte Esterase Large (NEG) Urine RBC Occ /HPF (0-2) Urine WBC >40 /HPF (0-4) Urine Squamous Epithelial Cells Few /LPF Urine Bacteria Many /HPF (0-FEW) Urine Mucus Slight /LPF White Blood Count 4.6 x10^3/uL (4.0-11.0) Red Blood Count 4.00 x10^6/uL (3.50-5.40) Hemoglobin 10.4 g/dL (12.0-15.5) Hematocrit 32.1 % (36.0-47.0) Mean Corpuscular Volume 80 fL (79-100) Mean Corpuscular Hemoglobin 26 pg (25-35) Mean Corpuscular Hemoglobin Concent 32 g/dL (31-37) Red Cell Distribution Width 18.5 % (11.5-14.5) Platelet Count 172 x10^3/uL (140-400) Neutrophils (%) (Auto) 72 % (31-73) Lymphocytes (%) (Auto) 17 % (24-48) Monocytes (%) (Auto) 9 % (0-9) Eosinophils (%) (Auto) 2 % (0-3) Basophils (%) (Auto) 0 % (0-3) Neutrophils # (Auto) 3.3 x10^3uL (1.8-7.7) Lymphocytes # (Auto) 0.8 x10^3/uL (1.0-4.8) Monocytes # (Auto) 0.4 x10^3/uL (0.0-1.1) Eosinophils # (Auto) 0.1 x10^3/uL (0.0-0.7) Basophils # (Auto) 0.0 x10^3/uL (0.0-0.2) Sodium Level 141 mmol/L (136-145) Potassium Level 4.0 mmol/L (3.5-5.1) Chloride Level 101 mmol/L (98-107) Carbon Dioxide Level 33 mmol/L (21-32) Anion Gap 7 (6-14) Blood Urea Nitrogen 20 mg/dL (7-20) Creatinine 0.9 mg/dL (0.6-1.0) Estimated GFR (Cockcroft-Gault) 62.6 BUN/Creatinine Ratio 22 (6-20) Glucose Level 86 mg/dL (70-99) Calcium Level 8.9 mg/dL (8.5-10.1) Total Bilirubin 0.9 mg/dL (0.2-1.0) Aspartate Amino Transf (AST/SGOT) 8 U/L (15-37) Alanine Aminotransferase (ALT/SGPT) 19 U/L (14-59) Alkaline Phosphatase 80 U/L (46-116) Total Protein 6.5 g/dL (6.4-8.2) Albumin 3.1 g/dL (3.4-5.0) Albumin/Globulin Ratio 0.9 (1.0-1.7) Laboratory Tests Test 05/25/18 12:35 05/25/18 13:05 Urine Collection Type Unknown Urine Color Yellow Urine Clarity Cloudy Urine pH 8.5 Urine Specific [place] 1.015 Urine Protein Negative mg/dL (NEG-TRACE) Urine Glucose (UA) Negative mg/dL (NEG) Urine Ketones (Stick) Negative mg/dL (NEG) Urine Blood Negative (NEG) Urine Nitrite Positive (NEG) Urine Bilirubin Negative (NEG) Urine Urobilinogen Dipstick 1.0 mg/dL (0.2 mg/dL) Urine Leukocyte Esterase Large (NEG) Urine RBC Occ /HPF (0-2) Urine WBC >40 /HPF (0-4) Urine Squamous Epithelial Cells Few /LPF Urine Bacteria Many /HPF (0-FEW) Urine Mucus Slight /LPF White Blood Count 4.6 x10^3/uL (4.0-11.0) Red Blood Count 4.00 x10^6/uL (3.50-5.40) Hemoglobin 10.4 g/dL (12.0-15.5) Hematocrit 32.1 % (36.0-47.0) Mean Corpuscular Volume 80 fL (79-100) Mean Corpuscular Hemoglobin 26 pg (25-35) Mean Corpuscular Hemoglobin Concent 32 g/dL (31-37) Red Cell Distribution Width 18.5 % (11.5-14.5) Platelet Count 172 x10^3/uL (140-400) Neutrophils (%) (Auto) 72 % (31-73) Lymphocytes (%) (Auto) 17 % (24-48) Monocytes (%) (Auto) 9 % (0-9) Eosinophils (%) (Auto) 2 % (0-3) Basophils (%) (Auto) 0 % (0-3) Neutrophils # (Auto) 3.3 x10^3uL (1.8-7.7) Lymphocytes # (Auto) 0.8 x10^3/uL (1.0-4.8) Monocytes # (Auto) 0.4 x10^3/uL (0.0-1.1) Eosinophils # (Auto) 0.1 x10^3/uL (0.0-0.7) Basophils # (Auto) 0.0 x10^3/uL (0.0-0.2) Sodium Level 141 mmol/L (136-145) Potassium Level 4.0 mmol/L (3.5-5.1) Chloride Level 101 mmol/L (98-107) Carbon Dioxide Level 33 mmol/L (21-32) Anion Gap 7 (6-14) Blood Urea Nitrogen 20 mg/dL (7-20) Creatinine 0.9 mg/dL (0.6-1.0) Estimated GFR (Cockcroft-Gault) 62.6 BUN/Creatinine Ratio 22 (6-20) Glucose Level 86 mg/dL (70-99) Calcium Level 8.9 mg/dL (8.5-10.1) Total Bilirubin 0.9 mg/dL (0.2-1.0) Aspartate Amino Transf (AST/SGOT) 8 U/L (15-37) Alanine Aminotransferase (ALT/SGPT) 19 U/L (14-59) Alkaline Phosphatase 80 U/L (46-116) Total Protein 6.5 g/dL (6.4-8.2) Albumin 3.1 g/dL (3.4-5.0) Albumin/Globulin Ratio 0.9 (1.0-1.7) Medications Current Medications Fentanyl Citrate (Fentanyl 2ml Vial) 50 mcg PRN Q2HR PRN IV PAIN Last administered on 05/25/18 15:41; Start 05/25/18 at 11:45 Amlodipine Besylate (Norvasc) 5 mg DAILY PO Last administered on 05/26/18 08: 52; Start 05/25/18 at 12:30 Clonazepam (KlonoPIN) 1 mg PRN TID PRN PO ANXIETY; Start 05/25/18 at 11:45 Gabapentin (Neurontin) 100 mg TID PO Last administered on 05/26/18 08:52; Start 05/25/18 at 14:00 Acetaminophen/ Hydrocodone Bitart (Lortab 10/325) 1 tab PRN Q4HRS PRN PO PAIN Last administered on 05/26/18 08:53; Start 05/25/18 at 11:45 Albuterol Sulfate (Ventolin Neb Soln) 2.5 mg PRN Q6HRS PRN NEB SHORTNESS OF BREATH; Start 05/25/18 at 11:45 Losartan Potassium (Cozaar) 50 mg DAILY PO Last administered on 05/26/18 08:52 ; Start 05/25/18 at 12:30 Sertraline HCl (Zoloft) 50 mg DAILY PO Last administered on 05/26/18 08:52; Start 05/25/18 at 12:30 Trazodone HCl (Desyrel) 50 mg QHS PO ; Start 05/25/18 at 21:00 Pantoprazole Sodium (Protonix) 40 mg DAILYAC PO Last administered on 05/26/18at 08:51; Start 05/25/18 at 12:30 Active Scripts Active Hydrocodone-Apap 10-325 (Hydrocodone Bit/Acetaminophen) 1 Tab Tablet 1 Tab PO Q4H PRN 30 Days Gabapentin (Gabapentin) 100 Mg Capsule 100 Mg PO TID 30 Days Reported Prilosec Otc (Omeprazole Magnesium) 20 Mg Tablet.dr 1 Tab PO DAILY Norvasc (Amlodipine Besylate) 5 Mg Tablet 1 Tab PO DAILY Losartan Potassium 50 Mg Tablet 50 Mg PO DAILY Trazodone Hcl 50 Mg Tablet 1 Tab PO QHS Sertraline Hcl 50 Mg Tablet 50 Mg PO DAILY Duoneb 0.5-3(2.5) Mg/3 Ml (Albuterol/Ipratropium) 3 Ml Ampul.neb 3 Ml IH PRN QID PRN Clonazepam 1 Mg Tablet 1 Tab PO PRN TID PRN Vitals/I & O Vital Sign - Last 24 Hours 05/25/18 05/25/18 05/25/18 05/25/18 10:30 11:00 11:58 12:51 Temp 97.9 97.9 Pulse 57 57 Resp 20 16 B/P (MAP) 103/55 (71) 103/55 Pulse Ox 95 O2 Delivery Room Air Nasal Cannula Room Air O2 Flow Rate 2.0 05/25/18 05/25/18 05/25/18 05/25/18 12:51 14:18 15:00 15:39 Temp 98.1 98.1 Pulse 57 64 Resp 16 B/P (MAP) 103/55 127/58 (81) O2 Delivery Nasal Cannula Nasal Cannula Nasal Cannula O2 Flow Rate 2.0 1.0 2.0 05/25/18 05/25/18 05/25/18 05/26/18 15:41 17:40 19:00 03:00 Temp 98.4 99.4 98.4 99.4 Pulse 60 78 Resp 16 16 18 18 B/P (MAP) 106/43 (64) 116/91 (99) Pulse Ox 96 92 O2 Delivery Nasal Cannula Nasal Cannula Nasal Cannula Nasal Cannula O2 Flow Rate 2.0 2.0 1.0 1.0 2/1205/26/18 05/26/18 05/26/18 07:15 08:52 08:52 08:53 Temp 98.0 98.0 Pulse 57 57 57 Resp 18 B/P (MAP) 110/47 (68) 110/47 110/47 Pulse Ox 95 95 O2 Delivery Nasal Cannula Room Air Intake and Output 05/25/18 05/25/18 05/26/18 15:00 23:00 07:00 Intake Total 120 ml Balance 120 ml SHEYLA SINGER MD May 26, 2018 09:58
--- NOTE | 2018-05-26 10:15 | PDOC ---
PROGRESS NOTES History of Present Illness History of Present Illness VTE Prophylaxis Ordered VTE Prophylaxis Devices: Yes VTE Pharmacological Prophylaxi: Yes Assessment/Plan Assessment/Plan Right LE numbness and tingling., INTRACTABLE PAIN Peripheral neuropathy. Chronic back pain. 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 moderate to severe central spinal canal stenosis at L3-4. Mild bilateral neural foraminal stenosis is seen L3-4. DM. OA. Obesity. PLAN IV PAIN CONTROL Neurology consult consult DR SINGER DVT PROPHYLAXIS CONT HOME MEDS PT/OT TRANSFER CARE TO DR ROSARIO, HER PCP NEUROSURGERY CONSULT Vitals Vitals Vital Signs Date Time Temp Pulse Resp B/P (MAP) Pulse Ox O2 Delivery O2 Flow Rate FiO2 05/26/18 08:53 95 Room Air 05/26/18 08:52 57 110/47 05/26/18 07:15 98.0 18 98.0 05/26/18 03:00 1.0 Physical Exam General: Alert, Oriented X3, Cooperative, moderate distress Lungs: Clear Abdomen: Normal bowel sounds, Soft, Other (VERY OBESE, NO PALPABLE MASS) Extremities: No clubbing, No cyanosis Skin: No breakdown Labs LABS Laboratory Tests Test 05/25/18 12:35 05/25/18 13:05 Urine Collection Type Unknown Urine Color Yellow Urine Clarity Cloudy Urine pH 8.5 Urine Specific [place] 1.015 Urine Protein Negative mg/dL (NEG-TRACE) Urine Glucose (UA) Negative mg/dL (NEG) Urine Ketones (Stick) Negative mg/dL (NEG) Urine Blood Negative (NEG) Urine Nitrite Positive (NEG) Urine Bilirubin Negative (NEG) Urine Urobilinogen Dipstick 1.0 mg/dL (0.2 mg/dL) Urine Leukocyte Esterase Large (NEG) Urine RBC Occ /HPF (0-2) Urine WBC >40 /HPF (0-4) Urine Squamous Epithelial Cells Few /LPF Urine Bacteria Many /HPF (0-FEW) Urine Mucus Slight /LPF White Blood Count 4.6 x10^3/uL (4.0-11.0) Red Blood Count 4.00 x10^6/uL (3.50-5.40) Hemoglobin 10.4 g/dL (12.0-15.5) Hematocrit 32.1 % (36.0-47.0) Mean Corpuscular Volume 80 fL (79-100) Mean Corpuscular Hemoglobin 26 pg (25-35) Mean Corpuscular Hemoglobin Concent 32 g/dL (31-37) Red Cell Distribution Width 18.5 % (11.5-14.5) Platelet Count 172 x10^3/uL (140-400) Neutrophils (%) (Auto) 72 % (31-73) Lymphocytes (%) (Auto) 17 % (24-48) Monocytes (%) (Auto) 9 % (0-9) Eosinophils (%) (Auto) 2 % (0-3) Basophils (%) (Auto) 0 % (0-3) Neutrophils # (Auto) 3.3 x10^3uL (1.8-7.7) Lymphocytes # (Auto) 0.8 x10^3/uL (1.0-4.8) Monocytes # (Auto) 0.4 x10^3/uL (0.0-1.1) Eosinophils # (Auto) 0.1 x10^3/uL (0.0-0.7) Basophils # (Auto) 0.0 x10^3/uL (0.0-0.2) Sodium Level 141 mmol/L (136-145) Potassium Level 4.0 mmol/L (3.5-5.1) Chloride Level 101 mmol/L (98-107) Carbon Dioxide Level 33 mmol/L (21-32) Anion Gap 7 (6-14) Blood Urea Nitrogen 20 mg/dL (7-20) Creatinine 0.9 mg/dL (0.6-1.0) Estimated GFR (Cockcroft-Gault) 62.6 BUN/Creatinine Ratio 22 (6-20) Glucose Level 86 mg/dL (70-99) Calcium Level 8.9 mg/dL (8.5-10.1) Total Bilirubin 0.9 mg/dL (0.2-1.0) Aspartate Amino Transf (AST/SGOT) 8 U/L (15-37) Alanine Aminotransferase (ALT/SGPT) 19 U/L (14-59) Alkaline Phosphatase 80 U/L (46-116) Total Protein 6.5 g/dL (6.4-8.2) Albumin 3.1 g/dL (3.4-5.0) Albumin/Globulin Ratio 0.9 (1.0-1.7) Comment Review of Relevant I have reviewed the following items juju (where applicable) has been applied. Labs Laboratory Tests Test 05/25/18 12:35 05/25/18 13:05 Urine Collection Type Unknown Urine Color Yellow Urine Clarity Cloudy Urine pH 8.5 Urine Specific [place] 1.015 Urine Protein Negative mg/dL (NEG-TRACE) Urine Glucose (UA) Negative mg/dL (NEG) Urine Ketones (Stick) Negative mg/dL (NEG) Urine Blood Negative (NEG) Urine Nitrite Positive (NEG) Urine Bilirubin Negative (NEG) Urine Urobilinogen Dipstick 1.0 mg/dL (0.2 mg/dL) Urine Leukocyte Esterase Large (NEG) Urine RBC Occ /HPF (0-2) Urine WBC >40 /HPF (0-4) Urine Squamous Epithelial Cells Few /LPF Urine Bacteria Many /HPF (0-FEW) Urine Mucus Slight /LPF White Blood Count 4.6 x10^3/uL (4.0-11.0) Red Blood Count 4.00 x10^6/uL (3.50-5.40) Hemoglobin 10.4 g/dL (12.0-15.5) Hematocrit 32.1 % (36.0-47.0) Mean Corpuscular Volume 80 fL (79-100) Mean Corpuscular Hemoglobin 26 pg (25-35) Mean Corpuscular Hemoglobin Concent 32 g/dL (31-37) Red Cell Distribution Width 18.5 % (11.5-14.5) Platelet Count 172 x10^3/uL (140-400) Neutrophils (%) (Auto) 72 % (31-73) Lymphocytes (%) (Auto) 17 % (24-48) Monocytes (%) (Auto) 9 % (0-9) Eosinophils (%) (Auto) 2 % (0-3) Basophils (%) (Auto) 0 % (0-3) Neutrophils # (Auto) 3.3 x10^3uL (1.8-7.7) Lymphocytes # (Auto) 0.8 x10^3/uL (1.0-4.8) Monocytes # (Auto) 0.4 x10^3/uL (0.0-1.1) Eosinophils # (Auto) 0.1 x10^3/uL (0.0-0.7) Basophils # (Auto) 0.0 x10^3/uL (0.0-0.2) Sodium Level 141 mmol/L (136-145) Potassium Level 4.0 mmol/L (3.5-5.1) Chloride Level 101 mmol/L (98-107) Carbon Dioxide Level 33 mmol/L (21-32) Anion Gap 7 (6-14) Blood Urea Nitrogen 20 mg/dL (7-20) Creatinine 0.9 mg/dL (0.6-1.0) Estimated GFR (Cockcroft-Gault) 62.6 BUN/Creatinine Ratio 22 (6-20) Glucose Level 86 mg/dL (70-99) Calcium Level 8.9 mg/dL (8.5-10.1) Total Bilirubin 0.9 mg/dL (0.2-1.0) Aspartate Amino Transf (AST/SGOT) 8 U/L (15-37) Alanine Aminotransferase (ALT/SGPT) 19 U/L (14-59) Alkaline Phosphatase 80 U/L (46-116) Total Protein 6.5 g/dL (6.4-8.2) Albumin 3.1 g/dL (3.4-5.0) Albumin/Globulin Ratio 0.9 (1.0-1.7) Laboratory Tests Test 05/25/18 12:35 05/25/18 13:05 Urine Collection Type Unknown Urine Color Yellow Urine Clarity Cloudy Urine pH 8.5 Urine Specific [place] 1.015 Urine Protein Negative mg/dL (NEG-TRACE) Urine Glucose (UA) Negative mg/dL (NEG) Urine Ketones (Stick) Negative mg/dL (NEG) Urine Blood Negative (NEG) Urine Nitrite Positive (NEG) Urine Bilirubin Negative (NEG) Urine Urobilinogen Dipstick 1.0 mg/dL (0.2 mg/dL) Urine Leukocyte Esterase Large (NEG) Urine RBC Occ /HPF (0-2) Urine WBC >40 /HPF (0-4) Urine Squamous Epithelial Cells Few /LPF Urine Bacteria Many /HPF (0-FEW) Urine Mucus Slight /LPF White Blood Count 4.6 x10^3/uL (4.0-11.0) Red Blood Count 4.00 x10^6/uL (3.50-5.40) Hemoglobin 10.4 g/dL (12.0-15.5) Hematocrit 32.1 % (36.0-47.0) Mean Corpuscular Volume 80 fL (79-100) Mean Corpuscular Hemoglobin 26 pg (25-35) Mean Corpuscular Hemoglobin Concent 32 g/dL (31-37) Red Cell Distribution Width 18.5 % (11.5-14.5) Platelet Count 172 x10^3/uL (140-400) Neutrophils (%) (Auto) 72 % (31-73) Lymphocytes (%) (Auto) 17 % (24-48) Monocytes (%) (Auto) 9 % (0-9) Eosinophils (%) (Auto) 2 % (0-3) Basophils (%) (Auto) 0 % (0-3) Neutrophils # (Auto) 3.3 x10^3uL (1.8-7.7) Lymphocytes # (Auto) 0.8 x10^3/uL (1.0-4.8) Monocytes # (Auto) 0.4 x10^3/uL (0.0-1.1) Eosinophils # (Auto) 0.1 x10^3/uL (0.0-0.7) Basophils # (Auto) 0.0 x10^3/uL (0.0-0.2) Sodium Level 141 mmol/L (136-145) Potassium Level 4.0 mmol/L (3.5-5.1) Chloride Level 101 mmol/L (98-107) Carbon Dioxide Level 33 mmol/L (21-32) Anion Gap 7 (6-14) Blood Urea Nitrogen 20 mg/dL (7-20) Creatinine 0.9 mg/dL (0.6-1.0) Estimated GFR (Cockcroft-Gault) 62.6 BUN/Creatinine Ratio 22 (6-20) Glucose Level 86 mg/dL (70-99) Calcium Level 8.9 mg/dL (8.5-10.1) Total Bilirubin 0.9 mg/dL (0.2-1.0) Aspartate Amino Transf (AST/SGOT) 8 U/L (15-37) Alanine Aminotransferase (ALT/SGPT) 19 U/L (14-59) Alkaline Phosphatase 80 U/L (46-116) Total Protein 6.5 g/dL (6.4-8.2) Albumin 3.1 g/dL (3.4-5.0) Albumin/Globulin Ratio 0.9 (1.0-1.7) Medications Current Medications Fentanyl Citrate (Fentanyl 2ml Vial) 50 mcg PRN Q2HR PRN IV PAIN Last administered on 05/25/18 15:41; Start 05/25/18 at 11:45 Amlodipine Besylate (Norvasc) 5 mg DAILY PO Last administered on 05/26/18 08: 52; Start 05/25/18 at 12:30 Clonazepam (KlonoPIN) 1 mg PRN TID PRN PO ANXIETY; Start 05/25/18 at 11:45 Gabapentin (Neurontin) 100 mg TID PO Last administered on 05/26/18 08:52; Start 05/25/18 at 14:00 Acetaminophen/ Hydrocodone Bitart (Lortab 10/325) 1 tab PRN Q4HRS PRN PO PAIN Last administered on 05/26/18 08:53; Start 05/25/18 at 11:45 Albuterol Sulfate (Ventolin Neb Soln) 2.5 mg PRN Q6HRS PRN NEB SHORTNESS OF BREATH; Start 05/25/18 at 11:45 Losartan Potassium (Cozaar) 50 mg DAILY PO Last administered on 05/26/18 08:52 ; Start 05/25/18 at 12:30 Sertraline HCl (Zoloft) 50 mg DAILY PO Last administered on 05/26/18 08:52; Start 05/25/18 at 12:30 Trazodone HCl (Desyrel) 50 mg QHS PO ; Start 05/25/18 at 21:00 Pantoprazole Sodium (Protonix) 40 mg DAILYAC PO Last administered on 05/26/18 08:51; Start 05/25/18 at 12:30 Active Scripts Active Hydrocodone-Apap 10-325 (Hydrocodone Bit/Acetaminophen) 1 Tab Tablet 1 Tab PO Q4H PRN 30 Days Gabapentin (Gabapentin) 100 Mg Capsule 100 Mg PO TID 30 Days Reported Prilosec Otc (Omeprazole Magnesium) 20 Mg Tablet.dr 1 Tab PO DAILY Norvasc (Amlodipine Besylate) 5 Mg Tablet 1 Tab PO DAILY Losartan Potassium 50 Mg Tablet 50 Mg PO DAILY Trazodone Hcl 50 Mg Tablet 1 Tab PO QHS Sertraline Hcl 50 Mg Tablet 50 Mg PO DAILY Duoneb 0.5-3(2.5) Mg/3 Ml (Albuterol/Ipratropium) 3 Ml Ampul.neb 3 Ml IH PRN QID PRN Clonazepam 1 Mg Tablet 1 Tab PO PRN TID PRN Vitals/I & O Vital Sign - Last 24 Hours 05/25/18 05/25/18 05/25/18 05/25/18 10:30 11:00 11:58 12:51 Temp 97.9 97.9 Pulse 57 57 Resp 20 16 B/P (MAP) 103/55 (71) 103/55 Pulse Ox 95 O2 Delivery Room Air Nasal Cannula Room Air O2 Flow Rate 2.0 05/25/18 05/25/18 05/25/18 05/25/18 12:51 14:18 15:00 15:39 Temp 98.1 98.1 Pulse 57 64 Resp 16 18 16 B/P (MAP) 103/55 127/58 (81) O2 Delivery Nasal Cannula Nasal Cannula Nasal Cannula O2 Flow Rate 2.0 1.0 2.0 05/25/18 05/25/18 05/25/18 05/26/18 15:41 17:40 19:00 03:00 Temp 98.4 99.4 98.4 99.4 Pulse 60 78 Resp 16 16 18 18 B/P (MAP) 106/43 (64) 116/91 (99) Pulse Ox 96 92 O2 Delivery Nasal Cannula Nasal Cannula Nasal Cannula Nasal Cannula O2 Flow Rate 2.0 2.0 1.0 1.0 05/26/18 05/26/18 05/26/18 05/26/18 07:15 08:52 08:52 08:53 Temp 98.0 98.0 Pulse 57 57 57 Resp 18 B/P (MAP) 110/47 (68) 110/47 110/47 Pulse Ox 95 95 O2 Delivery Nasal Cannula Room Air Intake and Output 05/25/18 05/25/18 05/26/18 15:00 23:00 07:00 Intake Total 120 ml Balance 120 ml LIDIA CONNELLY MD May 26, 2018 10:15
[2018-05-26 11:11] VITALS: BP 105/47
[2018-05-26] MEDS: CYCLOBENZAPRINE 10 MG TABLET. PO PRN (11:55)
--- NOTE | 2018-05-26 12:22 | NUR ---
SW following for discharge planning. Discussed with RN. RN advised pt having pain clinic tomorrow, RN ordering PT/OT. SW will continue to follow.
--- NOTE | 2018-05-26 13:34 | PDOC ---
Provider Note Provider Note Patient seen at 1215 c/o back pain patient was seen by Dr. Bardales 04/30/18 as an Inpatient poor surgical candidate in that she would require an instrumented fusion and decompression which would be problematic based on her size She is scheduled for second LESI tomorrow agree with conservative treatments GB KELLEY APRN May 26, 2018 13:34
[2018-05-26] MEDS: fentaNYL PF VIAL 100 MCG/2 ML VIAL IV PRN (14:23)
[2018-05-26] MEDS: DOXYCYCLINE HYCLATE 100 MG TABLET PO SCH ×2 (14:23→21:49)
[2018-05-26 15:03] VITALS: BP 108/48
--- NOTE | 2018-05-26 17:15 | PDOC ---
PROGRESS NOTES Assessment Assessment Severe lower back pain, acute on chronic. Disc bulging. L3-L4 moderate to severe stenosis. UTI. Obesity. No cord compression or nerve roots impingement on L-spine MRI. RECOMMENDATIONS/PLAN: Pain control. Consulted Pain Clinic, will provide epidural injection on 05/27/18. Consulted Dr. Fofana. OT/PT. Treat medical diseases. Weight reduction. HISTORY OF THE PRESENT ILLNESS: 68-y-old female patient with above medical diseases and lower back pain since . She received injection in Pain Clinic stating helped some degree of her pain. Her pain recurred in the past 2 to 3 days to the point she was unable to move or mobile. No focaled sensory or motor deficits. No urinary or bowel incontinence or retention. Past Medical History Past Medical History: Diverticulitis, Diverticulosis Cardiovascular: HTN Pulmonary: Asthma Psych: Anxiet PAST SURGICAL HISTORY: Breast biopsy, cholecystectomy, total knee replacement, tonsillectomy and drainage with diverticular abscess. ERCP+sphincterotomy. Findings: 1. Dilated common bile duct up to the ampulla 2. Papillary stenosis 3. Status post sphincterotomy and balloon swipe FAMILY HISTORY: Positive for cancer, coronary artery disease, diabetes, hypertension, and CVA. SOCIAL HISTORY: She does not smoke, drink alcohol or use recreational drugs. Psych: Anxiety ALCOHOL: none Drugs: None Allergies Coded Allergies: Penicillins (Verified Allergy, Intermediate, 12/22/14) clindamycin (Verified Allergy, Intermediate, 12/22/14) codeine (Verified Adverse Reaction, Intermediate, Itching;, 04/29/18) morphine (Verified Adverse Reaction, Mild, nausea/vomiting, 04/29/18) ROS General: No: Chills, Night Sweats, Fatigue, Malaise, Appetite, Other PSYCHOLOGICAL ROS: No: Anxiety, Behavioral Disorder, Concentration difficultie , Decreased libido, Depression, Disorientation, Hallucinations, Hostility, Irritablity, Memory difficulties, Mood Swings, Obsessive thoughts, Physical abuse, Sexual abuse, Sleep disturbances, Suicidal ideation, Other Eyes: No Blurry vision, No Decreased vision, No Double vision, No Dry eyes, No Excessive tearing, No Eye Pain, No Itchy Eyes, No Loss of vision, No Photophobia , No Scotomata, No Uses contacts, No Uses glasses, No Other HEENT: No: Heacaches, Visual Changes, Hearing change, Nasal congestion, Nasal discharge, Oral lesions, Sinus pain, Sore Throat, Epistaxis, Sneezing, Snoring, Tinnitus, Vertigo, Vocal changes, Other ALLERGY AND IMMUNOLOGY: No: Hives, Insect Bite Sensitivity, Itchy/Watery Eyes, Nasal Congestion, Post Nasal Drip, Seasonal Allergies, Other Hematological and Lymphatic: No: Bleeding Problems, Blood Clots, Blood Transfusions, Brusing, Night Sweats, Pallor, Swollen Lymph Nodes, Other Cardiovascular: No Chest Pain, No Palpitations, No Orthopnea, No Paroxysmal Noc. Dyspnea, No Edema, No Lt Headedness, No Other Gastrointestinal: Yes Constipation Genitourinary: No Dysuria, No Frequency, No Incontinence, No Hematuria, No Retention, No Discharge, No Urgency, No Pain, No Flank Pain, No Other, No , No , No , No , No , No , No Musculoskeletal: Yes Gait Disturbance Neurological: Yes Gait Disturbance Skin: No Dry Skin, No Eczema, No Hair Changes, No Lumps, No Mole Changes, No Mottling, No Nail Changes, No Pruritus, No Rash, No Skin Lesion Changes, No Other, No Acne MEDICATIONS: Refer to [facility] PHYSICAL EXAMINATION: General appearance is in subacute distress. HEENT: Normocephalic and nontraumatic. Eyes, nose, ears, and throat are unremarkable. Neck is supple. No lymphadenopathy. No crepitus. Cardiovascular: S1, S2, regular rate and rhythm. Pulmonary: Clear to auscultation bilaterally. Abdomen: Bowel sounds are positive. Abdomen is soft, nontender, and nondistended. Extremities: No rash, lesions, or edema. Restriction of range of motion due to back pain. NEUROLOGICAL EXAMINATION: Alert Oriented to time, place and person. PERRL. EOMI. CN: no focal findings. Muscle tone: within normal. Muscle strength: 4+ DTR: 1- due to obesity. Plantar reflex: Flexor response bilaterally Gait: not examined in bed. Sensory exam: no abnormal findings. No cerebellar signs elicited. F-T-N test fine. Objective Objective Vital Signs Date Time Temp Pulse Resp B/P (MAP) Pulse Ox O2 Delivery O2 Flow Rate FiO2 05/26/18 14:23 95 Room Air 05/26/18 11:11 98.9 64 18 105/47 (66) 98.9 05/26/18 10:00 1.0 Intake and Output 05/26/18 06:59 Intake Total 120 ml Balance 120 ml Intake Oral 120 ml # Voids 6 Vitals Signs Vitals VS - Last 72 Hours, by Label Date Time Temp Pulse Resp B/P (MAP) Pulse Ox O2 Delivery O2 Flow Rate FiO2 05/26/18 14:23 95 Room Air 05/26/18 13:49 Room Air 05/26/18 11:11 98.9 64 18 105/47 (66) 95 Room Air 98.9 05/26/18 10:00 95 Nasal Cannula 1.0 05/26/18 08:53 95 Room Air 05/26/18 08:52 57 110/47 05/26/18 08:52 57 110/47 05/26/18 07:15 98.0 57 18 110/47 (68) 95 Nasal Cannula 98.0 05/26/18 03:00 99.4 78 18 116/91 (99) 92 Nasal Cannula 1.0 99.4 05/25/18 19:00 98.4 60 18 106/43 (64) 96 Nasal Cannula 1.0 98.4 05/25/18 17:40 16 Nasal Cannula 2.0 05/25/18 15:41 16 Nasal Cannula 2.0 05/25/18 15:39 16 05/25/18 15:00 98.1 64 18 127/58 (81) Nasal Cannula 1.0 98.1 05/25/18 14:18 16 Nasal Cannula 2.0 05/25/18 12:51 57 103/55 05/25/18 12:51 57 103/55 05/25/18 11:58 16 Room Air 05/25/18 11:00 Nasal Cannula 2.0 05/25/18 10:30 97.9 57 20 103/55 (71) 95 Room Air 97.9 Medication Medications Current Medications Cyclobenzaprine HCl (Flexeril) 10 mg PRN Q12HR PRN PO MUSCLE SPASMS Last administered on 05/26/18at 11:55; Start 05/26/18 at 11:15 Doxycycline Hyclate (Vibra-Tab) 100 mg BID PO Last administered on 05/26/18at 14 :23; Start 05/26/18 at 13:00 Trazodone HCl (Desyrel) 50 mg QHS PO ; Start 05/25/18 at 21:00 Comment Review of Relevant I have reviewed the following items juju (where applicable) has been applied. ANGIE SIM MD May 26, 2018 17:15
[2018-05-26 19:00] VITALS: BP 104/47
--- NOTE | 2018-05-26 19:33 | NUR ---
This nurse paged MD for new orders for IV pain medication, for transportation and for PT/OT. Orders received will d/c fentanyl. Discussed with fire extinguisher chargerKourtney about need for IV.
[2018-05-26] MEDS: traZODone 50 MG TABLET. PO SCH (21:49)
[2018-05-26 23:00] VITALS: BP 139/49
[2018-05-27] MEDS: CYCLOBENZAPRINE 10 MG TABLET. PO PRN ×2 (00:03→13:07)
[2018-05-27 03:00] VITALS: BP 106/61
[2018-05-27] MEDS: HYDROcodone/APAP 10/325 1 TAB TABLET PO PRN ×5 (03:11→21:41)
[2018-05-27 04:18] LABS: BASO % 1 % (0-3); EOS # 0.2 x10^3/uL (0.0-0.7); EOS % 4 % (0-3); HEMATOCRIT 29.9 % (36.0-47.0); HEMOGLOBIN 9.6 g/dL (12.0-15.5); LYMPH # 1.4 x10^3/uL (1.0-4.8); LYMPH % 29 % (24-48); MEAN CORPUSCULAR HEMOGLOBIN 26 pg (25-35); MEAN CORPUSCULAR HGB CONC 32 g/dL (31-37); MEAN CORPUSCULAR VOLUME 81 fL (79-100); MONO # 0.4 x10^3/uL (0.0-1.1); MONO % 9 % (0-9); NEUT # 2.8 x10^3uL (1.8-7.7); NEUT % 58 % (31-73); PLATELET COUNT 186 x10^3/uL (140-400); RED BLOOD COUNT 3.71 x10^6/uL (3.50-5.40); RED CELL DISTRIBUTION WIDTH 19.3 % (11.5-14.5); WHITE BLOOD COUNT 4.8 x10^3/uL (4.0-11.0)
[2018-05-27 04:33] LABS: CALCIUM 9.1 mg/dL (8.5-10.1); GFR 55.5
[2018-05-27] MEDS: PANTOPRAZOLE 40 MG TABLET.DR. PO SCH (07:11)
[2018-05-27] MEDS: HYDROmorphone 2 MG/ML VIAL IV PRN ×2 (07:12→14:37)
[2018-05-27] MEDS ORDERED: methylPREDNISolone ACETATE 40 MG/ML VIAL. ONE (07:54)
[2018-05-27] MEDS ORDERED: methylPREDNISolone ACETATE 80 MG/ML VIAL. ONE (07:55)
[2018-05-27] MEDS ORDERED: IOHEXOL 180 MG/ML 10 ML VIAL. ONE (07:55)
[2018-05-27] MEDS: GABAPENTIN 100 MG CAPSULE. PO SCH ×3 (08:48→21:40)
[2018-05-27] MEDS: DOXYCYCLINE HYCLATE 100 MG TABLET PO SCH ×2 (08:48→21:39)
[2018-05-27] MEDS: SERTRALINE 50 MG TABLET. PO SCH (08:49)
[2018-05-27] MEDS: LOSARTAN POTASSIUM 50 MG TABLET. PO SCH (08:51)
[2018-05-27] MEDS: amLODIPine BESYLATE 5 MG TABLET PO SCH (08:51)
[2018-05-27 08:52] VITALS: BP 111/51
[2018-05-27] MEDS ORDERED: BISACODYL 5 MG TABLET.DR. PO PRN (10:00)
--- NOTE | 2018-05-27 10:25 | PDOC ---
PROGRESS NOTES History of Present Illness History of Present Illness VTE Prophylaxis Ordered VTE Prophylaxis Devices: Yes VTE Pharmacological Prophylaxi: Yes Assessment/Plan Assessment/Plan Right LE numbness and tingling., INTRACTABLE PAIN Peripheral neuropathy. Chronic back pain. 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 moderate to severe central spinal canal stenosis at L3-4. Mild bilateral neural foraminal stenosis is seen L3-4. poor surgical candidate due to obesity DM. OA. Obesity. PLAN EDB TODAY IV PAIN CONTROL Neurology consult DR SINGER FOLLOWING JOHNNY;AX DAILY DVT PROPHYLAXIS CONT HOME MEDS PT/OT TRANSFER CARE TO DR ROSARIO, HER PCP NEUROSURGERY CONSULT poor surgical candidate Vitals Vitals Vital Signs Date Time Temp Pulse Resp B/P (MAP) Pulse Ox O2 Delivery O2 Flow Rate FiO2 05/27/18 08:52 97.5 67 18 111/51 (71) 96 Room Air 97.5 05/26/18 10:00 1.0 Physical Exam General: Alert, Oriented X3, Cooperative, No acute distress Heart: Regular rate, Normal S1, Normal S2, No murmurs Lungs: Clear Abdomen: Normal bowel sounds, Soft, No tenderness, No hepatosplenomegaly, Other (VERY OBESE, NO PALPABLE MASS) Extremities: No clubbing, No cyanosis Skin: No breakdown Labs LABS Laboratory Tests Test 05/27/18 03:25 White Blood Count 4.8 x10^3/uL (4.0-11.0) Red Blood Count 3.71 x10^6/uL (3.50-5.40) Hemoglobin 9.6 g/dL (12.0-15.5) Hematocrit 29.9 % (36.0-47.0) Mean Corpuscular Volume 81 fL (79-100) Mean Corpuscular Hemoglobin 26 pg (25-35) Mean Corpuscular Hemoglobin Concent 32 g/dL (31-37) Red Cell Distribution Width 19.3 % (11.5-14.5) Platelet Count 186 x10^3/uL (140-400) Neutrophils (%) (Auto) 58 % (31-73) Lymphocytes (%) (Auto) 29 % (24-48) Monocytes (%) (Auto) 9 % (0-9) Eosinophils (%) (Auto) 4 % (0-3) Basophils (%) (Auto) 1 % (0-3) Neutrophils # (Auto) 2.8 x10^3uL (1.8-7.7) Lymphocytes # (Auto) 1.4 x10^3/uL (1.0-4.8) Monocytes # (Auto) 0.4 x10^3/uL (0.0-1.1) Eosinophils # (Auto) 0.2 x10^3/uL (0.0-0.7) Basophils # (Auto) 0.0 x10^3/uL (0.0-0.2) Sodium Level 139 mmol/L (136-145) Potassium Level 4.0 mmol/L (3.5-5.1) Chloride Level 102 mmol/L (98-107) Carbon Dioxide Level 29 mmol/L (21-32) Anion Gap 8 (6-14) Blood Urea Nitrogen 28 mg/dL (7-20) Creatinine 1.0 mg/dL (0.6-1.0) Estimated GFR (Cockcroft-Gault) 55.5 Glucose Level 143 mg/dL (70-99) Calcium Level 9.1 mg/dL (8.5-10.1) Comment Review of Relevant I have reviewed the following items juju (where applicable) has been applied. Labs Laboratory Tests Test 05/25/18 12:35 05/25/18 13:05 05/27/18 03:25 Urine Collection Type Unknown Urine Color Yellow Urine Clarity Cloudy Urine pH 8.5 Urine Specific [place] 1.015 Urine Protein Negative mg/dL (NEG-TRACE) Urine Glucose (UA) Negative mg/dL (NEG) Urine Ketones (Stick) Negative mg/dL (NEG) Urine Blood Negative (NEG) Urine Nitrite Positive (NEG) Urine Bilirubin Negative (NEG) Urine Urobilinogen Dipstick 1.0 mg/dL (0.2 mg/dL) Urine Leukocyte Esterase Large (NEG) Urine RBC Occ /HPF (0-2) Urine WBC >40 /HPF (0-4) Urine Squamous Epithelial Cells Few /LPF Urine Bacteria Many /HPF (0-FEW) Urine Mucus Slight /LPF White Blood Count 4.6 x10^3/uL (4.0-11.0) 4.8 x10^3/uL (4.0-11.0) Red Blood Count 4.00 x10^6/uL (3.50-5.40) 3.71 x10^6/uL (3.50-5.40) Hemoglobin 10.4 g/dL (12.0-15.5) 9.6 g/dL (12.0-15.5) Hematocrit 32.1 % (36.0-47.0) 29.9 % (36.0-47.0) Mean Corpuscular Volume 80 fL (79-100) 81 fL (79-100) Mean Corpuscular Hemoglobin 26 pg (25-35) 26 pg (25-35) Mean Corpuscular Hemoglobin Concent 32 g/dL (31-37) 32 g/dL (31-37) Red Cell Distribution Width 18.5 % (11.5-14.5) 19.3 % (11.5-14.5) Platelet Count 172 x10^3/uL (140-400) 186 x10^3/uL (140-400) Neutrophils (%) (Auto) 72 % (31-73) 58 % (31-73) Lymphocytes (%) (Auto) 17 % (24-48) 29 % (24-48) Monocytes (%) (Auto) 9 % (0-9) 9 % (0-9) Eosinophils (%) (Auto) 2 % (0-3) 4 % (0-3) Basophils (%) (Auto) 0 % (0-3) 1 % (0-3) Neutrophils # (Auto) 3.3 x10^3uL (1.8-7.7) 2.8 x10^3uL (1.8-7.7) Lymphocytes # (Auto) 0.8 x10^3/uL (1.0-4.8) 1.4 x10^3/uL (1.0-4.8) Monocytes # (Auto) 0.4 x10^3/uL (0.0-1.1) 0.4 x10^3/uL (0.0-1.1) Eosinophils # (Auto) 0.1 x10^3/uL (0.0-0.7) 0.2 x10^3/uL (0.0-0.7) Basophils # (Auto) 0.0 x10^3/uL (0.0-0.2) 0.0 x10^3/uL (0.0-0.2) Sodium Level 141 mmol/L (136-145) 139 mmol/L (136-145) Potassium Level 4.0 mmol/L (3.5-5.1) 4.0 mmol/L (3.5-5.1) Chloride Level 101 mmol/L (98-107) 102 mmol/L (98-107) Carbon Dioxide Level 33 mmol/L (21-32) 29 mmol/L (21-32) Anion Gap 7 (6-14) 8 (6-14) Blood Urea Nitrogen 20 mg/dL (7-20) 28 mg/dL (7-20) Creatinine 0.9 mg/dL (0.6-1.0) 1.0 mg/dL (0.6-1.0) Estimated GFR (Cockcroft-Gault) 62.6 55.5 BUN/Creatinine Ratio 22 (6-20) Glucose Level 86 mg/dL (70-99) 143 mg/dL (70-99) Calcium Level 8.9 mg/dL (8.5-10.1) 9.1 mg/dL (8.5-10.1) Total Bilirubin 0.9 mg/dL (0.2-1.0) Aspartate Amino Transf (AST/SGOT) 8 U/L (15-37) Alanine Aminotransferase (ALT/SGPT) 19 U/L (14-59) Alkaline Phosphatase 80 U/L (46-116) Total Protein 6.5 g/dL (6.4-8.2) Albumin 3.1 g/dL (3.4-5.0) Albumin/Globulin Ratio 0.9 (1.0-1.7) Laboratory Tests Test 05/27/18 03:25 White Blood Count 4.8 x10^3/uL (4.0-11.0) Red Blood Count 3.71 x10^6/uL (3.50-5.40) Hemoglobin 9.6 g/dL (12.0-15.5) Hematocrit 29.9 % (36.0-47.0) Mean Corpuscular Volume 81 fL (79-100) Mean Corpuscular Hemoglobin 26 pg (25-35) Mean Corpuscular Hemoglobin Concent 32 g/dL (31-37) Red Cell Distribution Width 19.3 % (11.5-14.5) Platelet Count 186 x10^3/uL (140-400) Neutrophils (%) (Auto) 58 % (31-73) Lymphocytes (%) (Auto) 29 % (24-48) Monocytes (%) (Auto) 9 % (0-9) Eosinophils (%) (Auto) 4 % (0-3) Basophils (%) (Auto) 1 % (0-3) Neutrophils # (Auto) 2.8 x10^3uL (1.8-7.7) Lymphocytes # (Auto) 1.4 x10^3/uL (1.0-4.8) Monocytes # (Auto) 0.4 x10^3/uL (0.0-1.1) Eosinophils # (Auto) 0.2 x10^3/uL (0.0-0.7) Basophils # (Auto) 0.0 x10^3/uL (0.0-0.2) Sodium Level 139 mmol/L (136-145) Potassium Level 4.0 mmol/L (3.5-5.1) Chloride Level 102 mmol/L (98-107) Carbon Dioxide Level 29 mmol/L (21-32) Anion Gap 8 (6-14) Blood Urea Nitrogen 28 mg/dL (7-20) Creatinine 1.0 mg/dL (0.6-1.0) Estimated GFR (Cockcroft-Gault) 55.5 Glucose Level 143 mg/dL (70-99) Calcium Level 9.1 mg/dL (8.5-10.1) Medications Current Medications Fentanyl Citrate (Fentanyl 2ml Vial) 50 mcg PRN Q2HR PRN IV PAIN Last administered on 05/26/18at 14:23; Start 05/25/18 at 11:45; Stop 05/26/18 at 19:36 ; Status DC Amlodipine Besylate (Norvasc) 5 mg DAILY PO Last administered on 05/26/18at 08: 52; Start 05/25/18 at 12:30 Clonazepam (KlonoPIN) 1 mg PRN TID PRN PO ANXIETY; Start 05/25/18 at 11:45 Gabapentin (Neurontin) 100 mg TID PO Last administered on 05/27/18at 08:48; Start 05/25/18 at 14:00 Acetaminophen/ Hydrocodone Bitart (Lortab 10) 1 tab PRN Q4HRS PRN PO PAIN Last administered on 05/27/18 08:49; Start 05/25/18 at 11:45 Albuterol Sulfate (Ventolin Neb Soln) 2.5 mg PRN Q6HRS PRN NEB SHORTNESS OF BREATH; Start 05/25/18 at 11:45 Losartan Potassium (Cozaar) 50 mg DAILY PO Last administered on 05/26/18 08:52 ; Start 05/25/18 at 12:30 Sertraline HCl (Zoloft) 50 mg DAILY PO Last administered on 05/27/18 08:49; Start 05/25/18 at 12:30 Trazodone HCl (Desyrel) 50 mg QHS PO Last administered on 05/26/18 21:49; Start 05/25/18 at 21:00 Pantoprazole Sodium (Protonix) 40 mg DAILYAC PO Last administered on 05/27/18 07:11; Start 05/25/18 at 12:30 Cyclobenzaprine HCl (Flexeril) 10 mg PRN Q12HR PRN PO MUSCLE SPASMS Last administered on 05/27/18at 00:03; Start 05/26/18 at 11:15 Doxycycline Hyclate (Vibra-Tab) 100 mg BID PO Last administered on 05/27/18 08 :48; Start 05/26/18 at 13:00 Hydromorphone HCl (Dilaudid) 0.5 mg PRN Q3HRS PRN IV SEVERE PAIN Last administered on 05/27/18 07:12; Start 05/26/18 at 19:45 Methylprednisolone Acetate (DEPO-Medrol 40MG VIAL) 40 mg STK-MED ONCE .ROUTE ; Start 05/27/18 at 07:54; Stop 05/27/18 at 07:55; Status DC Iohexol (Omnipaque 180 Mg/ml) 10 ml STK-MED ONCE .ROUTE ; Start 05/27/18 at 07: 55; Stop 05/27/18 at 07:56; Status DC Methylprednisolone Acetate (DEPO-Medrol 80MG VIAL) 80 mg STK-MED ONCE .ROUTE ; Start 05/27/18 at 07:55; Stop 05/27/18 at 07:56; Status DC Docusate Sodium (Colace) 100 mg DAILY PO ; Start 05/28/18 at 09:00 Bisacodyl (Dulcolax Tab) 5 mg PRN DAILY PRN PO CONSTIPATION; Start 05/27/18 at 10:00 Active Scripts Active Hydrocodone-Apap 10-325 (Hydrocodone Bit/Acetaminophen) 1 Tab Tablet 1 Tab PO Q4H PRN 30 Days Gabapentin (Gabapentin) 100 Mg Capsule 100 Mg PO TID 30 Days Reported Prilosec Otc (Omeprazole Magnesium) 20 Mg Tablet.dr 1 Tab PO DAILY Norvasc (Amlodipine Besylate) 5 Mg Tablet 1 Tab PO DAILY Losartan Potassium 50 Mg Tablet 50 Mg PO DAILY Trazodone Hcl 50 Mg Tablet 1 Tab PO QHS Sertraline Hcl 50 Mg Tablet 50 Mg PO DAILY Duoneb 0.5-3(2.5) Mg/3 Ml (Albuterol/Ipratropium) 3 Ml Ampul.neb 3 Ml IH PRN QID PRN Clonazepam 1 Mg Tablet 1 Tab PO PRN TID PRN Vitals/I & O Vital Sign - Last 24 Hours 05/26/18 05/26/18 05/26/18 05/26/18 11:11 13:49 14:23 15:00 Temp 98.9 98.9 Pulse 64 Resp 18 B/P (MAP) 105/47 (66) Pulse Ox 95 95 96 O2 Delivery Room Air Room Air Room Air Room Air 05/26/18 05/26/18 05/26/18 05/26/18 15:00 15:03 19:00 19:30 Temp 97.3 98.2 97.3 98.2 Pulse 60 62 Resp 16 18 B/P (MAP) 108/48 (68) 104/47 (66) Pulse Ox 96 96 93 O2 Delivery Room Air Room Air Room Air 05/26/18 05/26/18 05/27/18 05/27/18 21:50 23:00 03:00 03:11 Temp 98.8 97.8 98.8 97.8 Pulse 66 68 Resp 18 18 16 B/P (MAP) 139/49 (79) 106/61 (76) Pulse Ox 94 96 O2 Delivery Room Air Room Air Room Air Room Air 05/27/18 05/27/18 05/27/18 05/27/18 04:28 07:12 08:30 08:49 Resp 18 O2 Delivery Room Air Room Air Room Air Room Air 05/27/18 05/27/18 05/27/18 08:51 08:51 08:52 Temp 97.5 97.5 Pulse 67 67 67 Resp 18 B/P (MAP) 111/51 111/51 111/51 (71) Pulse Ox 96 O2 Delivery Room Air Intake and Output 05/26/18 05/26/18 05/27/18 15:00 23:00 07:00 Intake Total 640 ml 240 ml Output Total 400 ml 200 ml Balance 640 ml -400 ml 40 ml LIDIA CONNELLY MD May 27, 2018 10:25
[2018-05-27 11:00] VITALS: BP 125/53
--- NOTE | 2018-05-27 12:50 | PDOC ---
PROGRESS NOTES Subjective Subjective She admits some easing of pain after lumbar epidural steroid injection this AM. Objective Objective Vital Signs Date Time Temp Pulse Resp B/P (MAP) Pulse Ox O2 Delivery O2 Flow Rate FiO2 05/27/18 11:00 98.3 65 20 125/53 (77) 97 Room Air 98.3 05/26/18 10:00 1.0 Intake and Output 05/27/18 07:00 Intake Total 880 ml Output Total 600 ml Balance 280 ml Intake Oral 880 ml Output Urine Total 600 ml # Voids 8 Physical Exam Physical Exam She is sitting up in bedside chair and does not valery to be in any distress. She continues with painfully limited lumbar spine ROM and tenderness to palpation over right sacroiliac joint. Plan Plan of Care To get her up as tolerated and to SNF when medically stable and to work on her constipation. Comment Review of Relevant I have reviewed the following items juju (where applicable) has been applied. Labs Laboratory Tests Test 05/25/18 13:05 05/27/18 03:25 White Blood Count 4.6 x10^3/uL (4.0-11.0) 4.8 x10^3/uL (4.0-11.0) Red Blood Count 4.00 x10^6/uL (3.50-5.40) 3.71 x10^6/uL (3.50-5.40) Hemoglobin 10.4 g/dL (12.0-15.5) 9.6 g/dL (12.0-15.5) Hematocrit 32.1 % (36.0-47.0) 29.9 % (36.0-47.0) Mean Corpuscular Volume 80 fL (79-100) 81 fL (79-100) Mean Corpuscular Hemoglobin 26 pg (25-35) 26 pg (25-35) Mean Corpuscular Hemoglobin Concent 32 g/dL (31-37) 32 g/dL (31-37) Red Cell Distribution Width 18.5 % (11.5-14.5) 19.3 % (11.5-14.5) Platelet Count 172 x10^3/uL (140-400) 186 x10^3/uL (140-400) Neutrophils (%) (Auto) 72 % (31-73) 58 % (31-73) Lymphocytes (%) (Auto) 17 % (24-48) 29 % (24-48) Monocytes (%) (Auto) 9 % (0-9) 9 % (0-9) Eosinophils (%) (Auto) 2 % (0-3) 4 % (0-3) Basophils (%) (Auto) 0 % (0-3) 1 % (0-3) Neutrophils # (Auto) 3.3 x10^3uL (1.8-7.7) 2.8 x10^3uL (1.8-7.7) Lymphocytes # (Auto) 0.8 x10^3/uL (1.0-4.8) 1.4 x10^3/uL (1.0-4.8) Monocytes # (Auto) 0.4 x10^3/uL (0.0-1.1) 0.4 x10^3/uL (0.0-1.1) Eosinophils # (Auto) 0.1 x10^3/uL (0.0-0.7) 0.2 x10^3/uL (0.0-0.7) Basophils # (Auto) 0.0 x10^3/uL (0.0-0.2) 0.0 x10^3/uL (0.0-0.2) Sodium Level 141 mmol/L (136-145) 139 mmol/L (136-145) Potassium Level 4.0 mmol/L (3.5-5.1) 4.0 mmol/L (3.5-5.1) Chloride Level 101 mmol/L (98-107) 102 mmol/L (98-107) Carbon Dioxide Level 33 mmol/L (21-32) 29 mmol/L (21-32) Anion Gap 7 (6-14) 8 (6-14) Blood Urea Nitrogen 20 mg/dL (7-20) 28 mg/dL (7-20) Creatinine 0.9 mg/dL (0.6-1.0) 1.0 mg/dL (0.6-1.0) Estimated GFR (Cockcroft-Gault) 62.6 55.5 BUN/Creatinine Ratio 22 (6-20) Glucose Level 86 mg/dL (70-99) 143 mg/dL (70-99) Calcium Level 8.9 mg/dL (8.5-10.1) 9.1 mg/dL (8.5-10.1) Total Bilirubin 0.9 mg/dL (0.2-1.0) Aspartate Amino Transf (AST/SGOT) 8 U/L (15-37) Alanine Aminotransferase (ALT/SGPT) 19 U/L (14-59) Alkaline Phosphatase 80 U/L (46-116) Total Protein 6.5 g/dL (6.4-8.2) Albumin 3.1 g/dL (3.4-5.0) Albumin/Globulin Ratio 0.9 (1.0-1.7) Laboratory Tests Test 05/27/18 03:25 White Blood Count 4.8 x10^3/uL (4.0-11.0) Red Blood Count 3.71 x10^6/uL (3.50-5.40) Hemoglobin 9.6 g/dL (12.0-15.5) Hematocrit 29.9 % (36.0-47.0) Mean Corpuscular Volume 81 fL (79-100) Mean Corpuscular Hemoglobin 26 pg (25-35) Mean Corpuscular Hemoglobin Concent 32 g/dL (31-37) Red Cell Distribution Width 19.3 % (11.5-14.5) Platelet Count 186 x10^3/uL (140-400) Neutrophils (%) (Auto) 58 % (31-73) Lymphocytes (%) (Auto) 29 % (24-48) Monocytes (%) (Auto) 9 % (0-9) Eosinophils (%) (Auto) 4 % (0-3) Basophils (%) (Auto) 1 % (0-3) Neutrophils # (Auto) 2.8 x10^3uL (1.8-7.7) Lymphocytes # (Auto) 1.4 x10^3/uL (1.0-4.8) Monocytes # (Auto) 0.4 x10^3/uL (0.0-1.1) Eosinophils # (Auto) 0.2 x10^3/uL (0.0-0.7) Basophils # (Auto) 0.0 x10^3/uL (0.0-0.2) Sodium Level 139 mmol/L (136-145) Potassium Level 4.0 mmol/L (3.5-5.1) Chloride Level 102 mmol/L (98-107) Carbon Dioxide Level 29 mmol/L (21-32) Anion Gap 8 (6-14) Blood Urea Nitrogen 28 mg/dL (7-20) Creatinine 1.0 mg/dL (0.6-1.0) Estimated GFR (Cockcroft-Gault) 55.5 Glucose Level 143 mg/dL (70-99) Calcium Level 9.1 mg/dL (8.5-10.1) Medications Current Medications Fentanyl Citrate (Fentanyl 2ml Vial) 50 mcg PRN Q2HR PRN IV PAIN Last administered on 05/26/18 14:23; Start 05/25/18 at 11:45; Stop 05/26/18 at 19:36 ; Status DC Amlodipine Besylate (Norvasc) 5 mg DAILY PO Last administered on 05/26/18 08: 52; Start 05/25/18 at 12:30 Clonazepam (KlonoPIN) 1 mg PRN TID PRN PO ANXIETY; Start 05/25/18 at 11:45 Gabapentin (Neurontin) 100 mg TID PO Last administered on 05/27/18 08:48; Start 05/25/18 at 14:00 Acetaminophen/ Hydrocodone Bitart (Lortab 10/325) 1 tab PRN Q4HRS PRN PO PAIN Last administered on 05/27/18 08:49; Start 05/25/18 at 11:45 Albuterol Sulfate (Ventolin Neb Soln) 2.5 mg PRN Q6HRS PRN NEB SHORTNESS OF BREATH; Start 05/25/18 at 11:45 Losartan Potassium (Cozaar) 50 mg DAILY PO Last administered on 05/26/18 08:52 ; Start 05/25/18 at 12:30 Sertraline HCl (Zoloft) 50 mg DAILY PO Last administered on 05/27/18 08:49; Start 05/25/18 at 12:30 Trazodone HCl (Desyrel) 50 mg QHS PO Last administered on 05/26/18 21:49; Start 05/25/18 at 21:00 Pantoprazole Sodium (Protonix) 40 mg DAILYAC PO Last administered on 05/27/18 07:11; Start 05/25/18 at 12:30 Cyclobenzaprine HCl (Flexeril) 10 mg PRN Q12HR PRN PO MUSCLE SPASMS Last administered on 05/27/18at 00:03; Start 05/26/18 at 11:15 Doxycycline Hyclate (Vibra-Tab) 100 mg BID PO Last administered on 05/27/18at 08 :48; Start 05/26/18 at 13:00 Hydromorphone HCl (Dilaudid) 0.5 mg PRN Q3HRS PRN IV SEVERE PAIN Last administered on 05/27/18at 07:12; Start 05/26/18 at 19:45 Methylprednisolone Acetate (DEPO-Medrol 40MG VIAL) 40 mg STK-MED ONCE .ROUTE ; Start 05/27/18 at 07:54; Stop 05/27/18 at 07:55; Status DC Iohexol (Omnipaque 180 Mg/ml) 10 ml STK-MED ONCE .ROUTE ; Start 05/27/18 at 07: 55; Stop 05/27/18 at 07:56; Status DC Methylprednisolone Acetate (DEPO-Medrol 80MG VIAL) 80 mg STK-MED ONCE .ROUTE ; Start 05/27/18 at 07:55; Stop 05/27/18 at 07:56; Status DC Docusate Sodium (Colace) 100 mg DAILY PO ; Start 05/28/18 at 09:00 Bisacodyl (Dulcolax Tab) 5 mg PRN DAILY PRN PO CONSTIPATION Last administered on 05/27/18at 10:43; Start 05/27/18 at 10:00 Polyethylene Glycol (miraLAX PACKET) 17 gm DAILY PO ; Start 05/27/18 at 13:00 Active Scripts Active Hydrocodone-Apap 10-325 (Hydrocodone Bit/Acetaminophen) 1 Tab Tablet 1 Tab PO Q4H PRN 30 Days Gabapentin (Gabapentin) 100 Mg Capsule 100 Mg PO TID 30 Days Reported Prilosec Otc (Omeprazole Magnesium) 20 Mg Tablet.dr 1 Tab PO DAILY Norvasc (Amlodipine Besylate) 5 Mg Tablet 1 Tab PO DAILY Losartan Potassium 50 Mg Tablet 50 Mg PO DAILY Trazodone Hcl 50 Mg Tablet 1 Tab PO QHS Sertraline Hcl 50 Mg Tablet 50 Mg PO DAILY Duoneb 0.5-3(2.5) Mg/3 Ml (Albuterol/Ipratropium) 3 Ml Ampul.neb 3 Ml IH PRN QID PRN Clonazepam 1 Mg Tablet 1 Tab PO PRN TID PRN Vitals/I & O Vital Sign - Last 24 Hours 05/26/18 05/26/18 05/26/18 05/26/18 13:49 14:23 15:00 15:00 Pulse Ox 95 96 96 O2 Delivery Room Air Room Air Room Air 05/26/18 05/26/18 05/26/18 05/26/18 15:03 19:00 19:30 21:50 Temp 97.3 98.2 97.3 98.2 Pulse 60 62 Resp 16 18 B/P (MAP) 108/48 (68) 104/47 (66) Pulse Ox 96 93 O2 Delivery Room Air Room Air Room Air Room Air 05/26/18 05/27/18 05/27/18 05/27/18 23:00 03:00 03:11 04:28 Temp 98.8 97.8 98.8 97.8 Pulse 66 68 Resp 18 18 16 18 B/P (MAP) 139/49 (79) 106/61 (76) Pulse Ox 94 96 O2 Delivery Room Air Room Air Room Air 05/27/18 05/27/18 05/27/18 05/27/18 07:12 08:30 08:49 08:51 Pulse 67 B/P (MAP) 111/51 O2 Delivery Room Air Room Air Room Air 05/27/18 05/27/18 05/27/18 05/27/18 08:51 08:52 10:44 11:00 Temp 97.5 98.3 97.5 98.3 Pulse 67 67 65 Resp 18 20 B/P (MAP) 111/51 111/51 (71) 125/53 (77) Pulse Ox 96 97 O2 Delivery Room Air Room Air Room Air Intake and Output 05/26/18 05/26/18 05/27/18 15:00 23:00 07:00 Intake Total 640 ml 240 ml Output Total 400 ml 200 ml Balance 640 ml -400 ml 40 ml SHEYLA SINGER MD May 27, 2018 12:50
[2018-05-27] MEDS: POLYETHYLENE GLYCOL 3350 17 GM PACKET. PO SCH (13:07)
--- NOTE | 2018-05-27 14:29 | NUR ---
SW following for discharge planning. Discussed with RN. SW met with pt, to discuss discharge planning. PT recommending SNU, pt is agreeable to going and would like referral sent to [place]. RN notified. SW will continue to follow.
--- NOTE | 2018-05-27 14:30 | NUR ---
Pt working with PT, Dilaudid administered per orders to help with pain.
--- NOTE | 2018-05-27 14:40 | PDOC ---
SUBJECTIVE Subjective low back and right leg pain OBJECTIVE Objective 68 yo female C/O low back and right LE pain- started on 04/12/2018 without any specific injury having difficulty to sit. She has used a walker ever since then. The patient reports radiation of pain to her right lower extremity with associated tingling and numbness. She reports some problems with constipation, but denies any difficulty with bladder control, had an MRI scan of her lumbar spine, which revealed multilevel degenerative disk disease and degenerative joint disease of lumbar vertebrae with some degree of central spinal stenosis and neural foraminal compromise. She has undergone epidural steroid injection one month ago without any lasting help. The patient reports continued pain and hydrocodone is not helping. Vital Signs Vital Signs Date Time Temp Pulse Resp B/P (MAP) Pulse Ox O2 Delivery O2 Flow Rate FiO2 05/27/18 14:15 Room Air 05/27/18 13:07 Room Air 05/27/18 11:00 98.3 65 20 125/53 (77) 97 Room Air 98.3 05/27/18 08:52 97.5 67 18 111/51 (71) 96 Room Air 97.5 05/27/18 08:51 67 111/51 05/27/18 08:51 67 111/51 05/27/18 08:49 Room Air 05/27/18 08:30 Room Air 05/27/18 07:12 Room Air 05/27/18 04:28 18 05/27/18 03:11 16 Room Air 05/27/18 03:00 97.8 68 18 106/61 (76) 96 Room Air 97.8 05/26/18 23:00 98.8 66 18 139/49 (79) 94 Room Air 98.8 05/26/18 21:50 Room Air 05/26/18 19:30 Room Air 05/26/18 19:00 98.2 62 18 104/47 (66) 93 Room Air 98.2 05/26/18 15:03 97.3 60 16 108/48 (68) 96 Room Air 97.3 05/26/18 15:00 96 05/26/18 15:00 96 Room Air I & O Intake and Output 05/27/18 07:00 Intake Total 880 ml Output Total 600 ml Balance 280 ml Intake Oral 880 ml Output Urine Total 600 ml # Voids 8 PHYSICAL EXAM Physical Exam A&O x 3 appropriate BS= bilat Heart S1,S2 clear LE DTR's - 1+/4+ Motor 4/5 and equal bilat. 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 lumbar paraspinuos ASSESSMENT/PLAN Assessment/Plan Plan: Options / risks discussed, will proceed with [facility] today COMMENT Lab Laboratory Tests Test 05/27/18 03:25 White Blood Count 4.8 x10^3/uL (4.0-11.0) Red Blood Count 3.71 x10^6/uL (3.50-5.40) Hemoglobin 9.6 g/dL (12.0-15.5) Hematocrit 29.9 % (36.0-47.0) Mean Corpuscular Volume 81 fL (79-100) Mean Corpuscular Hemoglobin 26 pg (25-35) Mean Corpuscular Hemoglobin Concent 32 g/dL (31-37) Red Cell Distribution Width 19.3 % (11.5-14.5) Platelet Count 186 x10^3/uL (140-400) Neutrophils (%) (Auto) 58 % (31-73) Lymphocytes (%) (Auto) 29 % (24-48) Monocytes (%) (Auto) 9 % (0-9) Eosinophils (%) (Auto) 4 % (0-3) Basophils (%) (Auto) 1 % (0-3) Neutrophils # (Auto) 2.8 x10^3uL (1.8-7.7) Lymphocytes # (Auto) 1.4 x10^3/uL (1.0-4.8) Monocytes # (Auto) 0.4 x10^3/uL (0.0-1.1) Eosinophils # (Auto) 0.2 x10^3/uL (0.0-0.7) Basophils # (Auto) 0.0 x10^3/uL (0.0-0.2) Sodium Level 139 mmol/L (136-145) Potassium Level 4.0 mmol/L (3.5-5.1) Chloride Level 102 mmol/L (98-107) Carbon Dioxide Level 29 mmol/L (21-32) Anion Gap 8 (6-14) Blood Urea Nitrogen 28 mg/dL (7-20) Creatinine 1.0 mg/dL (0.6-1.0) Estimated GFR (Cockcroft-Gault) 55.5 Glucose Level 143 mg/dL (70-99) Calcium Level 9.1 mg/dL (8.5-10.1) ISABELLA KLEIN MD May 27, 2018 14:40
[2018-05-27 15:00] VITALS: BP 117/64
--- NOTE | 2018-05-27 17:16 | PDOC ---
PROGRESS NOTES Assessment Assessment Severe lower back pain, acute on chronic. Disc bulging. L3-L4 moderate to severe stenosis. UTI. Obesity. No cord compression or nerve roots impingement on L-spine MRI. RECOMMENDATIONS/PLAN: Pain control. Consulted [facility], epidural injection on 05/27/18. Consulted Dr. Fofana. OT/PT. Treat medical diseases. Weight reduction. FU with PCP, Pain Clinic and Dr. Fofana. HISTORY OF THE PRESENT ILLNESS: 68-y-old female patient with above medical diseases and lower back pain since . She received injection in Pain Clinic stating helped some degree of her pain. Her pain recurred in the past 2 to 3 days to the point she was unable to move or mobile. No focaled sensory or motor deficits. No urinary or bowel incontinence or retention. Back pain improved in some degree. Past Medical History Past Medical History: Diverticulitis, Diverticulosis Cardiovascular: HTN Pulmonary: Asthma Psych: Anxiet PAST SURGICAL HISTORY: Breast biopsy, cholecystectomy, total knee replacement, tonsillectomy and drainage with diverticular abscess. ERCP+sphincterotomy. Findings: 1. Dilated common bile duct up to the ampulla 2. Papillary stenosis 3. Status post sphincterotomy and balloon swipe FAMILY HISTORY: Positive for cancer, coronary artery disease, diabetes, hypertension, and CVA. SOCIAL HISTORY: She does not smoke, drink alcohol or use recreational drugs. Psych: Anxiety ALCOHOL: none Drugs: None Allergies Coded Allergies: Penicillins (Verified Allergy, Intermediate, 12/22/14) clindamycin (Verified Allergy, Intermediate, 12/22/14) codeine (Verified Adverse Reaction, Intermediate, Itching;, 04/29/18) morphine (Verified Adverse Reaction, Mild, nausea/vomiting, 04/29/18) ROS General: No: Chills, Night Sweats, Fatigue, Malaise, Appetite, Other PSYCHOLOGICAL ROS: No: Anxiety, Behavioral Disorder, Concentration difficultie , Decreased libido, Depression, Disorientation, Hallucinations, Hostility, Irritablity, Memory difficulties, Mood Swings, Obsessive thoughts, Physical abuse, Sexual abuse, Sleep disturbances, Suicidal ideation, Other Eyes: No Blurry vision, No Decreased vision, No Double vision, No Dry eyes, No Excessive tearing, No Eye Pain, No Itchy Eyes, No Loss of vision, No Photophobia , No Scotomata, No Uses contacts, No Uses glasses, No Other HEENT: No: Heacaches, Visual Changes, Hearing change, Nasal congestion, Nasal discharge, Oral lesions, Sinus pain, Sore Throat, Epistaxis, Sneezing, Snoring, Tinnitus, Vertigo, Vocal changes, Other ALLERGY AND IMMUNOLOGY: No: Hives, Insect Bite Sensitivity, Itchy/Watery Eyes, Nasal Congestion, Post Nasal Drip, Seasonal Allergies, Other Hematological and Lymphatic: No: Bleeding Problems, Blood Clots, Blood Transfusions, Brusing, Night Sweats, Pallor, Swollen Lymph Nodes, Other Cardiovascular: No Chest Pain, No Palpitations, No Orthopnea, No Paroxysmal Noc. Dyspnea, No Edema, No Lt Headedness, No Other Gastrointestinal: Yes Constipation Genitourinary: No Dysuria, No Frequency, No Incontinence, No Hematuria, No Retention, No Discharge, No Urgency, No Pain, No Flank Pain, No Other, No , No , No , No , No , No , No Musculoskeletal: Yes Gait Disturbance Neurological: Yes Gait Disturbance Skin: No Dry Skin, No Eczema, No Hair Changes, No Lumps, No Mole Changes, No Mottling, No Nail Changes, No Pruritus, No Rash, No Skin Lesion Changes, No Other, No Acne MEDICATIONS: Refer to [facility] PHYSICAL EXAMINATION: General appearance is in subacute distress. HEENT: Normocephalic and nontraumatic. Eyes, nose, ears, and throat are unremarkable. Neck is supple. No lymphadenopathy. No crepitus. Cardiovascular: S1, S2, regular rate and rhythm. Pulmonary: Clear to auscultation bilaterally. Abdomen: Bowel sounds are positive. Abdomen is soft, nontender, and nondistended. Extremities: No rash, lesions, or edema. Restriction of range of motion due to back pain. NEUROLOGICAL EXAMINATION: Alert Oriented to time, place and person. PERRL. EOMI. CN: no focal findings. Muscle tone: within normal. Muscle strength: 4+ DTR: 1- due to obesity. Plantar reflex: Flexor response bilaterally Gait: not examined in bed. Sensory exam: no abnormal findings. No cerebellar signs elicited. F-T-N test fine. Objective Objective Vital Signs Date Time Temp Pulse Resp B/P (MAP) Pulse Ox O2 Delivery O2 Flow Rate FiO2 05/27/18 16:35 Room Air 05/27/18 15:00 98.7 69 18 117/64 (81) 96 98.7 05/26/18 10:00 1.0 Intake and Output 05/27/18 07:00 Intake Total 880 ml Output Total 600 ml Balance 280 ml Intake Oral 880 ml Output Urine Total 600 ml # Voids 8 Vitals Signs Vitals VS - Last 72 Hours, by Label Date Time Temp Pulse Resp B/P (MAP) Pulse Ox O2 Delivery O2 Flow Rate FiO2 05/27/18 16:35 Room Air 05/27/18 15:00 98.7 69 18 117/64 (81) 96 Room Air 98.7 05/27/18 14:37 Room Air 05/27/18 14:15 Room Air 05/27/18 13:07 Room Air 05/27/18 11:00 98.3 65 20 125/53 (77) 97 Room Air 98.3 05/27/18 08:52 97.5 67 18 111/51 (71) 96 Room Air 97.5 05/27/18 08:51 67 111/51 05/27/18 08:51 67 111/51 05/27/18 08:49 Room Air 05/27/18 08:30 Room Air 05/27/18 07:12 Room Air 05/27/18 04:28 18 05/27/18 03:11 16 Room Air 05/27/18 03:00 97.8 68 18 106/61 (76) 96 Room Air 97.8 05/26/18 23:00 98.8 66 18 139/49 (79) 94 Room Air 98.8 05/26/18 21:50 Room Air 05/26/18 19:30 Room Air 05/26/18 19:00 98.2 62 18 104/47 (66) 93 Room Air 98.2 05/26/18 15:03 97.3 60 16 108/48 (68) 96 Room Air 97.3 05/26/18 15:00 96 05/26/18 15:00 96 Room Air 05/26/18 14:23 95 Room Air 05/26/18 13:49 Room Air 05/26/18 11:11 98.9 64 18 105/47 (66) 95 Room Air 98.9 05/26/18 10:00 1.0 05/26/18 08:53 95 Room Air 05/26/18 08:52 57 110/47 05/26/18 08:52 57 110/47 05/26/18 07:45 Room Air 05/26/18 07:15 98.0 57 18 110/47 (68) 95 Nasal Cannula 98.0 Laboratory Laboratory Laboratory Tests Test 05/27/18 03:25 White Blood Count 4.8 x10^3/uL (4.0-11.0) Red Blood Count 3.71 x10^6/uL (3.50-5.40) Hemoglobin 9.6 g/dL (12.0-15.5) Hematocrit 29.9 % (36.0-47.0) Mean Corpuscular Volume 81 fL (79-100) Mean Corpuscular Hemoglobin 26 pg (25-35) Mean Corpuscular Hemoglobin Concent 32 g/dL (31-37) Red Cell Distribution Width 19.3 % (11.5-14.5) Platelet Count 186 x10^3/uL (140-400) Neutrophils (%) (Auto) 58 % (31-73) Lymphocytes (%) (Auto) 29 % (24-48) Monocytes (%) (Auto) 9 % (0-9) Eosinophils (%) (Auto) 4 % (0-3) Basophils (%) (Auto) 1 % (0-3) Neutrophils # (Auto) 2.8 x10^3uL (1.8-7.7) Lymphocytes # (Auto) 1.4 x10^3/uL (1.0-4.8) Monocytes # (Auto) 0.4 x10^3/uL (0.0-1.1) Eosinophils # (Auto) 0.2 x10^3/uL (0.0-0.7) Basophils # (Auto) 0.0 x10^3/uL (0.0-0.2) Sodium Level 139 mmol/L (136-145) Potassium Level 4.0 mmol/L (3.5-5.1) Chloride Level 102 mmol/L (98-107) Carbon Dioxide Level 29 mmol/L (21-32) Anion Gap 8 (6-14) Blood Urea Nitrogen 28 mg/dL (7-20) Creatinine 1.0 mg/dL (0.6-1.0) Estimated GFR (Cockcroft-Gault) 55.5 Glucose Level 143 mg/dL (70-99) Calcium Level 9.1 mg/dL (8.5-10.1) Medication Medications Current Medications Bisacodyl (Dulcolax Tab) 5 mg PRN DAILY PRN PO CONSTIPATION Last administered on 05/27/18at 10:43; Start 05/27/18 at 10:00 Docusate Sodium (Colace) 100 mg DAILY PO ; Start 05/28/18 at 09:00 Hydromorphone HCl (Dilaudid) 0.5 mg PRN Q3HRS PRN IV SEVERE PAIN Last administered on 05/27/18at 14:37; Start 05/26/18 at 19:45 Iohexol (Omnipaque 180 Mg/ml) 10 ml STK-MED ONCE .ROUTE ; Start 05/27/18 at 07: 55; Stop 05/27/18 at 07:56; Status DC Lactobacillus Rhamnosus (Culturelle) 1 cap BID PO ; Start 05/27/18 at 21:00 Methylprednisolone Acetate (DEPO-Medrol 40MG VIAL) 40 mg STK-MED ONCE .ROUTE ; Start 05/27/18 at 07:54; Stop 05/27/18 at 07:55; Status DC Methylprednisolone Acetate (DEPO-Medrol 80MG VIAL) 80 mg STK-MED ONCE .ROUTE ; Start 05/27/18 at 07:55; Stop 05/27/18 at 07:56; Status DC Polyethylene Glycol (miraLAX PACKET) 17 gm DAILY PO Last administered on at 13:07; Start 05/27/18 at 13:00 Comment Review of Relevant I have reviewed the following items juju (where applicable) has been applied. ANGIE SIM MD May 27, 2018 17:15
[2018-05-27 19:00] VITALS: BP 148/63
[2018-05-27] MEDS: LACTOBACILLUS RHAMNOSUS GG 1 CAPSULE. PO SCH (21:40)
[2018-05-27] MEDS: traZODone 50 MG TABLET. PO SCH (21:40)
[2018-05-27 23:00] VITALS: BP 126/49
[2018-05-28] MEDS: HYDROcodone/APAP 10/325 1 TAB TABLET PO PRN ×5 (01:46→18:05)
[2018-05-28] MEDS: CYCLOBENZAPRINE 10 MG TABLET. PO PRN ×2 (01:46→14:12)
[2018-05-28 03:00] VITALS: BP 155/48
[2018-05-28] MEDS: PANTOPRAZOLE 40 MG TABLET.DR. PO SCH (05:53)
[2018-05-28 07:00] VITALS: BP 128/65
[2018-05-28] MEDS: POLYETHYLENE GLYCOL 3350 17 GM PACKET. PO SCH (08:18)
[2018-05-28] MEDS: GABAPENTIN 100 MG CAPSULE. PO SCH ×2 (08:19→14:12)
[2018-05-28] MEDS: DOXYCYCLINE HYCLATE 100 MG TABLET PO SCH (08:19)
[2018-05-28] MEDS: amLODIPine BESYLATE 5 MG TABLET PO SCH (08:19)
[2018-05-28] MEDS: SERTRALINE 50 MG TABLET. PO SCH (08:19)
[2018-05-28] MEDS: LACTOBACILLUS RHAMNOSUS GG 1 CAPSULE. PO SCH (08:19)
[2018-05-28] MEDS: LOSARTAN POTASSIUM 50 MG TABLET. PO SCH (08:22)
[2018-05-28] MEDS ORDERED: DOCUSATE SODIUM 100 MG CAPSULE. PO SCH (09:00)
--- NOTE | 2018-05-28 10:24 | PDOC ---
PROGRESS NOTES History of Present Illness History of Present Illness VTE Prophylaxis Ordered VTE Prophylaxis Devices: Yes VTE Pharmacological Prophylaxi: Yes Assessment/Plan Assessment/Plan Right LE numbness and tingling., INTRACTABLE PAIN Peripheral neuropathy. Chronic back pain. 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 moderate to severe central spinal canal stenosis at L3-4. Mild bilateral neural foraminal stenosis is seen L3-4. poor surgical candidate due to obesity DM. OA. Obesity. PLAN [facility]28 IV PAIN CONTROL Neurology consult DR SINGER FOLLOWING JOHNNY;AX DAILY DVT PROPHYLAXIS CONT HOME MEDS PT/OT TRANSFER CARE TO DR ROSARIO, HER PCP NEUROSURGERY CONSULT poor surgical candidate Vitals Vitals Vital Signs Date Time Temp Pulse Resp B/P (MAP) Pulse Ox O2 Delivery O2 Flow Rate FiO2 05/28/18 10:09 Room Air 05/28/18 08:22 84 128/65 05/28/18 07:02 16 05/28/18 07:00 97.8 97 97.8 05/28/18 02:12 2.0 Physical Exam General: Alert, Oriented X3, Cooperative, No acute distress, mild distress Heart: Regular rate, Normal S1, Normal S2, No murmurs Lungs: Clear Abdomen: Normal bowel sounds, Soft, No tenderness, No hepatosplenomegaly, Other (VERY OBESE, NO PALPABLE MASS) Extremities: No clubbing, No cyanosis Skin: No breakdown Comment Review of Relevant I have reviewed the following items juju (where applicable) has been applied. Labs Laboratory Tests Test 05/27/18 03:25 White Blood Count 4.8 x10^3/uL (4.0-11.0) Red Blood Count 3.71 x10^6/uL (3.50-5.40) Hemoglobin 9.6 g/dL (12.0-15.5) Hematocrit 29.9 % (36.0-47.0) Mean Corpuscular Volume 81 fL (79-100) Mean Corpuscular Hemoglobin 26 pg (25-35) Mean Corpuscular Hemoglobin Concent 32 g/dL (31-37) Red Cell Distribution Width 19.3 % (11.5-14.5) Platelet Count 186 x10^3/uL (140-400) Neutrophils (%) (Auto) 58 % (31-73) Lymphocytes (%) (Auto) 29 % (24-48) Monocytes (%) (Auto) 9 % (0-9) Eosinophils (%) (Auto) 4 % (0-3) Basophils (%) (Auto) 1 % (0-3) Neutrophils # (Auto) 2.8 x10^3uL (1.8-7.7) Lymphocytes # (Auto) 1.4 x10^3/uL (1.0-4.8) Monocytes # (Auto) 0.4 x10^3/uL (0.0-1.1) Eosinophils # (Auto) 0.2 x10^3/uL (0.0-0.7) Basophils # (Auto) 0.0 x10^3/uL (0.0-0.2) Sodium Level 139 mmol/L (136-145) Potassium Level 4.0 mmol/L (3.5-5.1) Chloride Level 102 mmol/L (98-107) Carbon Dioxide Level 29 mmol/L (21-32) Anion Gap 8 (6-14) Blood Urea Nitrogen 28 mg/dL (7-20) Creatinine 1.0 mg/dL (0.6-1.0) Estimated GFR (Cockcroft-Gault) 55.5 Glucose Level 143 mg/dL (70-99) Calcium Level 9.1 mg/dL (8.5-10.1) Medications Current Medications Fentanyl Citrate (Fentanyl 2ml Vial) 50 mcg PRN Q2HR PRN IV PAIN Last administered on 05/26/18at 14:23; Start 05/25/18 at 11:45; Stop 05/26/18 at 19:36 ; Status DC Amlodipine Besylate (Norvasc) 5 mg DAILY PO Last administered on 05/28/18at 08: 19; Start 05/25/18 at 12:30 Clonazepam (KlonoPIN) 1 mg PRN TID PRN PO ANXIETY; Start 05/25/18 at 11:45 Gabapentin (Neurontin) 100 mg TID PO Last administered on 05/28/18at 08:19; Start 05/25/18 at 14:00 Acetaminophen/ Hydrocodone Bitart (Lortab 10/325) 1 tab PRN Q4HRS PRN PO PAIN Last administered on 05/28/18at 10:09; Start 05/25/18 at 11:45 Albuterol Sulfate (Ventolin Neb Soln) 2.5 mg PRN Q6HRS PRN NEB SHORTNESS OF BREATH Last administered on 05/28/18 02:08; Start 05/25/18 at 11:45 Losartan Potassium (Cozaar) 50 mg DAILY PO Last administered on 05/28/18 08:22 ; Start 05/25/18 at 12:30 Sertraline HCl (Zoloft) 50 mg DAILY PO Last administered on 05/28/18 08:19; Start 05/25/18 at 12:30 Trazodone HCl (Desyrel) 50 mg QHS PO Last administered on 05/27/18 21:40; Start 05/25/18 at 21:00 Pantoprazole Sodium (Protonix) 40 mg DAILYAC PO Last administered on 05/28/18 05:53; Start 05/25/18 at 12:30 Cyclobenzaprine HCl (Flexeril) 10 mg PRN Q12HR PRN PO MUSCLE SPASMS Last administered on 05/28/18 01:46; Start 05/26/18 at 11:15 Doxycycline Hyclate (Vibra-Tab) 100 mg BID PO Last administered on 05/28/18 08 :19; Start 05/26/18 at 13:00 Hydromorphone HCl (Dilaudid) 0.5 mg PRN Q3HRS PRN IV SEVERE PAIN Last administered on 05/27/18at 14:37; Start 05/26/18 at 19:45 Methylprednisolone Acetate (DEPO-Medrol 40MG VIAL) 40 mg STK-MED ONCE .ROUTE ; Start 05/27/18 at 07:54; Stop 05/27/18 at 07:55; Status DC Iohexol (Omnipaque 180 Mg/ml) 10 ml STK-MED ONCE .ROUTE ; Start 05/27/18 at 07: 55; Stop 05/27/18 at 07:56; Status DC Methylprednisolone Acetate (DEPO-Medrol 80MG VIAL) 80 mg STK-MED ONCE .ROUTE ; Start 05/27/18 at 07:55; Stop 05/27/18 at 07:56; Status DC Docusate Sodium (Colace) 100 mg DAILY PO Last administered on 05/28/18at 08:19; Start 05/28/18 at 09:00 Bisacodyl (Dulcolax Tab) 5 mg PRN DAILY PRN PO CONSTIPATION Last administered on 05/27/18at 10:43; Start 05/27/18 at 10:00 Polyethylene Glycol (miraLAX PACKET) 17 gm DAILY PO Last administered on at 08:18; Start 05/27/18 at 13:00 Lactobacillus Rhamnosus (Culturelle) 1 cap BID PO Last administered on at 08:19; Start 05/27/18 at 21:00 Active Scripts Active Hydrocodone-Apap 10-325 (Hydrocodone Bit/Acetaminophen) 1 Tab Tablet 1 Tab PO Q4H PRN 30 Days Gabapentin (Gabapentin) 100 Mg Capsule 100 Mg PO TID 30 Days Reported Prilosec Otc (Omeprazole Magnesium) 20 Mg Tablet.dr 1 Tab PO DAILY Norvasc (Amlodipine Besylate) 5 Mg Tablet 1 Tab PO DAILY Losartan Potassium 50 Mg Tablet 50 Mg PO DAILY Trazodone Hcl 50 Mg Tablet 1 Tab PO QHS Sertraline Hcl 50 Mg Tablet 50 Mg PO DAILY Duoneb 0.5-3(2.5) Mg/3 Ml (Albuterol/Ipratropium) 3 Ml Ampul.neb 3 Ml IH PRN QID PRN Clonazepam 1 Mg Tablet 1 Tab PO PRN TID PRN Vitals/I & O Vital Sign - Last 24 Hours 05/27/18 05/27/18 05/27/18 05/27/18 11:00 13:07 14:37 15:00 Temp 98.3 98.7 98.3 98.7 Pulse 65 69 Resp 20 18 B/P (MAP) 125/53 (77) 117/64 (81) Pulse Ox 97 96 O2 Delivery Room Air Room Air Room Air Room Air 05/27/18 05/27/18 05/27/18 05/27/18 16:35 19:00 19:40 21:41 Temp 98.9 98.9 Pulse 77 Resp 18 18 B/P (MAP) 148/63 (91) Pulse Ox 92 O2 Delivery Room Air Room Air Room Air Room Air 05/27/18 05/28/18 05/28/18 05/28/18 23:00 01:46 02:12 03:00 Temp 98.1 97.6 98.1 97.6 Pulse 66 80 Resp 18 16 18 B/P (MAP) 126/49 (74) 155/48 (83) Pulse Ox 96 95 92 O2 Delivery Room Air Room Air Nasal Cannula Room Air O2 Flow Rate 2.0 05/28/18 05/28/18 05/28/18 05/28/18 05:53 07:00 07:02 08:10 Temp 97.8 97.8 Pulse 84 Resp 16 20 16 B/P (MAP) 128/65 (86) Pulse Ox 97 O2 Delivery Room Air Room Air Room Air Room Air 05/28/18 05/28/18 05/28/18 08:19 08:22 10:09 Pulse 84 84 B/P (MAP) 128/65 128/65 O2 Delivery Room Air Intake and Output 05/27/18 05/27/18 05/28/18 15:00 23:00 07:00 Intake Total 200 ml Balance 200 ml LIDIA CONNELLY MD May 28, 2018 10:24
[2018-05-28 11:00] VITALS: BP 123/54
--- NOTE | 2018-05-28 13:45 | NUR ---
SW following for discharge planning. [facility] advised they cannot accept pt due to "not being able to meet her needs". SW met with pt, pt would like referral sent to [facility]. SW faxed referral, [facility] has accepted. EDILSON advised Dr. Ba. Possible discharge today. EDILSON will continue to follow.
--- NOTE | 2018-05-28 14:03 | PDOC ---
PROGRESS NOTES Subjective Subjective She feels better. Objective Objective Vital Signs Date Time Temp Pulse Resp B/P (MAP) Pulse Ox O2 Delivery O2 Flow Rate FiO2 05/28/18 11:00 98.2 77 20 123/54 (77) 97 Room Air 98.2 05/28/18 02:12 2.0 Intake and Output 05/28/18 07:00 Intake Total 200 ml Balance 200 ml Intake Oral 200 ml # Voids 2 Physical Exam Physical Exam She is comfortable supine in bed and moving with less pain. Plan Plan of Care To SNF or rehab unit for continued care. Comment Review of Relevant I have reviewed the following items juju (where applicable) has been applied. Labs Laboratory Tests Test 05/27/18 03:25 05/28/18 11:26 White Blood Count 4.8 x10^3/uL (4.0-11.0) Red Blood Count 3.71 x10^6/uL (3.50-5.40) Hemoglobin 9.6 g/dL (12.0-15.5) Hematocrit 29.9 % (36.0-47.0) Mean Corpuscular Volume 81 fL (79-100) Mean Corpuscular Hemoglobin 26 pg (25-35) Mean Corpuscular Hemoglobin Concent 32 g/dL (31-37) Red Cell Distribution Width 19.3 % (11.5-14.5) Platelet Count 186 x10^3/uL (140-400) Neutrophils (%) (Auto) 58 % (31-73) Lymphocytes (%) (Auto) 29 % (24-48) Monocytes (%) (Auto) 9 % (0-9) Eosinophils (%) (Auto) 4 % (0-3) Basophils (%) (Auto) 1 % (0-3) Neutrophils # (Auto) 2.8 x10^3uL (1.8-7.7) Lymphocytes # (Auto) 1.4 x10^3/uL (1.0-4.8) Monocytes # (Auto) 0.4 x10^3/uL (0.0-1.1) Eosinophils # (Auto) 0.2 x10^3/uL (0.0-0.7) Basophils # (Auto) 0.0 x10^3/uL (0.0-0.2) Sodium Level 139 mmol/L (136-145) Potassium Level 4.0 mmol/L (3.5-5.1) Chloride Level 102 mmol/L (98-107) Carbon Dioxide Level 29 mmol/L (21-32) Anion Gap 8 (6-14) Blood Urea Nitrogen 28 mg/dL (7-20) Creatinine 1.0 mg/dL (0.6-1.0) Estimated GFR (Cockcroft-Gault) 55.5 Glucose Level 143 mg/dL (70-99) Calcium Level 9.1 mg/dL (8.5-10.1) Glucose (Fingerstick) 133 mg/dL (70-99) Laboratory Tests Test 05/28/18 11:26 Glucose (Fingerstick) 133 mg/dL (70-99) Medications Current Medications Fentanyl Citrate (Fentanyl 2ml Vial) 50 mcg PRN Q2HR PRN IV PAIN Last administered on 05/26/18 14:23; Start 05/25/18 at 11:45; Stop 05/26/18 at 19:36 ; Status DC Amlodipine Besylate (Norvasc) 5 mg DAILY PO Last administered on 05/28/18 08: 19; Start 05/25/18 at 12:30 Clonazepam (KlonoPIN) 1 mg PRN TID PRN PO ANXIETY; Start 05/25/18 at 11:45 Gabapentin (Neurontin) 100 mg TID PO Last administered on 05/28/18 08:19; Start 05/25/18 at 14:00 Acetaminophen/ Hydrocodone Bitart (Lortab 10/325) 1 tab PRN Q4HRS PRN PO PAIN Last administered on 05/28/18 10:09; Start 05/25/18 at 11:45 Albuterol Sulfate (Ventolin Neb Soln) 2.5 mg PRN Q6HRS PRN NEB SHORTNESS OF BREATH Last administered on 05/28/18 02:08; Start 05/25/18 at 11:45 Losartan Potassium (Cozaar) 50 mg DAILY PO Last administered on 05/28/18 08:22 ; Start 05/25/18 at 12:30 Sertraline HCl (Zoloft) 50 mg DAILY PO Last administered on 05/28/18 08:19; Start 05/25/18 at 12:30 Trazodone HCl (Desyrel) 50 mg QHS PO Last administered on 05/27/18 21:40; Start 05/25/18 at 21:00 Pantoprazole Sodium (Protonix) 40 mg DAILYAC PO Last administered on 05/28/18 05:53; Start 05/25/18 at 12:30 Cyclobenzaprine HCl (Flexeril) 10 mg PRN Q12HR PRN PO MUSCLE SPASMS Last administered on 05/28/18 01:46; Start 05/26/18 at 11:15 Doxycycline Hyclate (Vibra-Tab) 100 mg BID PO Last administered on 05/28/18 08 :19; Start 05/26/18 at 13:00 Hydromorphone HCl (Dilaudid) 0.5 mg PRN Q3HRS PRN IV SEVERE PAIN Last administered on 05/27/18 14:37; Start 05/26/18 at 19:45 Methylprednisolone Acetate (DEPO-Medrol 40MG VIAL) 40 mg STK-MED ONCE .ROUTE ; Start 05/27/18 at 07:54; Stop 05/27/18 at 07:55; Status DC Iohexol (Omnipaque 180 Mg/ml) 10 ml STK-MED ONCE .ROUTE ; Start 05/27/18 at 07: 55; Stop 05/27/18 at 07:56; Status DC Methylprednisolone Acetate (DEPO-Medrol 80MG VIAL) 80 mg STK-MED ONCE .ROUTE ; Start 05/27/18 at 07:55; Stop 05/27/18 at 07:56; Status DC Docusate Sodium (Colace) 100 mg DAILY PO Last administered on 05/28/18 08:19; Start 05/28/18 at 09:00 Bisacodyl (Dulcolax Tab) 5 mg PRN DAILY PRN PO CONSTIPATION Last administered on 05/27/18 10:43; Start 05/27/18 at 10:00 Polyethylene Glycol (miraLAX PACKET) 17 gm DAILY PO Last administered on 08:18; Start 05/27/18 at 13:00 Lactobacillus Rhamnosus (Culturelle) 1 cap BID PO Last administered on 08:19; Start 05/27/18 at 21:00 Active Scripts Active Hydrocodone-Apap 10-325 (Hydrocodone Bit/Acetaminophen) 1 Tab Tablet 1 Tab PO Q4H PRN 30 Days Gabapentin (Gabapentin) 100 Mg Capsule 100 Mg PO TID 30 Days Reported Prilosec Otc (Omeprazole Magnesium) 20 Mg Tablet.dr 1 Tab PO DAILY Norvasc (Amlodipine Besylate) 5 Mg Tablet 1 Tab PO DAILY Losartan Potassium 50 Mg Tablet 50 Mg PO DAILY Trazodone Hcl 50 Mg Tablet 1 Tab PO QHS Sertraline Hcl 50 Mg Tablet 50 Mg PO DAILY Duoneb 0.5-3(2.5) Mg/3 Ml (Albuterol/Ipratropium) 3 Ml Ampul.neb 3 Ml IH PRN QID PRN Clonazepam 1 Mg Tablet 1 Tab PO PRN TID PRN Vitals/I & O Vital Sign - Last 24 Hours 05/27/18 05/27/18 05/27/18 05/27/18 14:37 15:00 16:35 19:00 Temp 98.7 98.9 98.7 98.9 Pulse 69 77 Resp 18 18 B/P (MAP) 117/64 (81) 148/63 (91) Pulse Ox 96 92 O2 Delivery Room Air Room Air Room Air Room Air 05/27/18 05/27/18 05/27/18 05/28/18 19:40 21:41 23:00 01:46 Temp 98.1 98.1 Pulse 66 Resp 18 18 16 B/P (MAP) 126/49 (74) Pulse Ox 96 O2 Delivery Room Air Room Air Room Air Room Air 05/28/18 05/28/18 05/28/18 05/28/18 02:12 03:00 05:53 07:00 Temp 97.6 97.8 97.6 97.8 Pulse 80 84 Resp 18 16 20 B/P (MAP) 155/48 (83) 128/65 (86) Pulse Ox 95 92 97 O2 Delivery Nasal Cannula Room Air Room Air Room Air O2 Flow Rate 2.0 05/28/18 05/28/18 05/28/18 05/28/18 07:02 08:10 08:19 08:22 Pulse 84 84 Resp 16 B/P (MAP) 128/65 128/65 O2 Delivery Room Air Room Air 05/28/18 05/28/18 10:09 11:00 Temp 98.2 98.2 Pulse 77 Resp 20 B/P (MAP) 123/54 (77) Pulse Ox 97 O2 Delivery Room Air Room Air Intake and Output 05/27/18 05/27/18 05/28/18 15:00 23:00 07:00 Intake Total 200 ml Balance 200 ml SHEYLA SINGER MD May 28, 2018 14:03
--- NOTE | 2018-05-28 14:05 | PDOC3 ---
Discharge Summary Date of Admission: May 25, 2018 Date of Discharge: May 28, 2018 Follow-Up: 1-2 days Admitting Diagnosis comment: discharge dx Assessment/Plan Right LE numbness and tingling., INTRACTABLE PAIN Peripheral neuropathy. Chronic back pain. 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 moderate to severe central spinal canal stenosis at L3-4. Mild bilateral neural foraminal stenosis is seen L3-4. patient is poor surgical candidate due to morbid obesity DM. OA. Obesity. PLAN EDB rory well to [facility] bed today 05/28 IV PAIN CONTROL Neurology consult DR SINGER FOLLOWING JOHNNY;AX DAILY DVT PROPHYLAXIS CONT HOME MEDS PT/OT TRANSFER CARE TO DR ROSARIO, HER PCP NEUROSURGERY CONSULT poor surgical candidate Vitals Vitals Vital Signs Date Time Temp Pulse Resp B/P (MAP) Pulse Ox O2 Delivery O2 Flow Rate FiO2 05/28/18 10:09 Room Air 05/28/18 08:22 84 128/65 05/28/18 07:02 16 05/28/18 07:00 97.8 97 97.8 05/28/18 02:12 2.0 Physical Exam General: Alert, Oriented X3, Cooperative, No acute distress, mild distress Heart: Regular rate, Normal S1, Normal S2, No murmurs Lungs: Clear Abdomen: Normal bowel sounds, Soft, No tenderness, No hepatosplenomegaly, Other (VERY OBESE, NO PALPABLE MASS) Extremities: No clubbing, No cyanosis Skin: No breakdown Brief Hospital Course Ms. Smith is a 68 old [sex] who presented with [ ] CONDITION AT DISCHARGE: Comment (fair) Discharge Medications Current Medications Fentanyl Citrate (Fentanyl 2ml Vial) 50 mcg PRN Q2HR PRN IV PAIN Last administered on 05/26/18at 14:23; Start 05/25/18 at 11:45; Stop 05/26/18 at 19:36 ; Status DC Amlodipine Besylate (Norvasc) 5 mg DAILY PO Last administered on 05/28/18at 08: 19; Start 05/25/18 at 12:30 Clonazepam (KlonoPIN) 1 mg PRN TID PRN PO ANXIETY; Start 05/25/18 at 11:45 Gabapentin (Neurontin) 100 mg TID PO Last administered on 05/28/18 08:19; Start 05/25/18 at 14:00 Acetaminophen/ Hydrocodone Bitart (Lortab 10/325) 1 tab PRN Q4HRS PRN PO PAIN Last administered on 05/28/18 10:09; Start 05/25/18 at 11:45 Albuterol Sulfate (Ventolin Neb Soln) 2.5 mg PRN Q6HRS PRN NEB SHORTNESS OF BREATH Last administered on 05/28/18 02:08; Start 05/25/18 at 11:45 Losartan Potassium (Cozaar) 50 mg DAILY PO Last administered on 05/28/18 08:22 ; Start 05/25/18 at 12:30 Sertraline HCl (Zoloft) 50 mg DAILY PO Last administered on 05/28/18 08:19; Start 05/25/18 at 12:30 Trazodone HCl (Desyrel) 50 mg QHS PO Last administered on 05/27/18 21:40; Start 05/25/18 at 21:00 Pantoprazole Sodium (Protonix) 40 mg DAILYAC PO Last administered on 05/28/18 05:53; Start 05/25/18 at 12:30 Cyclobenzaprine HCl (Flexeril) 10 mg PRN Q12HR PRN PO MUSCLE SPASMS Last administered on 05/28/18 01:46; Start 05/26/18 at 11:15 Doxycycline Hyclate (Vibra-Tab) 100 mg BID PO Last administered on 05/28/18 08 :19; Start 05/26/18 at 13:00 Hydromorphone HCl (Dilaudid) 0.5 mg PRN Q3HRS PRN IV SEVERE PAIN Last administered on 05/27/18at 14:37; Start 05/26/18 at 19:45 Methylprednisolone Acetate (DEPO-Medrol 40MG VIAL) 40 mg STK-MED ONCE .ROUTE ; Start 05/27/18 at 07:54; Stop 05/27/18 at 07:55; Status DC Iohexol (Omnipaque 180 Mg/ml) 10 ml STK-MED ONCE .ROUTE ; Start 05/27/18 at 07: 55; Stop 05/27/18 at 07:56; Status DC Methylprednisolone Acetate (DEPO-Medrol 80MG VIAL) 80 mg STK-MED ONCE .ROUTE ; Start 05/27/18 at 07:55; Stop 05/27/18 at 07:56; Status DC Docusate Sodium (Colace) 100 mg DAILY PO Last administered on 05/28/18at 08:19; Start 05/28/18 at 09:00 Bisacodyl (Dulcolax Tab) 5 mg PRN DAILY PRN PO CONSTIPATION Last administered on 05/27/18at 10:43; Start 05/27/18 at 10:00 Polyethylene Glycol (miraLAX PACKET) 17 gm DAILY PO Last administered on at 08:18; Start 05/27/18 at 13:00 Lactobacillus Rhamnosus (Culturelle) 1 cap BID PO Last administered on at 08:19; Start 05/27/18 at 21:00 Active Scripts Active Hydrocodone-Apap 10-325 (Hydrocodone Bit/Acetaminophen) 1 Tab Tablet 1 Tab PO Q4H PRN 30 Days Gabapentin (Gabapentin) 100 Mg Capsule 100 Mg PO TID 30 Days Reported Prilosec Otc (Omeprazole Magnesium) 20 Mg Tablet. 1 Tab PO DAILY Norvasc (Amlodipine Besylate) 5 Mg Tablet 1 Tab PO DAILY Losartan Potassium 50 Mg Tablet 50 Mg PO DAILY Trazodone Hcl 50 Mg Tablet 1 Tab PO QHS Sertraline Hcl 50 Mg Tablet 50 Mg PO DAILY Duoneb 0.5-3(2.5) Mg/3 Ml (Albuterol/Ipratropium) 3 Ml Ampul.neb 3 Ml IH PRN QID PRN Clonazepam 1 Mg Tablet 1 Tab PO PRN TID PRN Vital Signs Vital Signs Date Time Temp Pulse Resp B/P (MAP) Pulse Ox O2 Delivery O2 Flow Rate FiO2 05/28/18 11:00 98.2 77 20 123/54 (77) 97 Room Air 98.2 05/28/18 02:12 2.0 Labs Laboratory Tests Test 05/27/18 03:25 05/28/18 11:26 White Blood Count 4.8 x10^3/uL (4.0-11.0) Red Blood Count 3.71 x10^6/uL (3.50-5.40) Hemoglobin 9.6 g/dL (12.0-15.5) Hematocrit 29.9 % (36.0-47.0) Mean Corpuscular Volume 81 fL (79-100) Mean Corpuscular Hemoglobin 26 pg (25-35) Mean Corpuscular Hemoglobin Concent 32 g/dL (31-37) Red Cell Distribution Width 19.3 % (11.5-14.5) Platelet Count 186 x10^3/uL (140-400) Neutrophils (%) (Auto) 58 % (31-73) Lymphocytes (%) (Auto) 29 % (24-48) Monocytes (%) (Auto) 9 % (0-9) Eosinophils (%) (Auto) 4 % (0-3) Basophils (%) (Auto) 1 % (0-3) Neutrophils # (Auto) 2.8 x10^3uL (1.8-7.7) Lymphocytes # (Auto) 1.4 x10^3/uL (1.0-4.8) Monocytes # (Auto) 0.4 x10^3/uL (0.0-1.1) Eosinophils # (Auto) 0.2 x10^3/uL (0.0-0.7) Basophils # (Auto) 0.0 x10^3/uL (0.0-0.2) Sodium Level 139 mmol/L (136-145) Potassium Level 4.0 mmol/L (3.5-5.1) Chloride Level 102 mmol/L (98-107) Carbon Dioxide Level 29 mmol/L (21-32) Anion Gap 8 (6-14) Blood Urea Nitrogen 28 mg/dL (7-20) Creatinine 1.0 mg/dL (0.6-1.0) Estimated GFR (Cockcroft-Gault) 55.5 Glucose Level 143 mg/dL (70-99) Calcium Level 9.1 mg/dL (8.5-10.1) Glucose (Fingerstick) 133 mg/dL (70-99) Laboratory Tests Test 05/28/18 11:26 Glucose (Fingerstick) 133 mg/dL (70-99) Allergies Allergies Coded Allergies Type Severity Reaction Last Updated Verified Penicillins Allergy Intermediate 12/22/14 Yes clindamycin Allergy Intermediate 12/22/14 Yes codeine Adverse Reaction Intermediate Itching; 04/29/18 Yes morphine Adverse Reaction Mild nausea/vomiting 04/29/18 Yes Disposition/Orders: D/C to Another Facility ([facility]) Patient Instructions D/C PLANNING 40 MIN LIDIA CONNELLY MD May 28, 2018 14:05
[2018-05-28] MEDS ORDERED: BISA5TAB4 PO (14:08)
[2018-05-28] MEDS ORDERED: DOXY100T PO (14:08)
[2018-05-28] MEDS ORDERED: POLY17PO28 PO (14:08)
[2018-05-28] MEDS ORDERED: CYCL10TA2 PO (14:08)
[2018-05-28] MEDS ORDERED: HYDR2VIA2 IV (14:08)
[2018-05-28] MEDS ORDERED: LACT1CAP19 PO (14:08)
--- NOTE | 2018-05-28 14:09 | DISCH ---
DISCHARGE DISCHARGE INFORMATION: CONDITION ON DISCHARGE: Stable CODE STATUS: Code Status: Full FPC: SNF STAY <30 DAYS: Yes HOSPICE: HOSPICE: No HOSPICE EVAL & TREAT: No LTAC: ADMIT TO LTAC: No POST DISCHARGE ORDERS: ACTIVITY ORDERS: Activity as tolerated WEIGHT BEARING STATUS: As tolerated BATHING ORDERS: Shower-keep dressing dry WOUND/INCISION CARE: Reinforce dressing PRN TREATMENT/EQUIPMENT ORDERS: ADAPTIVE EQUIPMENT NEEDED: None, Front wheeled walker Physical Therapy For: Evalulation/Treatment Occupational Therapy For: Evaluation/Treatment Speech Language Pathology For: Evaluation/Treatment DISCHARGE MEDICATIONS: Home Meds Active Scripts Hydromorphone Hcl (HYDROMORPHONE HCL) 2 Mg/1 Ml Vial, 0.5 MG IV PRN Q3HRS PRN for SEVERE PAIN for 10 Days, #30 EACH Prov:LIDIA CONNELLY MD 05/28/18 Lactobacillus Rhamnosus Gg (CULTURELLE) 1 Each Cap.sprink, 1 CAP PO BID for GI SUPPLEMENT for 10 Days, #20 CAP Prov:LIDIA CONNELLY MD 05/28/18 Polyethylene Glycol 3350 (POLYETHYLENE GLYCOL 3350) 17 Gm Powd.pack, 17 GM PO DAILY for CONSTIPATION for 10 Days, #10 PKT Prov:LIDIA CONNELLY MD 05/28/18 Bisacodyl (BISACODYL) 5 Mg Tablet.dr, 5 MG PO PRN DAILY PRN for CONSTIPATION for 7 Days, #7 TAB.SR Prov:LIDIA CONNELLY MD 05/28/18 Cyclobenzaprine Hcl (CYCLOBENZAPRINE HCL) 10 Mg Tablet, 10 MG PO PRN Q12HR PRN for MUSCLE SPASMS for 7 Days, #14 TAB Prov:LIDIA CONNELLY MD 05/28/18 Doxycycline Hyclate (DOXYCYCLINE HYCLATE) 100 Mg Tablet, 100 MG PO BID for UTI for 7 Days, #14 TAB Prov:LIDIA CONNELLY MD 05/28/18 Hydrocodone Bit/Acetaminophen (HYDROCODONE-APAP 10-325 ) 1 Tab Tablet, 1 TAB PO Q4H PRN for PAIN for 30 Days, #180 TAB 0 Refills Prov:ALISHA ROSARIO MD 05/04/18 Gabapentin (GABAPENTIN ) 100 Mg Capsule, 100 MG PO TID for NEUROGENIC PAIN for 30 Days, #90 CAP 5 Refills Prov:ALISHA ROSARIO MD 05/04/18 Reported Medications Omeprazole Magnesium (PRILOSEC OTC) 20 Mg Tablet.dr, 1 TAB PO DAILY, #30 TAB 3 Refills 05/07/17 Amlodipine Besylate (NORVASC) 5 Mg Tablet, 1 TAB PO DAILY, #30 TAB 5 Refills 05/07/17 Losartan Potassium (LOSARTAN POTASSIUM) 50 Mg Tablet, 50 MG PO DAILY, TAB 05/07/17 Trazodone Hcl (TRAZODONE HCL) 50 Mg Tablet, 1 TAB PO QHS for antidepressant, # 30 TAB 1 Refill 12/17/14 Sertraline Hcl (SERTRALINE HCL) 50 Mg Tablet, 50 MG PO DAILY for ANTI-DEPRESSANT , TAB 0 Refills 12/17/14 Ipratropium/Albuterol Sulfate (DUONEB 0.5-3(2.5) MG/3 ML) 3 Ml Ampul.neb, 3 ML IH PRN QID PRN for SHORTNESS OF BREATH 12/17/14 Clonazepam (CLONAZEPAM) 1 Mg Tablet, 1 TAB PO PRN TID PRN for ANXIETY, #90 TAB 2 Refills 12/17/14 LIDIA CONNELLY MD May 28, 2018 14:09
[2018-05-28 15:00] VITALS: BP 106/64
--- NOTE | 2018-05-28 15:42 | PDOC ---
PROGRESS NOTES Assessment Severe lower back pain, acute on chronic. Disc bulging. L3-L4 moderate to severe stenosis. No cord compression or nerve roots impingement on L-spine MRI. Plan As per physiatry and pain management OT/PT. Treat medical diseases. Note plans for inpatient rehab FU with PCP, physiatry and pain management. Objective Vital Signs Date Time Temp Pulse Resp B/P (MAP) Pulse Ox O2 Delivery O2 Flow Rate FiO2 05/28/18 14:16 Room Air 05/28/18 11:00 98.2 77 20 123/54 (77) 97 98.2 05/28/18 02:12 2.0 Intake and Output 05/28/18 07:00 Intake Total 200 ml Balance 200 ml Intake Oral 200 ml # Voids 2 PHYSICAL EXAM Alert. Oriented to time, place and person. PERRL. EOMI. CN: no focal findings. Muscle tone: normal. Muscle strength: 5-/5 DTR: 2+ Plantar reflex: flexor Gait: not examined in bed. Sensory exam: no abnormal findings. No cerebellar signs elicited. Review of Relevant I have reviewed the following items juju (where applicable) has been applied. Labs Laboratory Tests Test 05/27/18 03:25 05/28/18 11:26 White Blood Count 4.8 x10^3/uL (4.0-11.0) Red Blood Count 3.71 x10^6/uL (3.50-5.40) Hemoglobin 9.6 g/dL (12.0-15.5) Hematocrit 29.9 % (36.0-47.0) Mean Corpuscular Volume 81 fL (79-100) Mean Corpuscular Hemoglobin 26 pg (25-35) Mean Corpuscular Hemoglobin Concent 32 g/dL (31-37) Red Cell Distribution Width 19.3 % (11.5-14.5) Platelet Count 186 x10^3/uL (140-400) Neutrophils (%) (Auto) 58 % (31-73) Lymphocytes (%) (Auto) 29 % (24-48) Monocytes (%) (Auto) 9 % (0-9) Eosinophils (%) (Auto) 4 % (0-3) Basophils (%) (Auto) 1 % (0-3) Neutrophils # (Auto) 2.8 x10^3uL (1.8-7.7) Lymphocytes # (Auto) 1.4 x10^3/uL (1.0-4.8) Monocytes # (Auto) 0.4 x10^3/uL (0.0-1.1) Eosinophils # (Auto) 0.2 x10^3/uL (0.0-0.7) Basophils # (Auto) 0.0 x10^3/uL (0.0-0.2) Sodium Level 139 mmol/L (136-145) Potassium Level 4.0 mmol/L (3.5-5.1) Chloride Level 102 mmol/L (98-107) Carbon Dioxide Level 29 mmol/L (21-32) Anion Gap 8 (6-14) Blood Urea Nitrogen 28 mg/dL (7-20) Creatinine 1.0 mg/dL (0.6-1.0) Estimated GFR (Cockcroft-Gault) 55.5 Glucose Level 143 mg/dL (70-99) Calcium Level 9.1 mg/dL (8.5-10.1) Glucose (Fingerstick) 133 mg/dL (70-99) Laboratory Tests Test 05/28/18 11:26 Glucose (Fingerstick) 133 mg/dL (70-99) Medications Current Medications Fentanyl Citrate (Fentanyl 2ml Vial) 50 mcg PRN Q2HR PRN IV PAIN Last administered on 05/26/18 14:23; Start 05/25/18 at 11:45; Stop 05/26/18 at 19:36 ; Status DC Amlodipine Besylate (Norvasc) 5 mg DAILY PO Last administered on 05/28/18 08: 19; Start 05/25/18 at 12:30 Clonazepam (KlonoPIN) 1 mg PRN TID PRN PO ANXIETY; Start 05/25/18 at 11:45 Gabapentin (Neurontin) 100 mg TID PO Last administered on 05/28/18 14:12; Start 05/25/18 at 14:00 Acetaminophen/ Hydrocodone Bitart (Lortab 10) 1 tab PRN Q4HRS PRN PO PAIN Last administered on 05/28/18 14:16; Start 05/25/18 at 11:45 Albuterol Sulfate (Ventolin Neb Soln) 2.5 mg PRN Q6HRS PRN NEB SHORTNESS OF BREATH Last administered on 05/28/18 02:08; Start 05/25/18 at 11:45 Losartan Potassium (Cozaar) 50 mg DAILY PO Last administered on 05/28/18 08:22 ; Start 05/25/18 at 12:30 Sertraline HCl (Zoloft) 50 mg DAILY PO Last administered on 05/28/18 08:19; Start 05/25/18 at 12:30 Trazodone HCl (Desyrel) 50 mg QHS PO Last administered on 05/27/18at 21:40; Start 05/25/18 at 21:00 Pantoprazole Sodium (Protonix) 40 mg DAILYAC PO Last administered on 05/28/18 05:53; Start 05/25/18 at 12:30 Cyclobenzaprine HCl (Flexeril) 10 mg PRN Q12HR PRN PO MUSCLE SPASMS Last administered on 05/28/18 14:12; Start 05/26/18 at 11:15 Doxycycline Hyclate (Vibra-Tab) 100 mg BID PO Last administered on 05/28/18 08 :19; Start 05/26/18 at 13:00 Hydromorphone HCl (Dilaudid) 0.5 mg PRN Q3HRS PRN IV SEVERE PAIN Last administered on 05/27/18 14:37; Start 05/26/18 at 19:45 Methylprednisolone Acetate (DEPO-Medrol 40MG VIAL) 40 mg STK-MED ONCE .ROUTE ; Start 05/27/18 at 07:54; Stop 05/27/18 at 07:55; Status DC Iohexol (Omnipaque 180 Mg/ml) 10 ml STK-MED ONCE .ROUTE ; Start 05/27/18 at 07: 55; Stop 05/27/18 at 07:56; Status DC Methylprednisolone Acetate (DEPO-Medrol 80MG VIAL) 80 mg STK-MED ONCE .ROUTE ; Start 05/27/18 at 07:55; Stop 05/27/18 at 07:56; Status DC Docusate Sodium (Colace) 100 mg DAILY PO Last administered on 05/28/18 08:19; Start 05/28/18 at 09:00 Bisacodyl (Dulcolax Tab) 5 mg PRN DAILY PRN PO CONSTIPATION Last administered on 05/27/18at 10:43; Start 05/27/18 at 10:00 Polyethylene Glycol (miraLAX PACKET) 17 gm DAILY PO Last administered on at 08:18; Start 05/27/18 at 13:00 Lactobacillus Rhamnosus (Culturelle) 1 cap BID PO Last administered on at 08:19; Start 05/27/18 at 21:00 Active Scripts Active Hydromorphone Hcl 2 Mg/1 Ml Vial 0.5 Mg IV PRN Q3HRS PRN 10 Days Culturelle (Lactobacillus Rhamnosus Gg) 1 Each Cap.sprink 1 Cap PO BID 10 Days Polyethylene Glycol 3350 17 Gm Powd.pack 17 Gm PO DAILY 10 Days Bisacodyl 5 Mg Tablet.dr 5 Mg PO PRN DAILY PRN 7 Days Cyclobenzaprine Hcl 10 Mg Tablet 10 Mg PO PRN Q12HR PRN 7 Days Doxycycline Hyclate 100 Mg Tablet 100 Mg PO BID 7 Days Hydrocodone-Apap 10-325 (Hydrocodone Bit/Acetaminophen) 1 Tab Tablet 1 Tab PO Q4H PRN 30 Days Gabapentin (Gabapentin) 100 Mg Capsule 100 Mg PO TID 30 Days Reported Prilosec Otc (Omeprazole Magnesium) 20 Mg Tablet. 1 Tab PO DAILY Norvasc (Amlodipine Besylate) 5 Mg Tablet 1 Tab PO DAILY Losartan Potassium 50 Mg Tablet 50 Mg PO DAILY Trazodone Hcl 50 Mg Tablet 1 Tab PO QHS Sertraline Hcl 50 Mg Tablet 50 Mg PO DAILY Duoneb 0.5-3(2.5) Mg/3 Ml (Albuterol/Ipratropium) 3 Ml Ampul.neb 3 Ml IH PRN QID PRN Clonazepam 1 Mg Tablet 1 Tab PO PRN TID PRN Vitals/I & O Vital Sign - Last 24 Hours 05/27/18 05/27/18 05/27/18 05/27/18 16:35 19:00 19:40 21:41 Temp 98.9 98.9 Pulse 77 Resp 18 18 B/P (MAP) 148/63 (91) Pulse Ox 92 O2 Delivery Room Air Room Air Room Air Room Air 05/27/18 05/28/18 05/28/18 05/28/18 23:00 01:46 02:12 03:00 Temp 98.1 97.6 98.1 97.6 Pulse 66 80 Resp 18 16 18 B/P (MAP) 126/49 (74) 155/48 (83) Pulse Ox 96 95 92 O2 Delivery Room Air Room Air Nasal Cannula Room Air O2 Flow Rate 2.0 05/28/18 05/28/18 05/28/18 05/28/18 05:53 07:00 07:02 08:10 Temp 97.8 97.8 Pulse 84 Resp 16 20 16 B/P (MAP) 128/65 (86) Pulse Ox 97 O2 Delivery Room Air Room Air Room Air 05/28/18 05/28/18 05/28/18 05/28/18 08:19 08:22 10:09 11:00 Temp 98.2 98.2 Pulse 84 84 77 Resp 20 B/P (MAP) 128/65 128/65 123/54 (77) Pulse Ox 97 O2 Delivery Room Air Room Air 05/28/18 05/28/18 14:16 14:16 O2 Delivery Room Air Room Air Intake and Output 05/27/18 05/27/18 05/28/18 15:00 23:00 07:00 Intake Total 200 ml Balance 200 ml DOUG ASENCIO MD May 28, 2018 15:42
--- NOTE | 2018-05-28 15:46 | NUR ---
SW following. Pt will be transported by [facility] between 0056-0124. RN notified. Addendum: 05/28/18 at 1630 by VERONICA MAJANO SW Pt choice and rights letter signed and placed on chart. No further SW needs.
--- NOTE | 2018-05-28 18:35 | NUR ---
Report called to SHANNA Eaton at [facility] at 1620. Discharge paperwork given to [employer]. Pt dc by dori gonzalez, belongings with pt at time of dc.
== END 2018-05-28 18:35 | disposition swing bed (61) | DRG 552 ==
LOC: 4 NORTH 10:21
PROVIDERS: ADMIT Family Medicine; ATTEND Family Medicine
PROC: 3E0R33Z Introduction of Anti-inflammatory into Spinal Canal, Percutaneous Approach (ICD-10-PCS; principal; 2018-05-27)
PROC: 3E0R3BZ Introduction of Anesthetic Agent into Spinal Canal, Percutaneous Approach (ICD-10-PCS; 2018-05-27)
DX: M51.16 Intervertebral disc disorders with radiculopathy, lumbar region (principal); N39.0 Urinary tract infection, site not specified; Z68.41 Body mass index [BMI] 40.0-44.9, adult; M48.061 Spinal stenosis, lumbar region without neurogenic claudication; R20.0 Anesthesia of skin; M47.26 Other spondylosis with radiculopathy, lumbar region; G89.29 Other chronic pain; E11.42 Type 2 diabetes mellitus with diabetic polyneuropathy; E66.9 Obesity, unspecified; I10 Essential (primary) hypertension; E66.01 Morbid (severe) obesity due to excess calories; M19.90 Unspecified osteoarthritis, unspecified site; Z96.653 Presence of artificial knee joint, bilateral; F41.9 Anxiety disorder, unspecified; G62.9 Polyneuropathy, unspecified; J45.909 Unspecified asthma, uncomplicated; Z82.3 Family history of stroke; Z82.49 Family history of ischemic heart disease and other diseases of the circulatory system; Z83.3 Family history of diabetes mellitus; Z88.0 Allergy status to penicillin; Z88.8 Allergy status to other drugs, medicaments and biological substances; Z79.899 Other long term (current) drug therapy; Z90.49 Acquired absence of other specified parts of digestive tract
CPT/HCPCS: 36415; 62323; 80048; 80053; 81001; 82962; 85025; 94640; J1030; J1040; J1170; J3010; J7613; Q9965; 97116; 97530; 97535

== ENCOUNTER → 2019-03-24 | Outpatient (CLI) | payer MEDICARE ==
[~2019-03-24] MED LIST changes: +BISA5TAB4 PO; +CHOL200027 PO; -CLON1TAB11 PO; +CLONAZEPAM1 MG PO; +CYAN-25 PO; +CYCL10TA2 PO; +DOXY100T PO; +HYDR2VIA2 IV; +IOHEXOL 180 MG/ML 10 ML VIAL. ONE; +LACT1CAP19 PO; +NAPR500T8 PO; +OMEP40CA45 PO; -PANT40TA5 PO; +PANT40TA77 PO; +POLY17PO28 PO; +SERT100T PO; +TRAZ-118 PO; -TRAZ-85 PO; +methylPREDNISolone ACETATE 40 MG/ML VIAL. ONE; +methylPREDNISolone ACETATE 80 MG/ML VIAL. ONE
[2019-03-24 11:00] VITALS: BP 178/77
--- NOTE | 2019-03-24 14:07 | PAIN ---
DATE OF SERVICE: 03/24/2019 PROGRESS NOTE FOR PAIN CLINIC DIAGNOSIS: Lumbar radiculopathy with lumbar degenerative disk disease. HISTORY OF PRESENT ILLNESS: The patient is a 69-year-old female who returns, last seen as an inpatient on 05/27/2018. The patient reports she did very well after her last injection about 50% improvement until about a week ago, pain began to return in her low back and right lower extremity, posterior low back across the left at some point but mostly on the right side in the posterior gluteus, posterior thigh, lateral thigh, anterior thigh, medial thigh, medial lower leg and calf as well. The patient reports it is a 6 on a scale of 10 at its worst over the past week, 4 on average, 3 at its least and has a sharp pain, has tingling and cramping, radiating, on and off in intensity, but increased for about a week now. The patient reports no new motor or sensory deficits, no new bowel or bladder incontinence, no recent injuries or accident. The patient reports it is better with sitting and lying down, generally it does not awaken her from sleep at night on most nights. The patient reports no other complaints. She was hospitalized earlier for UTI this week, which resolved fairly quickly. She has been treated with antibiotics and the patient is feeling much better in that respect. PHYSICAL EXAMINATION: VITAL SIGNS: The patient's blood pressure is 126/78, pulse is 68, respirations are 16, temperature 97.7 degrees, height is 5 feet 1 inch, weight is 230 pounds. GENERAL: The patient is awake, alert, oriented, appropriate, very pleasant demeanor. HEENT: Head shows normocephalic, atraumatic. Extraocular movements are intact and symmetrical. Oral cavity: Mucous membranes moist and pink. Dentition is intact. NECK: Shows anterior throat supple without palpable lymphadenopathy noted. Swallow reflex symmetrical. CHEST: Shows normal on inspection. Breath sounds are clear bilaterally. HEART: Shows S1, S2 clear. No murmurs auscultated. ABDOMEN: Soft, nontender, nondistended. No palpable organomegaly is noted. No rebound or guarding demonstrated. BACK: Shows spine grossly in the midline. Some increased thoracic kyphosis and flattening of lumbar lordotic curvature. Lumbar paraspinous muscle shows symmetrical on inspection; on palpation shows some moderate tenderness diffusely bilaterally going diffusely without radiation. EXTREMITIES: The patient's lower extremities show deep tendon reflexes at 1+ in the patellar and tendo-calcaneus tendons are equal. Motor exam is approximately 3-4 on a scale of 5 on the right but with dorsiflexion and extension, 5/5 on the left. Peripheral pulses are 1+ posterior tibial. No peripheral edema is noted bilaterally. Options were discussed with the patient. The patient's old chart was reviewed as her current medication regimen updated. Current review of systems updated today as well. We will proceed with a lumbar epidural steroid injection today first in this series with fluoroscopic guidance. Risks were again discussed including, but not limited to bleeding, infection, possibility of epidural hematoma, subsequent neurological compromise, dural puncture, headaches, spinal cord and/or nerve damage, side effects of steroid medication and poor results regarding pain control. The patient understands and wished to proceed. The patient will return to clinic in approximately 2 weeks for followup. She was counseled on return appointment, activity level and side effects to be aware of. DIAGNOSIS: Lumbar radiculopathy with lumbar degenerative disk disease. PROCEDURE: Lumbar epidural steroid injection, translaminar approach at L4-L5 level using C-arm fluoroscopic guidance under sterile prep and drape using local anesthetic. MEDICATION INJECTED: A total of 120 mg of Depo-Medrol plus 10 mL of preservative-free normal saline and 2 mL of contrast. CONDITION AT DISCHARGE: Stable. The patient tolerated the procedure well, had no complications. ISABELLA KLEIN MD DR: JOEY/natalya JOB#: [id number] / [id number]
== END ==
LOC: PNCL 11:46
PROVIDERS: ATTEND Anesthesiology
DX: M51.16 Intervertebral disc disorders with radiculopathy, lumbar region (principal)
CPT/HCPCS: 62323; J1030; J1040; Q9965

== ENCOUNTER → 2019-06-10 | Outpatient (CLI) | payer MEDICARE ==
[~2019-06-10] MED LIST changes: +CEFD300C PO; +NYST15PO9 TP; +POLY2500 PO; +TRAM100T2 PO; -VERA80TA2 PO; +VERA80TA4 PO
[2019-06-10 11:07] VITALS: BP 109/56
--- NOTE | 2019-06-10 18:37 | PAIN ---
DATE OF SERVICE: 06/10/2019 PROGRESS NOTE FOR PAIN CLINIC DIAGNOSES: Lumbar radiculopathy with lumbar degenerative disk disease. HISTORY OF PRESENT ILLNESS: The patient is a 69-year-old female who returns for followup status post lumbar epidural steroid injection x 1 on 03/24/2019. The patient did well with this with about 50% improvement in the low back and bilateral lower extremity pain, worse on the right side than the left now with pain radiating to posterior gluteus, posterior thigh and calf and across the low back as well. The patient reports it is at 10 on a scale of 10 at its worst, 7 on average and 6 at its least. The patient was recently discharged from the hospital. She had a UTI and was getting Rocephin from that and is going to a step-down senior living later this week. She has been discharged, still significant pain in her low back, worse with walking, standing, changing positions, describes a burning pain, radiating, becoming more severe, more unbearable with activity. The patient reports it has been waking her from sleep. Reports no new motor or sensory deficits. No bowel or bladder incontinence however. PHYSICAL EXAMINATION: VITAL SIGNS: The patient's blood pressure 143/99, pulse 94, respirations 16 and temperature 98.0 degrees Fahrenheit. GENERAL: The patient is awake, alert, oriented, appropriate, very pleasant demeanor. HEENT: Head shows normocephalic, atraumatic. Extraocular movements are intact and symmetrical. Oral cavity: Mucous membranes moist and pink. Dentition is intact. NECK: Shows anterior throat supple without palpable lymphadenopathy noted. Swallow reflex symmetrical. CHEST: Shows normal on inspection. Breath sounds are clear bilaterally. HEART: Shows S1, S2 clear. ABDOMEN: Soft, nontender, nondistended. No palpable organomegaly is noted. No rebound or guarding demonstrated. BACK: Shows spine grossly in the midline. Normal appearing thoracic kyphosis and lumbar lordotic curvature is slightly flattened. Lumbar paraspinous muscle shows symmetrical on inspection, on palpation shows some moderate tenderness diffusely bilaterally going diffusely without significant radiation. EXTREMITIES: The patient's lower extremities show deep tendon reflexes 1+ patellar and tendo calcaneus tendons are equal. Motor exam is approximately 3-4 on a scale of 5 on the right and 5/5 on the left with dorsiflexion and extension. Peripheral pulses are 1+. No peripheral edema is noted. IMPRESSION: Options were discussed with the patient. The patient's old chart was reviewed as her current medication regimen updated. Current review of systems updated today as well. We will proceed with a second in a series of lumbar epidural steroid injection today with fluoroscopic guidance. The risks were discussed including but not limited to bleeding, infection, possibility of epidural hematoma, subsequent neurological compromise, dural puncture, headaches, spinal cord and/or nerve damage, side effects of steroid medication and poor results regarding pain control. The patient understands and wished to proceed. The patient will return to the clinic in approximately 2 weeks for followup. She was counseled on return appointment, activity level and side effects to be aware of. DIAGNOSIS: Lumbar radiculopathy with lumbar degenerative disk disease. PROCEDURE: Lumbar epidural steroid injection, translaminar approach, L4-L5 level using C-arm fluoroscopic guidance under sterile prep and drape using local anesthetic. MEDICATION INJECTED: A total of 120 mg Depo-Medrol plus 10 mL of preservative-free normal saline and 2 mL of contrast. CONDITION AT DISCHARGE: Stable. The patient tolerated procedure well, had no complications. ISABELLA KLEIN MD DR: JOEY/natalya JOB#: [id number] / [id number]
== END ==
LOC: PNCL 13:32
PROVIDERS: ATTEND Anesthesiology
DX: M51.16 Intervertebral disc disorders with radiculopathy, lumbar region (principal)
CPT/HCPCS: 62323; J1030; J1040; Q9965

== ENCOUNTER 2019-06-21 12:32 | Emergency (ER) | payer MEDICARE ==
[~2019-06-21] VITALS: Ht 154.9 cm; Wt 105.9 kg
[~2019-06-21 12:32] MED LIST changes: -IOHEXOL 180 MG/ML 10 ML VIAL. ONE; -methylPREDNISolone ACETATE 40 MG/ML VIAL. ONE; -methylPREDNISolone ACETATE 80 MG/ML VIAL. ONE
--- NOTE | 2019-06-21 13:17 | RAD ---
EXAM: Right knee, 3 views; right ankle, 3 views HISTORY: Pain and swelling. COMPARISON: None. FINDINGS: Right knee: 3 views of the right knee are obtained. There is a right knee arthroplasty in expected position. There is no evidence of prosthesis loosening or periprosthetic fracture. No joint effusion is seen. There is enthesopathy along the superior patella. There is a small bone fragment along the inferior patella and superior to the anterior tibial tubercle. Right ankle: 3 views of the right ankle are obtained. There is a mildly displaced fracture of the distal fibular metaphysis with approximately 1 cortical width displacement along the fracture line. There are corticated fracture fragments due to remote trauma along the inferior medial malleolus. There is lateral ankle soft tissue swelling. There is internal fixation of the first through third tarsometatarsal joints. There is no osteochondral lesion. There is a small plantar spur. IMPRESSION: 1. Mildly displaced distal fibular metaphyseal fracture with associated soft tissue swelling. 2. Right knee arthroplasty in expected position. 3. Postoperative changes involving the first through third tarsometatarsal joints. 4. Small plantar spur. Electronically signed by: Kati Abrams MD (06/21/2019 1:14 PM) [id number]
[2019-06-21 13:28] LABS: BASO % 0 % (0-3); EOS # 0.1 x10^3/uL (0.0-0.7); EOS % 1 % (0-3); HEMATOCRIT 32.6 % (36.0-47.0); HEMOGLOBIN 10.7 g/dL (12.0-15.5); LYMPH # 1.3 x10^3/uL (1.0-4.8); LYMPH % 22 % (24-48); MEAN CORPUSCULAR HEMOGLOBIN 26 pg (25-35); MEAN CORPUSCULAR HGB CONC 33 g/dL (31-37); MEAN CORPUSCULAR VOLUME 79 fL (79-100); MONO # 0.7 x10^3/uL (0.0-1.1); MONO % 12 % (0-9); NEUT # 3.9 x10^3/uL (1.8-7.7); NEUT % 65 % (31-73); PLATELET COUNT 278 x10^3/uL (140-400); RED BLOOD COUNT 4.12 x10^6/uL (3.50-5.40); RED CELL DISTRIBUTION WIDTH 16.3 % (11.5-14.5)
[2019-06-21 13:33] LABS: CALCIUM 8.6 mg/dL (8.5-10.1); GFR 55.3; POTASSIUM 4.2 mmol/L (3.5-5.1)
[2019-06-21 13:39] LABS: ALBUMIN 2.9 g/dL (3.4-5.0); ALBUMIN/GLOBULIN RATIO 0.8 (1.0-1.7); MAGNESIUM 1.8 mg/dL (1.8-2.4); TOTAL BILIRUBIN 0.3 mg/dL (0.2-1.0); TOTAL PROTEIN 6.6 g/dL (6.4-8.2)
[2019-06-21 13:48] LABS: CREATINE KINASE 12 U/L (26-192)
[2019-06-21 14:06] VITALS: BP 110/53
[2019-06-21 14:26] LABS: BILIRUBIN,URINE NEGATIVE (NEG); CLARITY,URINE CLOUDY; COLOR,URINE YELLOW; NITRITE,URINE POSITIVE (NEG); PH,URINE 5.5; PROTEIN,URINE NEGATIVE (NEG-TRACE); UROBILINOGEN,URINE 0.2 mg/dL (0.2 mg/dL)
[2019-06-21 14:35] LABS: BACTERIA,URINE MANY /HPF (0-FEW); SQUAMOUS EPITHELIAL CELL,UR FEW /LPF; WBC,URINE TNTC /HPF (0-4)
--- NOTE | 2019-06-21 14:41 | PHYS DOC ---
Past Medical History Past Medical History: Diverticulitis, Diverticulosis, Other Additional Past Medical Histor: DDD Past Surgical History: No Surgical History Smoking Status: Never Smoker Alcohol Use: Rarely Drug Use: None Adult General Chief Complaint Chief Complaint: MECHANICAL FALL HPI HPI 69-year-old female presents via EMS from [facility] with known right ankle fracture. Patient reports episode of dizziness causing patient to fall forward while getting up to use restroom last night. Reports somehow came down on right ankle. Denies headache, neck pain, or loss of consciousness. Denies use of blood thinners. Patient reports some dysuria and increased urinary frequency. Patient reports concern for acute UTI. Patient does report taking hydrocodone for pain at custodial just prior to arrival. Review of Systems Review of Systems Constitutional: Denies fever or chills Eyes: Denies redness or eye pain HENT: Denies nasal congestion or sore throat Respiratory: Denies cough or shortness of breath Cardiovascular: Denies chest pain or palpitations GI: Denies abdominal pain, nausea, or vomiting : Reports dysuria and increased urinary frequency Musculoskeletal: Denies back pain; reports right ankle pain and swelling Integument: Denies rash or skin lesions Neurologic: Denies headache, focal weakness or sensory changes; reports dizzy episode Complete systems were reviewed and found to be within normal limits, except as documented in this note. Current Medications Current Medications Current Medications Medications (Trade) Dose Ordered Sig/Isidoro Start Time Stop Time Status Last Admin Dose Admin Acetaminophen/ Hydrocodone Bitart (Lortab 5/325) 1 tab 1X ONCE 06/21/19 14:45 06/21/19 14:46 DC 06/21/19 14:50 1 TAB Ceftriaxone Sodium (Rocephin) 1 gm 1X ONCE 06/21/19 14:45 06/21/19 14:46 DC 06/21/19 14:50 1 GM Allergies Allergies Allergies Coded Allergies Type Severity Reaction Last Updated Verified strawberry Allergy Severe Swelling 06/07/19 Yes Penicillins Allergy Intermediate 03/21/19 Yes clindamycin Allergy Intermediate 12/22/14 Yes levofloxacin Allergy Intermediate burning/itching at iv site 03/22/19 Yes codeine Adverse Reaction Intermediate Itching; 04/29/18 Yes morphine Adverse Reaction Mild nausea/vomiting 04/29/18 Yes Physical Exam Physical Exam Constitutional: Well developed, well nourished, no acute distress, non-toxic appearance HENT: Normocephalic, atraumatic, oropharynx moist Eyes: PERRL, EOMI, conjunctiva normal, no discharge Neck: Normal range of motion, no midline tenderness, supple Cardiovascular: Heart rate normal, regular rhythm Lungs & Thorax: Bilateral breath sounds clear to auscultation, no wheezing Abdomen: Soft, no tenderness Skin: Warm, dry, no erythema, no rash Back: No midline tenderness, no CVA tenderness Extremities: Right lateral malleolus tenderness with swelling and ecchymosis about ankle, proximal fibular tenderness on palpation, limb neurovascularly intact Neurologic: Alert and oriented X 3, normal motor function, normal sensory function, no focal deficits noted Psychologic: Affect normal, judgment normal Current Patient Data Vital Signs Vital Signs Date Time Temp Pulse Resp B/P (MAP) Pulse Ox O2 Delivery O2 Flow Rate FiO2 06/21/19 14:06 68 96 06/21/19 12:39 99.0 20 142/72 (95) Room Air 99.0 Lab Values Laboratory Tests Test 06/21/19 13:05 06/21/19 13:50 White Blood Count 6.0 x10^3/uL (4.0-11.0) Red Blood Count 4.12 x10^6/uL (3.50-5.40) Hemoglobin 10.7 g/dL (12.0-15.5) L Hematocrit 32.6 % (36.0-47.0) L Mean Corpuscular Volume 79 fL (79-100) Mean Corpuscular Hemoglobin 26 pg (25-35) Mean Corpuscular Hemoglobin Concent 33 g/dL (31-37) Red Cell Distribution Width 16.3 % (11.5-14.5) H Platelet Count 278 x10^3/uL (140-400) Neutrophils (%) (Auto) 65 % (31-73) Lymphocytes (%) (Auto) 22 % (24-48) L Monocytes (%) (Auto) 12 % (0-9) H Eosinophils (%) (Auto) 1 % (0-3) Basophils (%) (Auto) 0 % (0-3) Neutrophils # (Auto) 3.9 x10^3/uL (1.8-7.7) Lymphocytes # (Auto) 1.3 x10^3/uL (1.0-4.8) Monocytes # (Auto) 0.7 x10^3/uL (0.0-1.1) Eosinophils # (Auto) 0.1 x10^3/uL (0.0-0.7) Basophils # (Auto) 0.0 x10^3/uL (0.0-0.2) Sodium Level 137 mmol/L (136-145) Potassium Level 4.2 mmol/L (3.5-5.1) Chloride Level 103 mmol/L (98-107) Carbon Dioxide Level 28 mmol/L (21-32) Anion Gap 6 (6-14) Blood Urea Nitrogen 18 mg/dL (7-20) Creatinine 1.0 mg/dL (0.6-1.0) Estimated GFR (Cockcroft-Gault) 55.3 BUN/Creatinine Ratio 18 (6-20) Glucose Level 102 mg/dL (70-99) H Calcium Level 8.6 mg/dL (8.5-10.1) Magnesium Level 1.8 mg/dL (1.8-2.4) Total Bilirubin 0.3 mg/dL (0.2-1.0) Aspartate Amino Transferase (AST) 9 U/L (15-37) L Alanine Aminotransferase (ALT) 18 U/L (14-59) Alkaline Phosphatase 97 U/L (46-116) Creatine Kinase 12 U/L (26-192) L Creatine Kinase MB (Mass) < 0.5 ng/mL (0.0-3.6) Creatine Kinase MB Relative Index % (0-4) Troponin I Quantitative < 0.017 ng/mL (0.000-0.055) Total Protein 6.6 g/dL (6.4-8.2) Albumin 2.9 g/dL (3.4-5.0) L Albumin/Globulin Ratio 0.8 (1.0-1.7) L Urine Collection Type Unknown Urine Color Yellow Urine Clarity Cloudy Urine pH 5.5 Urine Specific Leola 1.020 Urine Protein Negative mg/dL (NEG-TRACE) Urine Glucose (UA) Negative mg/dL (NEG) Urine Ketones (Stick) Negative mg/dL (NEG) Urine Blood Small (NEG) Urine Nitrite Positive (NEG) Urine Bilirubin Negative (NEG) Urine Urobilinogen Dipstick 0.2 mg/dL (0.2 mg/dL) Urine Leukocyte Esterase Large (NEG) Urine RBC 1-2 /HPF (0-2) Urine WBC Tntc /HPF (0-4) Urine Squamous Epithelial Cells Few /LPF Urine Bacteria Many /HPF (0-FEW) Urine Mucus Marked /LPF Laboratory Tests 06/21/19 13:05 Laboratory Tests 06/21/19 13:05 Microbiology 06/21/19 Urine Culture - Preliminary, Resulted 06/21/19 Urine Culture Result 1 (EUGENIO) - Preliminary, Resulted EKG EKG @1316 NSR at 66bpm, NO ST elevation Radiology/Procedures Radiology/Procedures PROCEDURE: KNEE RIGHT 3V & RIGHT ANKLE 3V HISTORY: Pain and swelling. COMPARISON: None. FINDINGS: Right knee: 3 views of the right knee are obtained. There is a right knee arthroplasty in expected position. There is no evidence of prosthesis loosening or periprosthetic fracture. No joint effusion is seen. There is enthesopathy along the superior patella. There is a small bone fragment along the inferior patella and superior to the anterior tibial tubercle. Right ankle: 3 views of the right ankle are obtained. There is a mildly displaced fracture of the distal fibular metaphysis with approximately 1 cortical width displacement along the fracture line. There are corticated fracture fragments due to remote trauma along the inferior medial malleolus. There is lateral ankle soft tissue swelling. There is internal fixation of the first through third tarsometatarsal joints. There is no osteochondral lesion. There is a small plantar spur. IMPRESSION: 1. Mildly displaced distal fibular metaphyseal fracture with associated soft tissue swelling. 2. Right knee arthroplasty in expected position. 3. Postoperative changes involving the first through third tarsometatarsal joints. 4. Small plantar spur. Electronically signed by: Kati Abrams MD (06/21/2019 1:14 PM) [id number] Course & Med Decision Making Course & Med Decision Making Pertinent Labs and Imaging studies reviewed. (See chart for details) Patient presents with report of fall last night after a dizzy episode. Patient does report concerned for possible UTI. Patient neurologically intact. Denies head trauma or neck pain. Patient with history of known ankle fracture. Labs obtained and posted to chart. EKG stable. UA with signs of acute infection. Empiric antibiotic initiated. Patient also complaining of lateral right knee pain. Imaging of knee and ankle with findings of mildly displaced distal fibular fracture. Walking boot applied. Patient advised to use walker. Pain addressed. Patient stable for discharge with outpatient follow-up with PCP/orthopedics. Orthopedic referral provided. Discussed findings and plan with patient, who acknowledges understanding and agreement. Dragasc[employer] Disclaimer Dragon Disclaimer This electronic medical record was generated, in whole or in part, using a voice recognition dictation system. Departure Departure Impression: Primary Impression: Fracture of distal end of right fibula Additional Impression: UTI (urinary tract infection) Disposition: HOME, SELF-CARE Condition: STABLE Referrals: YAHAIRA PORTER (PCP) EVER RICARDO MD Patient Instructions: Fibular Fracture, Ankle, Adult, Undisplaced, Treated with Immobilization, Urinary Tract Infection, [id number] Scripts Cephalexin (KEFLEX) 500 Mg Capsule 500 MG PO TID for 7 Days, #21 CAP Prov: SUNDAY MEJIA DO 06/21/19 Problem Qualifiers Primary Impression: Fracture of distal end of right fibula Encounter type: initial encounter Fracture type: closed Fracture morphology: unspecified fracture morphology Qualified Codes: S82.831A - Other fracture of upper and lower end of right fibula, initial encounter for closed fracture Additional Impression: UTI (urinary tract infection) Urinary tract infection type: acute cystitis Hematuria presence: with hematuria Qualified Codes: N30.01 - Acute cystitis with hematuria SUNDAY MEJIA DO Jun 21, 2019 14:41
[2019-06-21] MEDS ORDERED: CEPH-264 PO (14:44)
[2019-06-21] MEDS ORDERED: cefTRIAXone IV Push 1 GM VIAL. IVP ONE (14:45)
[2019-06-21] MEDS ORDERED: HYDROcodone/APAP 5/325MG 1 TAB TABLET PO ONE (14:45)
--- NOTE | 2019-06-22 10:08 | EKG ---
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
== END 2019-06-21 15:25 | disposition home or self-care (01) ==
LOC: ER 12:32
DX: S82.831A Other fracture of upper and lower end of right fibula, initial encounter for closed fracture (principal); N30.01 Acute cystitis with hematuria; M25.561 Pain in right knee; M72.2 Plantar fascial fibromatosis; Z88.0 Allergy status to penicillin; Z88.1 Allergy status to other antibiotic agents; Z88.5 Allergy status to narcotic agent; Z91.018 Allergy to other foods; W18.39XA Other fall on same level, initial encounter; Y93.89 Activity, other specified; Y92.89 Other specified places as the place of occurrence of the external cause; Y99.8 Other external cause status
CPT/HCPCS: 36415; 73562; 73610; 80053; 81001; 82553; 83735; 84484; 85025; 87086; 93005; 96374; 99285; J0696

== ENCOUNTER → 2020-06-09 | Outpatient (CLI) | payer MEDICARE ==
[~2020-06-09] MED LIST changes: +CEPH-264 PO; +CONTRAST GIVEN. MC PRN; +IOHEXOL 240 MG/ML 50ML VIAL. PO ONE; -OMEP40CA45 PO; +OMEP40CA7 PO; -POLY17PO28 PO; +POLY17PO52 PO; +SERT-267 PO; +SERT-268 PO; -SERT100T8 PO; -SERT50TA8 PO
--- NOTE | 2020-06-09 17:56 | RAD ---
EXAM: CT Abdomen and Pelvis without IV contrast INDICATION: Reason: PELVIC ABCESS / Spl. Instructions: 30ML OMNI 240 PO / History: TECHNIQUE: Multi-detector row CT images were acquired from the lung bases through the abdomen and pel vis without the use of IV contrast. Sagittal and coronal images were acquired from the transaxial umang a. All CT scans performed at this facility utilize dose optimization techniques as appropriate to the exam, including the following: Automated exposure control and adjustment of the mA and/or KV accordi ng to patient size (this includes techniques or standardized protocols for targeted exams where dose is indication/reason for exam). ORAL CONTRAST: None COMPARISON: Abdomen and pelvis CT with IV contrast of 05/16/2017. FINDINGS: The absence of IV contrast limits evaluation of soft tissue pathology. LOWER CHEST: Large hiatal hernia. LIVER: Unremarkable BILIARY SYSTEM: Gallbladder surgically absent. Postcholecystectomy biliary prominence is present. The common duct at the sue hepatis measuring [address] PANCREAS: Fatty involution. SPLEEN: Unremarkable ADRENALS: Unremarkable KIDNEYS & URETERS: Inferior pole 3.1 cm left renal cyst requires no additional imaging follow-up. No hydronephrosis or radiopaque stones in either kidney. No hydroureter or perinephric or periureteral soft tissue stranding. BLADDER: Unremarkable REPRODUCTIVE ORGANS: Unremarkable GASTROINTESTINAL: Stomach and small bowel are unremarkable. Scattered colonic diverticuli are redemon strated. The appendix is normal. MESENTERY/PERITONEUM/RETROPERITONEUM: Unremarkable. The pelvic drain has since been removed. VASCULAR: Scattered arterial calcifications but no abdominal aortic aneurysm. LYMPH NODES: No adenopathy OSSEOUS & SOFT TISSUES: Ventral abdominal wall shows an infraumbilical collection 3 cm deep by 3.9 c m wide and 3.4 cm tall (axial image 64 of series 2 and sagittal image 51 of series 5). Rightward conv exity scoliotic curvature of the lumbar spine is redemonstrated. . IMPRESSION: The pelvic abscess previously treated with a drainage catheter appears to have resolved and the anjel ter has been removed. However, along the ventral infraumbilical subcutaneous soft tissues is a 3.0 x 3.9 x 3.4 cm collection that could represent a new abscess. It can be further evaluated by ultrasound if clinically warranted. Otherwise no evidence of an abscess in the included field of view is apprec iated. Electronically signed by: Tiarra Trujillo MD (06/09/2020 5:53 PM) [id number]
== END ==
LOC: CT 14:44
PROVIDERS: ATTEND Surgery
DX: N28.1 Cyst of kidney, acquired (principal); K44.9 Diaphragmatic hernia without obstruction or gangrene; N94.9 Unspecified condition associated with female genital organs and menstrual cycle; M43.8X6 Other specified deforming dorsopathies, lumbar region
CPT/HCPCS: 74176; Q9966